=== PATIENT | male | born 1985 | race Caucasian/White ===

== ENCOUNTER 2020-09-09 15:13 | Emergency (ER) | payer MEDICARE, MEDICAID ==
[~2020-09-09] VITALS: Ht 162 cm; Wt 85.0 kg
[2020-09-09 15:18] VITALS: BP 159/86
--- NOTE | 2020-09-09 15:20 | ED Upper Extremity ---
General Chief Complaint: Upper Extremity Stated Complaint: RIGHT MIDDLE FINGER INJ History of Present Illness Date Seen by Provider: Sep 09, 2020 Time Seen by Provider: 15:20 Initial Comments 35-year-old male presents with injury to the distal aspect of his right middle finger. Patient reports he injured it 3 days ago and has some swelling at the tip of the finger. He states that he is not having any pain. He has full range of motion. Presents because of the swelling is got little bit of black finge rnail at the base of the fingernail. Patient presents because he just wants it looked at. Allergies and Home Medications Patient Home Medication List Home Medication List Reviewed: Yes Review of Systems Constitutional: no symptoms reported EENTM: no symptoms reported Respiratory: no symptoms reported Cardiovascular: no symptoms reported Gastrointestinal: no symptoms reported Genitourinary: no symptoms reported Musculoskeletal: see HPI Skin: see HPI Psychiatric/Neurological: No Symptoms Reported Physical Exam Vital Signs Vital Signs - First Documented 09/09/20 15:18 Temp 37.3 Pulse 110 Resp 16 B/P (MAP) 159/86 (110) Pulse Ox 99 O2 Delivery Room Air Capillary Refill : Height, Weight, BMI Height: '" Weight: lbs. oz. kg; BMI Method: General Appearance: no apparent distress Neck: full range of motion Cardiovascular: normal peripheral pulses, regular rate, rhythm Respiratory: chest non-tender, lungs clear Shoulder: normal inspection Elbow/Forearm: normal inspection Wrist: Yes normal inspection Hand: normal ROM, Right, swelling (Just below aspect right middle finger) Neurologic/Psychiatric: alert, normal mood/affect, oriented x 3 Progress/Results/Core Measures Results/Orders Vital Signs/I&O 09/09/20 15:18 Temp 37.3 Pulse 110 Resp 16 B/P (MAP) 159/86 (110) Pulse Ox 99 O2 Delivery Room Air Progress Progress Note : Progress Note Patient with contusion of the distal phalanx of the right middle finger with small hematoma on proximal aspect of the nail. Patient was offered x-ray and declined. Discussed with patient supportive care. Patient stable and discharged Departure Impression Primary Impression: Contusion of right middle finger with damage to nail Qualified Codes: S60.131A - Contusion of right middle finger with damage to nail, initial encounter Disposition: 01 HOME, SELF-CARE Condition: Stable Departure-Patient Inst. Referrals: SELF,ARLIN HANNAH (PCP/Family) Primary Care Physician Patient Instructions: Bruising Under the Nail, Common Finger Injuries (DC), Taking Care of Bruises Add. Discharge Instructions: Tylenol or ibuprofen as needed for pain, ice to affected area 2-3 times daily Follow-up with your primary care provider as needed All discharge instructions reviewed with patient and/or family. Voiced understanding. HENRI ANDERSON DO Sep 09, 2020 15:20
== END 2020-09-09 15:57 | disposition home or self-care (01) ==
LOC: ER FS 15:17
DX: S60.131A Contusion of right middle finger with damage to nail, initial encounter (principal); X58.XXXA Exposure to other specified factors, initial encounter
CPT/HCPCS: 99282

== ENCOUNTER 2020-09-27 16:37 | Emergency (ER) | payer MEDICARE, MEDICAID ==
[~2020-09-27] VITALS: Ht 162 cm; Wt 82.0 kg
[2020-09-27 16:40] VITALS: BP 152/83
[2020-09-27] MEDS ORDERED: TERB15CR6 (16:49)
--- NOTE | 2020-09-27 16:56 | ED Integumentary General ---
General Chief Complaint: Allergic Reaction Stated Complaint: RASH ON ARMS AND LEGS Nursing Triage Note: ARRIVED VIA AMB TO ROOM 03 WITH COMLPLAINTS OF A RASH ON BILAT ARMS AND BACK OF LEGS X1 WEEK. ALSO COMPLAINS OF A RASH ON HIS PRIVATE AREA. STATES HE HAS SEEN A DR FOR THIS RASH AND WAS PUT ON A OTC MED BUT IT IS NOT BETTER. History of Present Illness Date Seen by Provider: Sep 27, 2020 Time Seen by Provider: 16:52 Initial Comments 35-year-old male presents with, bilateral macular papular diffuse rash on his bilateral arms and legs has been there for about a week. Patient reports is itchy, patient straight wkoa-knw-pvbspbt cream that Recommended and has not worked. Patient significant other states she had a similar rash and was put on steroids and away in 3 days. Patient also has rash consistent with tinea crura has been using texn-ubl-afaseur medication for about a week with minimal improvement. No other complaints Allergies and Home Medications Home Medications Prednisone 20 Mg Tab, 20 MG PO DAILY Prescribed by: HENRI ANDERSON on 09/27/20 1701 Patient Home Medication List Home Medication List Reviewed: Yes Review of Systems Review of Systems Constitutional: see HPI EENTM: no symptoms reported Respiratory: no symptoms reported Cardiovascular: no symptoms reported Gastrointestinal: no symptoms reported Genitourinary: no symptoms reported Musculoskeletal: no symptoms reported Skin: see HPI Past Rpwecqe-Vcsmau-Okkqcg Hx Patient Social History Smoking Status: Never a Smoker Substance use?: No Alcohol Use?: No Physical Exam Vital Signs Vital Signs - First Documented 09/27/20 16:40 Temp 37.0 Pulse 92 Resp 16 B/P (MAP) 152/83 (106) Pulse Ox 98 O2 Delivery Room Air Capillary Refill : Less Than 3 Seconds General Appearance: WD/WN, no apparent distress Skin: rash Skin Problem Location: generalized Skin Problem Character: other (Tinia rash in groin, sporadic macular papular rash arms/legs ) Progress/Results/Core Measures Results/Orders Vital Signs/I&O 09/27/20 16:40 Temp 37.0 Pulse 92 Resp 16 B/P (MAP) 152/83 (106) Pulse Ox 98 O2 Delivery Room Air Blood Pressure Mean: 106 Departure Impression Primary Impression: Tinea cruris Additional Impression: Contact dermatitis Qualified Codes: L25.9 - Unspecified contact dermatitis, unspecified cause Disposition: 01 HOME, SELF-CARE Condition: Stable Departure-Patient Inst. Referrals: ARLIN MEDINA MD (PCP/Family) Primary Care Physician Patient Instructions: Jock Itch (DC), Skin Rash ED, Ringworm, Athlete's Foot, and Jock Itch, Contact Dermatitis (DC) Add. Discharge Instructions: Kbgw-hrp-wtmtzle ringworm/jock itch medication, I would recommend trying a powder form Follow-up with your primary care provider if symptoms not improving in 1 week All discharge instructions reviewed with patient and/or family. Voiced underst anding. Scripts Prednisone (Prednisone) 20 Mg Tab 20 MG PO DAILY, #4 TAB 0 Refills Prov: HENRI ANDERSON DO 09/27/20 HENRI ANDERSON DO Sep 27, 2020 16:56
[2020-09-27] MEDS ORDERED: PRD20T PO (17:01)
== END 2020-09-27 17:05 | disposition home or self-care (01) ==
LOC: EDUNIT# 16:37 → ER FS 16:39
DX: B35.6 Tinea cruris (principal); L25.9 Unspecified contact dermatitis, unspecified cause
CPT/HCPCS: 99282

== ENCOUNTER 2020-11-30 14:36 | Emergency (ER) | payer MEDICARE, MEDICAID ==
[~2020-11-30] VITALS: Ht 162 cm; Wt 83.9 kg
[~2020-11-30 14:36] MED LIST: PRD20T PO; TERB15CR6
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
[2020-11-30 15:45] VITALS: BP 141/91
== END 2020-11-30 15:45 | disposition home or self-care (01) ==
LOC: EDUNIT# 14:36 → ER FS 14:40
DX: S20.211A Contusion of right front wall of thorax, initial encounter (principal); Y04.8XXA Assault by other bodily force, initial encounter

== ENCOUNTER 2021-10-29 23:25 | Emergency (ER) | payer MEDICARE, MEDICAID ==
[~2021-10-29] VITALS: Ht 157.4 cm; Wt 70.3 kg
[2021-10-30] MEDS ORDERED: oxyCODONE/APAP 5/325MG (PERCOCET 5) TABLET PO ONE
[2021-10-30] MEDS ORDERED: PROCHLORPERAZINE 10 MG TAB (COMPAZINE) PO ONE
[2021-10-30] MEDS ORDERED: PROC-1 PO (00:06)
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
[2021-10-30 00:23] VITALS: BP 146/84
== END 2021-10-30 00:23 | disposition home or self-care (01) ==
LOC: EDUNIT# 23:25 → ER FS 23:29
DX: G43.909 Migraine, unspecified, not intractable, without status migrainosus (principal); Z28.310 Unvaccinated for COVID-19
CPT/HCPCS: 99283

== ENCOUNTER 2022-06-24 15:23 | Inpatient (IN) | payer OTHER, MEDICAID ==
[2022-06-24] VITALS (9 sets, daily range): BP systolic 92–148; BP diastolic 55–71
[~2022-06-24] VITALS: Ht 162.6 cm; Wt 75.1 kg
[~2022-06-24 15:23] MED LIST changes: +PROC-1 PO
[2022-06-24] MEDS ORDERED: NS IV 1000 ML 1,000 ML IV STA ×2 (15:32→16:53)
[2022-06-24] MEDS ORDERED: ACETAMINOPHEN 500 MG TAB (TYLENOL) PO STA (15:32)
--- NOTE | 2022-06-24 15:42 | ED Fever ---
History of Present Illness General Stated Complaint: FAST HEART RATE Source: patient, EMS, old records (notes from [facility] urgent care from Sangeeta Rice APRN) History of Present Illness Date Seen by Provider: June 24, 2022 Time Seen by Provider: 15:23 Initial Comments 37-year-old male presenting from [facility] walk-in clinic. He reports having a fever that started today. He also has had a mild dry cough. 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 He states that he is taking 2 weeks off from chemotherapy and then they were going to reassess things. He had been going to [place] for oncology care and chemotherapy. He has a port in his right chest. He denies having pain or burning with urination, diarrhea, abdominal pain, chest pain, nausea, vomiting, throat pain, runny nose. He has not taken anything for his fever. Timing/Duration: just prior to arrival Fever Quality: greater than 102 F (103.9 on arrival to ED) Fever Therapy WORKDAY FINANCIALS CONSULTANT: none Associated Symptoms: No abdominal pain, No chest pain, No confusion; cough; No diaphoresis, No headache, No muscle aches, No nausea/vomiting, No shortness of breath, No sore throat, No stiff neck, No syncope, No weakness Allergies and Home Medications Allergies Coded Allergies: No Known Drug Allergies (Unverified , 10/29/21) Patient Home Medication List Home Medication List Reviewed: Yes Prednisone (Prednisone) 20 Mg Tab, 20 MG PO DAILY Prescribed by: HENRI ANDERSON on 09/27/20 1701 Prochlorperazine Maleate (Compazine) 10 Mg Tablet, 10 MG PO Q8H Prescribed by: SULAIMAN GOVEA on 10/30/21 0006 Terbinafine HCl (Terbinafine) 15 Gm Cream..g., (Reported) Entered as Reported by: MARY CHAN on 09/27/20 1649 Review of Systems Review of Systems Constitutional: chills, fever EENTM: No nose congestion, No throat pain Respiratory: see HPI Cardiovascular: No chest pain; palpitations Gastrointestinal: No abdominal pain, No nausea, No vomiting Genitourinary: No dysuria Musculoskeletal: no symptoms reported Skin: no symptoms reported Psychiatric/Neurological: Anxiety Hematologic/Lymphatic: Other (Chemotherapy 06/15/2022 in [place] through his port) Past Sopdimu-Pcpbcd-Qzvqqv Hx Immunizations Up To Date First/Initial COVID19 Vaccinat: denies Past Medical History Surgery/Hospitalization HX: Metastatic Testicular cancer, Colon Cancer, Right Orchiectomy 03/2022, Portacath placement May 2022 Surgeries: Yes Physical Exam Vital Signs - First Documented 06/24/22 15:30 Temp 39.9 Pulse 136 Resp 19 B/P (MAP) 148/69 (95) Pulse Ox 98 O2 Delivery Room Air Capillary Refill : Height: '" Weight: lbs. oz. kg; 28.00 BMI Method: General Appearance: no apparent distress HEENT: PERRL/EOMI, pharynx normal Respiratory: chest non-tender, lungs clear, normal breath sounds, no respiratory distress, no accessory muscle use Cardiovascular: normal peripheral pulses, tachycardia Gastrointestinal: normal bowel sounds, non tender, soft, no pulsatile mass Extremities: normal range of motion, non-tender, normal capillary refill Neurologic/Psychiatric: alert, oriented x 3 Skin: normal color, warm/dry Focused Exam Lactate Level 06/24/22 15:35: Lactic Acid Level 2.04*H Lactic Acid Level Laboratory Tests Test 06/24/22 15:35 Lactic Acid Level 2.04 MMOL/L (0.50-2.00) *H Progress/Results/Core Measures Suspected Sepsis SIRS Temperature: Pulse: Respiratory Rate: Laboratory Tests 06/24/22 15:35: White Blood Count 1.4*L Blood Pressure / Mean: 06/24/22 15:35: Lactic Acid Level 2.04*H Laboratory Tests 06/24/22 15:35: Creatinine 0.87, Platelet Count 193, Total Bilirubin 0.4 Results/Orders Lab Results Laboratory Tests Test 06/24/22 15:35 06/24/22 16:40 Range/Units White Blood Count 1.4 *L 4.3-11.0 10^3/uL Red Blood Count 3.13 L 4.30-5.52 10^6/uL Hemoglobin 8.6 L 13.3-17.7 g/dL Hematocrit 26 L 40-54 % Mean Corpuscular Volume 83 80-99 fL Mean Corpuscular Hemoglobin 28 25-34 pg Mean Corpuscular Hemoglobin Concent 33 32-36 g/dL Red Cell Distribution Width 13.3 10.0-14.5 % Platelet Count 193 130-400 10^3/uL Mean Platelet Volume 9.1 9.0-12.2 fL Immature Granulocyte % (Auto) 0 % Neutrophils (%) (Auto) 19 L 42-75 % Lymphocytes (%) (Auto) 46 H 12-44 % Monocytes (%) (Auto) 35 H 0-12 % Eosinophils (%) (Auto) 0 0-10 % Basophils (%) (Auto) 1 0-10 % Neutrophils # (Auto) 0.3 L 1.8-7.8 10^3/uL Lymphocytes # (Auto) 0.7 L 1.0-4.0 10^3/uL Monocytes # (Auto) 0.5 0.0-1.0 10^3/uL Eosinophils # (Auto) 0.0 0.0-0.3 10^3/uL Basophils # (Auto) 0.0 0.0-0.1 10^3/uL Immature Granulocyte # (Auto) 0.0 0.0-0.1 10^3/uL Neutrophils % (Manual) 14 % Lymphocytes % (Manual) 34 % Monocytes % (Manual) 28 % Eosinophils % (Manual) 1 % Band Neutrophils 7 % Atypical Lymphocytes 16 % Platelet Estimate NORMAL Hypochromasia 1+ Microcytosis 2+ Macrocytosis 1+ Sodium Level 129 L 135-145 MMOL/L Potassium Level 4.2 3.6-5.0 MMOL/L Chloride Level 97 L 98-107 MMOL/L Carbon Dioxide Level 22 21-32 MMOL/L Anion Gap 10 5-14 MMOL/L Blood Urea Nitrogen 12 7-18 MG/DL Creatinine 0.87 0.60-1.30 MG/DL Estimat Glomerular Filtration Rate 115 BUN/Creatinine Ratio 14 Glucose Level 120 H 70-105 MG/DL Lactic Acid Level 2.04 *H 0.50-2.00 MMOL/L Calcium Level 8.7 8.5-10.1 MG/DL Corrected Calcium 9.2 8.5-10.1 MG/DL Total Bilirubin 0.4 0.1-1.0 MG/DL Aspartate Amino Transf (AST/SGOT) 10 5-34 U/L Alanine Aminotransferase (ALT/SGPT) 11 0-55 U/L Alkaline Phosphatase 81 40-136 U/L C-Reactive Protein 5.20 H <0.50 MG/DL Total Protein 6.4 6.4-8.2 GM/DL Albumin 3.4 3.2-4.5 GM/DL Influenza Type A (RT-PCR) Not Detected Not Detecte Influenza Type B (RT-PCR) Not Detected Not Detecte SARS-CoV-2 RNA (RT-PCR) Not Detected Not Detecte Urine Color DARK YELLOW Urine Clarity CLEAR Urine pH 8.0 5-9 Urine Specific Delta 1.020 1.016-1.022 Urine Protein NEGATIVE NEGATIVE Urine Glucose (UA) NEGATIVE NEGATIVE Urine Ketones NEGATIVE NEGATIVE Urine Nitrite NEGATIVE NEGATIVE Urine Bilirubin NEGATIVE NEGATIVE Urine Urobilinogen 0.2 < = 1.0 MG/DL Urine Leukocyte Esterase NEGATIVE NEGATIVE Urine RBC (Auto) NEGATIVE NEGATIVE Urine RBC NONE /HPF Urine WBC 0-2 /HPF Urine Squamous Epithelial Cells NONE /HPF Urine Crystals NONE /LPF Urine Bacteria NEGATIVE /HPF Urine Casts NONE /LPF Urine Mucus SMALL H /LPF Urine Culture Indicated NO My Orders Orders - LORETA KAUR MD Cbc With Automated Diff (06/24/22 15:32) Comprehensive Metabolic Panel (06/24/22 15:32) Blood Culture (06/24/22 15:32) Ua Culture If Indicated (06/24/22 15:32) Chest 1 View Ap/Pa Only (06/24/22 15:32) Ed Iv/Invasive Line Start (06/24/22 15:32) Crp Fs (06/24/22 15:32) Lactic Acid Analyzer (06/24/22 15:32) Covid 19 Inhouse Test (06/24/22 15:32) Influenza A And B By Pcr (06/24/22 15:32) Isolation Central Supply Req (06/24/22 15:32) Implanted Port: Access (06/24/22 15:32) Ns Iv 1000 Ml (Sodium Chloride 0.9%) (06/24/22 15:32) Acetaminophen Tablet (Tylenol Tablet) (06/24/22 15:32) Manual Differential (06/24/22 15:35) Cefepime Injection (Maxipime Injection) (06/24/22 16:53) Vancomycin Injection (Vancomycin Injecti (06/24/22 16:53) Ns Iv 1000 Ml (Sodium Chloride 0.9%) (06/24/22 16:53) Ed Admission (Communication) (06/24/22 16:54) Vital Signs/I&O 06/24/22 06/24/22 15:30 18:23 Temp 39.9 Pulse 136 89 Resp 19 16 B/P (MAP) 148/69 (95) 123/78 Pulse Ox 98 100 O2 Delivery Room Air Room Air Capillary Refill : Progress Note #1: Progress Note Potential diagnosis of sepsis, COVID, influenza, pneumonia, urinary tract infection, pyelonephritis, bronchitis. Access is implanted port and send labs for complete blood count, comprehensive metabolic profile, blood cultures, lactic acid, CRP, urinalysis, COVID swab, influenza swab. Placed on cardiac leather repairer to watch his heart rate and rhythm. My initial interpretation of his leather repairer shows tachycardia with a heart rate of 130. Obtain electrocardiogram for further evaluation of his heart rate and rhythm. Single view chest x-ray to evaluate for possible pathology in his chest and lungs to contribute to his fever and cough. Administer normal saline 1 L IV fluid bolus for hydration, acetaminophen 1 g p.o. for his fever. From review of his external prescription history he had Levofloxacin 500 mg po q day x 7days prescribed by Sai Viveros today. Progress Note #2: Time: 15:52 Progress Note On my personal interpretation and review of his electrocardiogram he does not have any acute ST elevation. Limited personal interpretation and review of his 1 view chest x-ray did not appreciate any acute infiltrate or effusion. Port on the right side of his chest appears to be in good position. Progress Note #3: Time: 16:36 Progress Note Labs came back showing he was neutropenic with WBC count of 1.4 with 19% neutrophils on automated differential. He was also anemic with hemoglobin of 8.6. His lactic Acid level was high indicating abnormally low tissue oxygenation. Was at upper limits of normal at 2.04. His electrolytes showed a sodium of 129 with potassium of 4.2, BUN 12, creatinine 0.87. His CRP was elevated to 5.2. I did call and discussed with Dr. Viveros his oncologist through [facility] [place]. He recommended that the patient being neutropenic and febrile that he would need cefepime and since he has borderline hypotension he would also need vancomycin. IV antibiotics and fluids should be continued at least until he has 48-hour blood cultures coming back either negative or showing direction for care. [address] Cochran, the on-call hospitalist for [facility]. Reviewed patient's presentation and his medical history of testicular cancer metastasized to the colon. He is undergoing chemotherapy with his last treatment on June 15. Currently has neutropenic fever with a white count of 1.4 and temperature of 103.9 on arrival to the ED. He does not have a specific source of infection at this point. His chest x-ray looked clear. His blood pressure has been soft with a systolic pressure between 99-1 tens systolic. His heart rate which started at 130 has improved to 1 15-1 20 with hydration and treating his fever. We will continue with IV fluids and I did speak with Dr. Viveros who recommended admission for neutropenic fever and getting him on cefepime and vancomycin. Waiting for blood cultures to be negative or show something specific to direct care at 48 hours before switching to oral medications. She accepted him for admission to a cardiac stepdown bed with his tachycardia and febrile neutropenia. She will place queued orders and continue to follow the patient. He is showing improvement with his temperature coming down with treatment and heart rate improving with treatment. He was anxious and upset about having to be admitted but understood it was necessary to treat him. ECG Initial ECG Impression Date: June 24, 2022 Initial ECG Impression Time: 15:46 Initial ECG Rate: 127 Initial ECG Rhythm: S.Tach Initial ECG Comparisson: No Previous ECG Available Comment On my personal interpretation and review of his electrocardiogram that shows sinus tachycardia with a heart rate of 127 bpm. WA interval 119 ms. Incomplete right bundle branch block. No acute ST elevation. QT interval 265 ms with a QTc interval 340 ms. There is no prior tracing available for comparison. Diagnostic Imaging Diagonstic Imaging: Xray Plain Films/CT/US/NM/MRI: chest Comments NAME: CAMILLA ANGUIANO [facility] REC#: [id number] PT STATUS: REG ER : 1985 PHYSICIAN: LORETA KAUR MD ADMIT DATE: 06/24/22/ER FS Draft Date of Exam:06/24/22 CHEST 1 VIEW AP/PA ONLY INDICATION: Shortness of breath with chest rash, history of testicular and colon cancer, undergoing chemotherapy. COMPARISON: I have no priors. FINDINGS: There is an indwelling right IJ port catheter with the tip secured to the cavoatrial junction in good alignment. The lungs are clear, and there is no failure pattern. No effusion or pneumothorax. The hilar and mediastinal contours are normal. No visible lung mass. No suspect bony pathology. IMPRESSION: Negative. Dictated on workstation # [id number] Dict: 06/24/22 1553 Trans: 06/24/22 1559 [id number] Interpreted by: VANESSA COUCH Electronically signed by: Reviewed: Reviewed by Me (I reviewed radiologist report at 1612) Critical Care Note Critical Care Total Time (minutes) 45 minutes Progress I spent at least 45 minutes of critical care time with the patient. Time excludes separately billable procedures. Time spent obtaining history from patient, medical records from [facility], electronic medical record, ordering test and reviewing results, ordering interventions and reviewing response, discussion with consultants, discussion with patient and family, documentation in the lalita t. Patient was at risk of sepsis and cardiovascular compromise and collapse due to his neutropenic fever and increased risk of infection. Departure Communication (Admissions) Time/Spoke to Admitting Phy: 16:[address] Cochran, the on-call hospitalist for [facility]. Reviewed patient's presentation and his medical history of testicular cancer metastasized to the colon. He is undergoing chemotherapy with his last treatment on June 15. Currently has neutropenic fever with a white count of 1.4 and temperature of 103.9 on arrival to the ED. He does not have a specific source of infection at this point. His chest x-ray looked clear. His blood pressure has been soft with a systolic pressure between 99-1 tens systolic. His heart rate which started at 130 has improved to 1 15-1 20 with hydration and treating his fever. We will continue with IV fluids and I did speak with Dr. Viveros who recommended admission for neutropenic fever and getting him on cefepime and vancomycin. Waiting for blood cultures to be negative or show something specific to direct care at 48 hours before switching to oral medications. They accepted him for admission to a cardiac stepdown bed with his tachycardia and febrile neutropenia. She will place queued orders and continue to follow the patient. Time/Spoke to Consulting Phy: 16:36 d/w Dr. Sai Viveros Impression Primary Impression: Neutropenic fever Additional Impressions: Fever and chills Cough Qualified Codes: R05.1 - Acute cough Tachycardia Disposition: 30 STILL A PATIENT Condition: Critical Admissions Decision to Admit Reason: Admit from ER (General) Decision to Admit/Date: June 24, 2022 Time/Decision to Admit Time: 16:43 Departure-Patient Inst. Referrals: ARLIN MEDINA MD (PCP/Family) Primary Care Physician LORETA KAUR MD June 24, 2022 15:42
[2022-06-24 15:56] LABS: BASOPHILS % (AUTO) 1 % (0-10); EOSINOPHILS % (AUTO) 0 % (0-10); HEMATOCRIT 26 % (40-54); HEMOGLOBIN 8.6 g/dL (13.3-17.7); LYMPHOCYTES # (AUTO) 0.7 10^3/uL (1.0-4.0); LYMPHOCYTES % (AUTO) 46 % (12-44); MEAN CORPUSCULAR HEMOGLOBIN 28 pg (25-34); MEAN CORPUSCULAR HGB CONC 33 g/dL (32-36); MEAN CORPUSCULAR VOLUME 83 fL (80-99); MEAN PLATELET VOLUME 9.1 fL (9.0-12.2); MONOCYTES # (AUTO) 0.5 10^3/uL (0.0-1.0); MONOCYTES % (AUTO) 35 % (0-12); NEUTROPHILS # (AUTO) 0.3 10^3/uL (1.8-7.8); NEUTROPHILS % (AUTO) 19 % (42-75); PLATELET COUNT 193 10^3/uL (130-400)
--- NOTE | 2022-06-24 15:59 | Diagnostic Imaging Report ---
INDICATION: Shortness of breath with chest rash, history of testicular and colon cancer, undergoing chemotherapy. COMPARISON: I have no priors. FINDINGS: There is an indwelling right IJ port catheter with the tip secured to the cavoatrial junction in good alignment. The lungs are clear, and there is no failure pattern. No effusion or pneumothorax. The hilar and mediastinal contours are normal. No visible lung mass. No suspect bony pathology. IMPRESSION: Negative. Dictated by: Dictated on workstation # [id number]
[2022-06-24 16:22] LABS: CREATININE SERUM 0.87 MG/DL (0.60-1.30); POTASSIUM 4.2 MMOL/L (3.6-5.0)
[2022-06-24 16:23] LABS: ALBUMIN 3.4 GM/DL (3.2-4.5); BILIRUBIN,TOTAL 0.4 MG/DL (0.1-1.0); CALCIUM 8.7 MG/DL (8.5-10.1); TOTAL PROTEIN 6.4 GM/DL (6.4-8.2)
[2022-06-24 16:28] LABS: WHITE BLOOD COUNT 1.4 10^3/uL (4.3-11.0)
[2022-06-24 16:40] LABS: ATYPICAL LYMPHOCYTES 16 %; BAND NEUTROPHILS 7 %; EOSINOPHILS % (MANUAL) 1 %; LYMPHOCYTES % (MANUAL) 34 %; MONOCYTES % (MANUAL) 28 %; NEUTROPHILS % (MANUAL) 14 %
[2022-06-24 16:41] LABS: HYPOCHROMASIA 1+; MICROCYTOSIS 2+; PLATELET ESTIMATE NORMAL
[2022-06-24 16:45] LABS: BILIRUBIN,URINE NEGATIVE (NEGATIVE); CLARITY,URINE CLEAR; GLUCOSE, URINE (UA) NEGATIVE (NEGATIVE); KETONES,URINE NEGATIVE (NEGATIVE); LEUKOCYTE ESTERASE ,URINE NEGATIVE (NEGATIVE); NITRITE,URINE NEGATIVE (NEGATIVE); PROTEIN,URINE NEGATIVE (NEGATIVE)
[2022-06-24 16:49] LABS: BACTERIA,URINE NEGATIVE /HPF; COLOR,URINE DARK YELLOW; WBC,URINE 0-2 /HPF
[2022-06-24] MEDS ORDERED: VANCOMYCIN INJECTION 1,000 MG in NS (IVPB) 250 ML IV STA (16:53)
[2022-06-24] MEDS ORDERED: CEFEPIME INJECTION 1,000 MG in NS (IVPB) 50 ML IV STA (16:53)
[2022-06-24] MEDS ORDERED: BISACODYL 10 MG SUPP (DULCOLAX) PR PRN ×2 (19:30)
[2022-06-24] MEDS ORDERED: polyethylene glycoL POWDER 17 GM (MIRALAX) PACK PO PRN ×2 (19:30)
[2022-06-24] MEDS ORDERED: diphenhydrAMINE 50 MG/ML INJ (BENADRYL) IVP PRN ×2 (19:30)
[2022-06-24] MEDS ORDERED: diphenhydrAMINE 25 MG TAB (BENADRYL) PO PRN ×2 (19:30)
[2022-06-24] MEDS ORDERED: ONDANSETRON 4 MG/2 ML (SDV) Z0FRAN IV PRN ×2 (19:30)
[2022-06-24] MEDS ORDERED: ACETAMINOPHEN 325 MG TABLET PO PRN (19:30)
[2022-06-24] MEDS ORDERED: ANTACID SUSP 30 ML UDC (MYLANTA) PO PRN ×2 (19:30)
[2022-06-24] MEDS ORDERED: VANCOMYCIN INJECTION 0.1 MG in NS (IVPB) 250 ML IV SCH (19:30)
[2022-06-24] MEDS ORDERED: HYDROmorphone 2 MG/ML VIAL (DILAUDID) IV PRN (19:30)
[2022-06-24] MEDS ORDERED: MELATONIN 3 MG TABLET PO PRN ×2 (19:30)
[2022-06-24] MEDS ORDERED: ONDANSETRON 4 MG (ZOFRAN) ORAL DISSOLVE TAB PO PRN ×2 (19:30)
[2022-06-24] MEDS: ENOXAPARIN 40 MG/0.4 ML (LOVENOX) SYR SC SCH (20:22)
[2022-06-24] MEDS: NS IV 1000 ML 1,000 ML IV SCH (20:22)
[2022-06-24] MEDS: ACETAMINOPHEN 325 MG TABLET PO PRN (20:23)
[2022-06-24] MEDS: DOCUSATE SODIUM 100 MG (COLACE) CAP PO SCH (20:23)
[2022-06-24] MEDS ORDERED: DOCUSATE SODIUM 100 MG (COLACE) CAP PO SCH (21:00)
[2022-06-25] VITALS (14 sets, daily range): BP systolic 90–111; BP diastolic 45–77
[2022-06-25] MEDS: CEFEPIME INJECTION 1,000 MG in NS (IVPB) 50 ML IV SCH ×5 (00:07→23:42)
[2022-06-25] MEDS: ACETAMINOPHEN 325 MG TABLET PO PRN (00:10)
[2022-06-25] MEDS: NS IV 1000 ML 1,000 ML IV SCH ×3 (03:42→23:42)
[2022-06-25 03:57] LABS: BASOPHILS % (AUTO) 1 % (0-10); EOSINOPHILS % (AUTO) 0 % (0-10); HEMATOCRIT 22 % (40-54); HEMOGLOBIN 7.1 g/dL (13.3-17.7); LYMPHOCYTES # (AUTO) 0.8 10^3/uL (1.0-4.0); LYMPHOCYTES % (AUTO) 57 % (12-44); MEAN CORPUSCULAR HEMOGLOBIN 27 pg (25-34); MEAN CORPUSCULAR HGB CONC 32 g/dL (32-36); MEAN CORPUSCULAR VOLUME 84 fL (80-99); MEAN PLATELET VOLUME 9.2 fL (9.0-12.2); MONOCYTES # (AUTO) 0.3 10^3/uL (0.0-1.0); MONOCYTES % (AUTO) 23 % (0-12); NEUTROPHILS # (AUTO) 0.3 10^3/uL (1.8-7.8); NEUTROPHILS % (AUTO) 20 % (42-75); PLATELET COUNT 164 10^3/uL (130-400); WHITE BLOOD COUNT 1.5 10^3/uL (4.3-11.0)
[2022-06-25 04:05] LABS: ALBUMIN 2.8 GM/DL (3.2-4.5); POTASSIUM 4.1 MMOL/L (3.6-5.0)
[2022-06-25 04:06] LABS: CALCIUM 7.9 MG/DL (8.5-10.1)
[2022-06-25 04:07] LABS: TOTAL PROTEIN 5.2 GM/DL (6.4-8.2)
[2022-06-25 04:09] LABS: BILIRUBIN,TOTAL 0.7 MG/DL (0.1-1.0)
[2022-06-25 04:11] LABS: CREATININE SERUM 0.74 MG/DL (0.60-1.30)
[2022-06-25] MEDS: VANCOMYCIN 1 GM/NS 250 ML IVPB IV SCH ×4 (05:10→18:44)
[2022-06-25] MEDS: DOCUSATE SODIUM 100 MG (COLACE) CAP PO SCH ×2 (09:09→20:30)
[2022-06-25] MEDS ORDERED: NS IV 500 ML 500 ML IV SCH (10:45)
--- NOTE | 2022-06-25 12:05 | Tele-ICU Progress Note ---
Progress Note Video assessment done , Hemodynamically stable Available charting reviewed, discussed with RN NO TELE-ICU CONSULT REQUESTED PATIENT IS STEP-DOWN STATUS ( not ICU ) BUT WILL BE AVAILABLE IF ANY QUESTIONS , LONG PATIENT IS PHYSICALLY IN ICU BED Discussed with RN. Hospital course: (06/24) 37yr M admitted for Neutropenic Fever, Tachycardia. Patient has a history of Metastatic Testicular Cancer last Chemo was on 06/15. A/P Fever - 103 on presentation - neutropenic fever - cefepime +vancomycin started 06/24 metastatic testicular cancer on June 15 - s/p chemo 06/15 Leukopenia -neutropenia -19% neutrophils on automated differential - post chemo Anemia - Hypononatremia - mild , resoved Lines : R IJ port ( for chemo , TEXTILE MACHINERY SALES REPRESENTATIVE present , (Central Line Necessity Reviewed) Focused Exam Lactate Level 06/24/22 15:35: Lactic Acid Level 2.04*H Height, Weight, BMI Height: '" Weight: lbs. oz. kg; 28.29 BMI Method: YELITZA YUAN MD June 25, 2022 12:05
--- NOTE | 2022-06-25 14:08 | Progress Note - Hospitalist ---
Focused Exam Lactate Level 06/24/22 15:35: Lactic Acid Level 2.04*H Objective Exam Vital Signs Vital Signs Date Time Temp Pulse Resp B/P (MAP) Pulse Ox O2 Delivery O2 Flow Rate FiO2 06/25/22 13:10 37.2 106 10 103/67 (79) Room Air 06/25/22 12:53 97 0.00 06/24/22 19:47 21 Capillary Refill : Less Than 3 Seconds Results/Procedures Lab Laboratory Tests 06/24/22 15:35 06/25/22 03:40 Patient resulted labs reviewed. LIZY ORTIZ June 25, 2022 14:08
--- NOTE | 2022-06-25 14:17 | History & Physical-Hospitalist ---
LIZY ORTIZ 06/25/22 1417: History of Present Illness HPI/Chief Complaint CC: neutropenic fever HPI: Rio Retana is a 37 yo M who presented to ED from [facility] walk-in clinic. He reports having a fever that started yesterday. He also has had a mild dry cough. 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 He states that he is taking 2 weeks off from chemotherapy and then they were going to reassess things. He had been going to [place] for oncology care and chemotherapy. He has a port in his right chest. In ED he denied having pain or burning with urination, diarrhea, abdominal pain, chest pain, nausea, vomiting, throat pain, runny nose. On exam today, his fever has subsided and he is breathing comfortably on RA. He denies n/v/f/c denies any pain, is able to ambulate without limits, has been urinating and moving bowels without issue or changes. Has been eating and drinking well. Pt is slightly anemic at 7.1. With exception of this, cancer, and neutropenia, pt is otherwise stable and can be moved to floor today after transfusion (1U PRBC's). Date Seen 06/25/22 Time Seen by a Provider: 10:30 Attending Physician Antonio Schulz MD PCP Admitting Physician: Wilma Koo DO Attending Physician: Wilma Koo DO Referring Physician Date of Admission June 24, 2022 at 19:00 Home Medications & Allergies Home Medications Reviewed patient Home Medication Reconciliation performed by pharmacy medication reconciliations certified ophthalmic medical technician and/or nursing. Patients Allergies have been reviewed. Allergies Allergies Coded Allergies No Known Drug Allergies (Unverified10/29/21) Past Asgvino-Jgspvd-Bzdgub Hx Patient Social History Tobacco Use?: No Smoking Status: Never a Smoker Smokeless Tobacco Frequency: Never a User Use of E-Cig and/or Vaping dev: No Substance use?: No Alcohol Use?: No Pt feels they are or have been: No Immunizations Up To Date First/Initial COVID19 Vaccinat: denies Second COVID19 Vaccination Dave: denies Tetanus Booster (TDap): Unknown Current Status Advance Directives: No Advance Directive Location: Home Communicates: Verbally Primary Language: Honduran Preferred Spoken Language: Honduran Is interpretation needed?: No Sensory deficits: Vision impairment Implanted or Applied Medical D: Port-a-cath Past Medical History Surgeries: Testicular (R orchiectomy 03/2022) Colon (Testicular mets in colon), Testicular Review of Systems Constitutional: no symptoms reported (today, chills and fever on admission) EENTM: no symptoms reported Respiratory: cough (mild dry cough); No dyspnea on exertion, No hemoptysis, No orthopnea, No short of breath Cardiovascular: no symptoms reported Gastrointestinal: no symptoms reported Genitourinary: no symptoms reported Musculoskeletal: no symptoms reported Skin: no symptoms reported Physical Exam Physical Exam Vital Signs Vital Signs - First Documented 06/24/22 06/24/22 06/25/22 15:30 19:47 12:53 Temp 39.9 Pulse 136 Resp 19 B/P (MAP) 148/69 (95) Pulse Ox 98 O2 Delivery Room Air O2 Flow Rate 0.00 FiO2 21 Capillary Refill : Less Than 3 Seconds Height, Weight, BMI Height: '" Weight: lbs. oz. kg; 28.29 BMI Method: General Appearance: No Apparent Distress HEENT: PERRL/EOMI, Normal ENT Inspection, Pharynx Normal, Moist Mucous Membranes Neck: Full Range of Motion, Normal Inspection, Non Tender Respiratory: Chest Non Tender, Lungs Clear, Normal Breath Sounds, No Accessory Muscle Use, No Respiratory Distress Cardiovascular: Regular Rate, Rhythm, No Edema, No Gallop, No JVD, No Murmur, Normal Peripheral Pulses Gastrointestinal: Normal Bowel Sounds, No Organomegaly, No Pulsatile Mass, Non Tender, Soft Extremity: Normal Capillary Refill, Normal Inspection, Normal Range of Motion, Non Tender, No Calf Tenderness, No Pedal Edema Neurologic/Psychiatric: Alert, Oriented x3, No Motor/Sensory Deficits, Normal Mood/Affect Skin: Normal Color, Warm/Dry Results Results/Procedures Labs Laboratory Tests 06/24/22 15:35 06/25/22 03:40 Patient resulted labs reviewed. Assessment/Plan Admission Diagnosis Neutropenic fever Assessment and Plan Neutropenic fever (s/p chemo) - fever subsided - cx's pending - vanc and cefepime - IVF - Per Dr. Viveros ( oncologist) will need to cont abx until 48hr blood cxs come back negative or otherwise direct care) Anemia - Hb 7.1 - will transfuse 1U PRBC's and reevaluate - ctm closely Testicular cancer with colon mets - s/p chemo 06/15 WILMA KOO DO 06/26/22 0527: Past Unienfb-Pcwhqv-Wwkhcz Hx Patient Social History Marrital Status: Smoking Status: Former Smoker Assessment/Plan Admission Diagnosis Admission Status: Inpatient Order (span 2 midnights) Reason for Inpatient Admission: neutropenic fever Supervisory-Addendum Brief Verification & Attestation Participated in pt care: history, MDM, physical Personally performed: exam, history, MDM, supervision of care Care discussed with: Medical Student Procedures: n/a Results interpretation: Verified all documentation Verification and Attestation of Medical Student E/M Service A medical student performed and documented this service in my presence. I reviewed and verified all information documented by the medical student and made modifications to such information, when appropriate. I personally performed the physical exam and medical decision making. Wilma Koo, June 26, 2022,05:26 LIZY ORTIZ June 25, 2022 14:17 WILMA KOO DO June 26, 2022 05:27
[2022-06-25] MEDS ORDERED: [UNRECOGNIZED DRUG - CODE] IV (14:28)
[2022-06-25] MEDS ORDERED: CISP50VI IV (14:28)
[2022-06-25] MEDS ORDERED: ONDA-106 PO (14:28)
[2022-06-25] MEDS ORDERED: [UNRECOGNIZED DRUG - CODE] PO (14:30)
--- NOTE | 2022-06-25 15:06 | Physical Therapy Evaluation ---
PT Evaluation-General Medical Diagnosis Admission Date June 24, 2022 at 19:00 Medical Diagnosis: Cough/fever/chills Onset Date: June 24, 2022 Therapy Diagnosis Therapy Diagnosis: Gait deficit, strength deficit Precautions Precautions/Isolations: Protective Isolation, Fall Prevention, Standard Precautions Weight Bear Status Right Lower Extremity: Right Full Weight Bearing Left Lower Extremity: Left Full Weight Bearing Referral Physician: Dr. Cochran Reason for Referral: Evaluation/Treatment Medical History Reviewed History: Yes Social History Home: Multilevel Current Living Status: Spouse Entry Into Home: Level Entry PT Steps Inside Home: 15 Prior Prior Level of Function SCALE: Activities may be completed with or without assistive devices. 1-Ftlevxfuvi-laeqamv completes the activity by him/herself with no assistance from a helper. 5-Set-up or Clean-up Assistance-helper sets up or cleans up; patient completes activity. Beulah assists only prior to or following the activity. 4-Supervision or Touching Assistance-helper provides verbal cues and/or touching/steadying and/or contact guard assistance as patient completes activity. Assistance may be provided throughout the activity or intermittently. 3-Partial/Moderate Assistance-helper does LESS THAN HALF the effort. Beulah lifts, holds or supports trunk or limbs, but provides less than half the effort. 2-Substantial/Maximal Assistance-helper does MORE THAN HALF the effort. Beulah lifts or holds trunk or limbs and provides more than half the effort. 4-Xxwntdbki-fclbtf does ALL the effort. Patient does none of the effort to complete the activity. Or, the assistance of 2 or more helpers is required for the patient to complete the activity. If activity was not attempted, code reason: 7-Patient Refused. 9-Not Applicable-not attempted and the patient did not perform the activity before the current illness, exacerbation or injury. 10-Not Attempted due to Environmental Limitations-(lack of equipment, weather restraints, etc.). 88-Not Attempted due to Medical Conditions or Safety Concerns. Bed Mobility: 6 Transfers (B,C,W/C): 6 Gait: 6 Stairs: 6 Indoor Mobility (Ambulation): Independent Stairs: Independent Prior Devices Use: None PT Evaluation-Current Subjective Patient lying supine in bed upon PT arrival, agreeable to treatment. Rates pain at 0/10 currently. Objective Patient Orientation: Person, Place, Time, Situation Attachments: IV ROM/Strength ROM Lower Extremities WFLs BLEs all planes Strength Lower Extremities 4/5 BLEs all planes Sensory Vision: Functional Hearing: Hearing Aid/Aides Sensation Right Lower Extremit: Intact Sensation Left Lower Extremity: Intact Transfers Roll Left to Right (QC): 4 Sit to Lying (QC): 4 Lying to Sitting/Side of Bed(Q: 4 Sit to Stand (QC): 4 Chair/Lsc-tz-Tvimz Xfer(QC): 4 Gait Does the Patient Walk?: Yes Mode of Locomotion: Walk Anticipated Mode of Locomotion: Walk Walk 10 feet (QC): 4 Walk 50 ft with 2 Turns(QC): 4 Walk 150 ft (QC): 4 Distance: 200 feet Gait Assistive Device: None Balance Sitting Static: Normal Sitting Dynamic: Normal Standing Static: Good Standing Dynamic: Good Assessment/Needs Patient tolerated treatment well. Patient is on reverse Isolation. Patient performs all bed mobility and transfers with SBA. Patient ambulates 200 feet with no AD, with SBA and verbal cues for safety, conservation of energy. Patient in bed post treatment with all needs met, nursing notified, call light in reach, family in the room. Rehab Potential: Good PT Dye Tub Operator Goals Dye Tub Operator Goals PT Dye Tub Operator Goals Time Frame: July 22, 2022 Roll Left & Right (QC): 6 Sit to Lying (QC): 6 Lying-Sitting on Side/Bed(QC): 6 Sit to Stand (QC): 6 Chair/Yzs-fs-Iubfd Xfer(QC): 6 Toilet Transfer (QC): 6 Does the Patient Walk: Yes Walk 10 feet (QC): 6 Walk 50ft with 2 Turns (QC): 6 Walk 150 ft (QC): 6 1 Step (curb) (QC): 4 4 Steps (QC): 4 PT Plan Problem List Problem List: Activity Tolerance, Functional Strength, Safety, Balance, Gait, Transfer, Bed Mobility, ROM Treatment/Plan Treatment Plan: Continue Plan of Care Treatment Plan: Bed Mobility, Education, Functional Activity Renny, Functional Strength, Group Therapy, Gait, Safety, Therapeutic Exercise, Transfers Treatment Duration: July 22, 2022 Frequency: 6 times per week Estimated Hrs Per Day: .25 hour per day Patient and/or Family Agrees t: Yes Safety Risks/Education Patient Education: Gait Training, Transfer Techniques Teaching Recipient: Patient, Family Teaching Methods: Demonstration, Discussion Response to Teaching: Verbalize Understanding, Return Demonstration Time Time In: 1415 Time Out: 1435 DATE: June 25, 2022 Total Billed Treatment Time: 20 Total Billed Treatment Visit, KANCHAN ROSS PT June 25, 2022 15:06
[2022-06-25] MEDS: ENOXAPARIN 40 MG/0.4 ML (LOVENOX) SYR SC SCH (19:56)
[2022-06-26] VITALS: BP 102/69
[2022-06-26 04:00] VITALS: BP 104/69
[2022-06-26 04:56] LABS: BASOPHILS % (AUTO) 0 % (0-10); EOSINOPHILS % (AUTO) 0 % (0-10); HEMATOCRIT 25 % (40-54); HEMOGLOBIN 8.3 g/dL (13.3-17.7); LYMPHOCYTES # (AUTO) 1.1 10^3/uL (1.0-4.0); LYMPHOCYTES % (AUTO) 41 % (12-44); MEAN CORPUSCULAR HEMOGLOBIN 28 pg (25-34); MEAN CORPUSCULAR HGB CONC 33 g/dL (32-36); MEAN CORPUSCULAR VOLUME 84 fL (80-99); MEAN PLATELET VOLUME 9.4 fL (9.0-12.2); MONOCYTES # (AUTO) 0.7 10^3/uL (0.0-1.0); MONOCYTES % (AUTO) 27 % (0-12); NEUTROPHILS # (AUTO) 0.8 10^3/uL (1.8-7.8); NEUTROPHILS % (AUTO) 30 % (42-75); PLATELET COUNT 203 10^3/uL (130-400); WHITE BLOOD COUNT 2.8 10^3/uL (4.3-11.0)
[2022-06-26 05:22] LABS: ALBUMIN 2.8 GM/DL (3.2-4.5); POTASSIUM 3.8 MMOL/L (3.6-5.0)
[2022-06-26 05:23] LABS: CALCIUM 8.2 MG/DL (8.5-10.1)
[2022-06-26 05:25] LABS: TOTAL PROTEIN 5.3 GM/DL (6.4-8.2)
[2022-06-26] MEDS: CEFEPIME INJECTION 1,000 MG in NS (IVPB) 50 ML IV SCH (05:25)
[2022-06-26 05:26] LABS: BILIRUBIN,TOTAL 0.4 MG/DL (0.1-1.0)
[2022-06-26] MEDS: VANCOMYCIN 1 GM/NS 250 ML IVPB IV SCH ×2 (05:26)
[2022-06-26 05:28] LABS: CREATININE SERUM 0.74 MG/DL (0.60-1.30)
[2022-06-26 08:00] VITALS: BP 112/70
[2022-06-26 09:15] VITALS: BP 112/70
[2022-06-26] MEDS: NS IV 1000 ML 1,000 ML IV SCH (09:57)
[2022-06-26] MEDS: DOCUSATE SODIUM 100 MG (COLACE) CAP PO SCH (09:58)
[2022-06-26] MEDS ORDERED: LEVO750T PO (11:06)
--- NOTE | 2022-06-26 11:06 | Discharge Summary ---
Discharge Summary Hospital Course Was the Problem List Reviewed?: Yes Problems/Dx: (1) Neutropenic fever (2) Fever and chills Status: Acute (3) Tachycardia Status: Acute (4) Cough Status: Acute Qualifiers: Qualified Codes: R05.1 - Acute cough Hospital Course Date of Admission: June 24, 2022 at 19:00 Admission Diagnosis : Family Physician/Provider: Antonio Schulz MD Date of Discharge: 06/26/22 Discharge Diagnosis: [ ] Hospital Course: Hospital Course: Rio Retana is a 37 yo M who presented to ED on 06/24 from [facility] walk-in clinic. He reported having a fever that started 06/23. He also had a mild dry cough. 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 He was taking 2 weeks off from chemotherapy before reassessment. He had been going to [place] for oncology care and chemotherapy. In ED he denied having pain or burning with urination, diarrhea, abdominal pain, chest pain, nausea, vomiting, throat pain, runny nose. His oncologist (Dr. Felice ALAS) recommended treatment with cefepime and Vancomycin until 48hr bcx's demonstrated no growth and he was admitted to ICU. We were unable to identify any plausible source or signs of infection though he was given 1U PRBC's on 06/25 for Hb of 7.1, Hb after transfusion (on 06/26) was 8.3. He was otherwise stable and moved to floor on 06/25. Today pt continued to be well with only issue being a mild dry cough. His bcx's came back negative and he is ready to be discharged with a course of levoquin. LIZY ORTIZ Labs and Pending Lab Test: Laboratory Tests 06/26/22 04:50: White Blood Count 2.8L, Red Blood Count 2.99L, Hemoglobin 8.3L, Hematocrit 25L, Mean Corpuscular Volume 84, Mean Corpuscular Hemoglobin 28, Mean Corpuscular Hemoglobin Concent 33, Red Cell Distribution Width 13.7, Platelet Count 203, Mean Platelet Volume 9.4, Immature Granulocyte % (Auto) 1, Neutrophils (%) (Auto) 30L, Lymphocytes (%) (Auto) 41, Monocytes (%) (Auto) 27H, Eosinophils (%) (Auto) 0, Basophils (%) (Auto) 0, Neutrophils # (Auto) 0.8L, Lymphocytes # (Auto) 1.1, Monocytes # (Auto) 0.7, Eosinophils # (Auto) 0.0, Basophils # (Auto) 0.0, Immature Granulocyte # (Auto) 0.0, Sodium Level 137, Potassium Level 3.8, Chloride Level 108H, Carbon Dioxide Level 22, Anion Gap 7, Blood Urea Nitrogen 9, Creatinine 0.74, Estimat Glomerular Filtration Rate 120, BUN/Creatinine Ratio 12, Glucose Level 108H, Calcium Level 8.2L, Corrected Calcium 9.2, Total Bilirubin 0.4, Aspartate Amino Transf (AST/SGOT) 19, Alanine Aminotransferase (ALT/SGPT) 28, Alkaline Phosphatase 79, Total Protein 5.3L, Albumin 2.8L Microbiology 06/24/22 Blood Culture - Preliminary, Resulted No growth Home Meds Active Reported Magnesium Gluconate 27.5 Mg Magnesium (500 Mg) Tablet 500 Mg PO HS Ondansetron HCl 8 Mg Tablet 8 Mg PO Q8H PRN CISplatin (Cisplatin) 50 Mg Vial 37 Mg IV UD TOOK INFUSIONS ONCE DAILY X 5 DAYS Etopophos (Etoposide Phosphate) 100 Mg Vial 185 Mg IV UD TOOK INFUSIONS ONCE DAILY X 5 DAYS Assessment/Pt Instructions pcp 1 week Discharge Planning: <30 minutes discharge planning Discharge Instructions Discharge Diet: No Restrictions Activity as Tolerated: Yes Discharge Physical Examination Vital Signs Vital Signs Date Time Temp Pulse Resp B/P (MAP) Pulse Ox O2 Delivery O2 Flow Rate FiO2 06/26/22 09:15 37.0 105 18 112/70 (84) 98 Room Air 06/25/22 12:53 0.00 06/24/22 19:47 21 General Appearance: No Apparent Distress, WD/WN Respiratory: Lungs Clear, Normal Breath Sounds Cardiovascular: Regular Rate, Rhythm Allergies: Coded Allergies: No Known Drug Allergies (Unverified , 10/29/21) Discharge Summary Date of Admission June 24, 2022 at 19:00 Date of Discharge Discharge Date: June 26, 2022 Admission Diagnosis LU KOO DO June 26, 2022 11:06
--- NOTE | 2022-06-26 11:25 | Physical Therapy Progress Note ---
Therapy Progress Note Patient is up independently in room and declined continued need for PT. PT to dismiss patient from services at this time. Physician notified. JACINTO SOUSA PT June 26, 2022 11:25
--- NOTE | 2022-06-26 11:58 | Progress Note ---
LIZY ORTIZ 06/26/22 1158: Progress Note Hospital Course: Rio Retana is a 37 yo M who presented to ED on 06/24 from [facility] walk-in clinic. He reported having a fever that started 06/23. He also had a mild dry cough. 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 He was taking 2 weeks off from chemotherapy before reassessment. He had been going to [place] for oncology care and chemotherapy. In ED he denied having pain or burning with urination, diarrhea, abdominal pain, chest pain, nausea, vomiting, throat pain, runny nose. His oncologist (Dr. Felice ALAS) recommended treatment with cefepime and Vancomycin until 48hr bcx's demonstrated no growth and he was admitted to ICU. We were unable to identify any plausible source or signs of infection though he was given 1U PRBC's on 06/25 for Hb of 7.1, Hb after transfusion (on 06/26) was 8.3. He was otherwise stable and moved to floor on 06/25. Today pt continued to be well with only issue being a mild dry cough. His bcx's came back negative and he is ready to be discharged with a course of levoquin. WILMA KOO DO 06/26/222121: Supervisory-Addendum Brief Verification & Attestation Participated in pt care: history, MDM, physical Personally performed: exam, history, MDM, supervision of care Care discussed with: Medical Student Procedures: n/a Results interpretation: Verified all documentation Verification and Attestation of Medical Student E/M Service A medical student performed and documented this service in my presence. I reviewed and verified all information documented by the medical student and made modifications to such information, when appropriate. I personally performed the physical exam and medical decision making. Wilma Koo June 26, 2022,21:22 LIZY ORTIZ June 26, 2022 11:58 WILMA KOO DO June 26, 2022 21:22
[2022-06-26 12:00] VITALS: BP 106/69
== END 2022-06-26 13:53 | disposition home or self-care (01) | DRG 809 ==
LOC: EDUNIT# 15:23 → ER FS 15:24 → ICU 19:00 → 4TH 06-25 16:00
PROVIDERS: ADMIT Internal Medicine; ATTEND Internal Medicine
DX: D70.9 Neutropenia, unspecified (principal); C78.5 Secondary malignant neoplasm of large intestine and rectum; E87.1 Hypo-osmolality and hyponatremia; R50.81 Fever presenting with conditions classified elsewhere; R05.1 Acute cough; R00.0 Tachycardia, unspecified; Z28.310 Unvaccinated for COVID-19; Z85.47 Personal history of malignant neoplasm of testis; Z20.822 Contact with and (suspected) exposure to COVID-19; D64.9 Anemia, unspecified; Z92.21 Personal history of antineoplastic chemotherapy; Z87.891 Personal history of nicotine dependence; Z90.79 Acquired absence of other genital organ(s)
CPT/HCPCS: 36415; 71045; 80053; 81000; 83605; 85007; 85025; 85027; 86141; 86850; 86900; 86901; 86920; 87040; 87636; 93005

== ENCOUNTER 2022-07-19 17:08 | Emergency (ER) | payer OTHER, MEDICAID ==
[~2022-07-19] VITALS: Ht 162.5 cm; Wt 73.2 kg
[~2022-07-19 17:08] MED LIST changes: +CISP50VI IV; +LEVO750T PO; +ONDA-106 PO; +[UNRECOGNIZED DRUG - CODE] IV; +[UNRECOGNIZED DRUG - CODE] PO
[2022-07-19] MEDS ORDERED: ACETAMINOPHEN 500 MG TAB (TYLENOL) PO ONE (17:30)
--- NOTE | 2022-07-19 17:34 | ED General ---
General Chief Complaint: Cough/Cold/Flu Symptoms Stated Complaint: COUGH; FEVER Nursing Triage Note: Patient presents to the ED with c/o fever, cough, and fatigue. Currently receiving chemotherapy for metastatic testicular cancer. Reports last chemo cycle was 07/13/22 - 07/17/22. Source of Information: Patient, Family () Exam Limitations: No Limitations History of Present Illness Date Seen by Provider: July 19, 2022 Time Seen by Provider: 17:25 Initial Comments 37-year-old male presents to the emergency department today for fever. He has a history of testicular cancer that was treated surgically on April 09. More recently they had a CT scan of his abdomen that showed concerning lymph nodes. He is now on chemotherapy with his last treatment Wednesday through Wednesday of last week. He has had decreased p.o. intake since that time and started to have fevers this morning. Temperature to 100.3 when taken orally at home. His is concerned because he ended up in the ICU after his last bowel chemotherapy with a significant infection and high fevers. He has had a cough for last couple of days. No other symptoms. All other systems reviewed and negative except documented per HPI. Voice recognition software was used to help create this chart Allergies and Home Medications Allergies Coded Allergies: No Known Drug Allergies (Unverified , 10/29/21) Patient Home Medication List Home Medication List Reviewed: Yes Cisplatin (CISplatin) 50 Mg Vial, 37 MG IV UD, (Reported) Entered as Reported by: ALBERT GOLDSTEIN on 06/25/22 142 Etoposide Phosphate (Etopophos) 100 Mg Vial, 185 MG IV UD, (Reported) Entered as Reported by: ALBERT GOLDSTEIN on 06/25/22 1428 Levofloxacin (Levofloxacin) 750 Mg Tablet, 750 MG PO DAILY Prescribed by: LU KOO on 06/26/22 1106 Magnesium Gluconate (Magnesium Gluconate) 27.5 Mg Magnesium (500 Mg) Tablet, 500 MG PO HS, (Reported) Entered as Reported by: ALBERT GOLDSTEIN on 06/25/22 1430 Ondansetron HCl (Ondansetron HCl) 8 Mg Tablet, 8 MG PO Q8H PRN for NAUSEA/VOMITING-1ST LINE, (Reported) Entered as Reported by: ALBERT GOLDSTEIN on 06/25/22 1428 Review of Systems Review of Systems Constitutional: see HPI Past Faxgpmf-Ojrfyh-Kcdatn Hx Patient Social History Tobacco Use?: No Use of E-Cig and/or Vaping dev: No Substance use?: No Alcohol Use?: No Pt feels they are or have been: No Immunizations Up To Date First/Initial COVID19 Vaccinat: denies Second COVID19 Vaccination Dave: denies Third COVID19 Vaccination Date: denies Past Medical History Surgery/Hospitalization HX: Metastatic Testicular cancer, Colon Cancer, Right Orchiectomy 03/2022,Portacath placement May 2022 Surgeries: Yes Testicular Colon, Testicular Physical Exam Vital Signs Vital Signs - First Documented 07/19/22 17:13 Temp 38.0 Pulse 100 Resp 16 B/P (MAP) 119/63 (81) Pulse Ox 100 O2 Delivery Room Air Capillary Refill : Less Than 3 Seconds Height, Weight, BMI Height: '" Weight: lbs. oz. kg; 27.00 BMI Method: General Appearance: No Apparent Distress, WD/WN HEENT: Normal ENT Inspection, Pharynx Normal Neck: Full Range of Motion, Normal Inspection, Non Tender, Supple Respiratory: Chest Non Tender, Lungs Clear, Normal Breath Sounds, No Accessory Muscle Use, No Respiratory Distress Cardiovascular: Regular Rate, Rhythm, No Murmur, Normal Peripheral Pulses Gastrointestinal: Normal Bowel Sounds, No Organomegaly, No Pulsatile Mass, Non Tender, Soft Extremity: Normal Capillary Refill, Normal Inspection, Normal Range of Motion, Non Tender, No Calf Tenderness Neurologic/Psychiatric: Alert, Oriented x3, No Motor/Sensory Deficits Skin: Normal Color, Warm/Dry Progress/Results/Core Measures Suspected Sepsis SIRS Temperature: Pulse: 100 Respiratory Rate: 16 Laboratory Tests 07/19/22 17:40: White Blood Count 10.0 Blood Pressure 119 /63 Mean: 81 Laboratory Tests 07/19/22 17:40: Platelet Count 131 Results/Orders Lab Results Laboratory Tests Test 07/19/22 17:40 Range/Units White Blood Count 10.0 4.3-11.0 10^3/uL Red Blood Count 3.59 L 4.30-5.52 10^6/uL Hemoglobin 10.2 L 13.3-17.7 g/dL Hematocrit 31 L 40-54 % Mean Corpuscular Volume 85 80-99 fL Mean Corpuscular Hemoglobin 28 25-34 pg Mean Corpuscular Hemoglobin Concent 33 32-36 g/dL Red Cell Distribution Width 15.8 H 10.0-14.5 % Platelet Count 131 130-400 10^3/uL Mean Platelet Volume 8.4 L 9.0-12.2 fL Immature Granulocyte % (Auto) 1 % Neutrophils (%) (Auto) 91 H 42-75 % Lymphocytes (%) (Auto) 5 L 12-44 % Monocytes (%) (Auto) 0 0-12 % Eosinophils (%) (Auto) 3 0-10 % Basophils (%) (Auto) 0 0-10 % Neutrophils # (Auto) 9.1 H 1.8-7.8 10^3/uL Lymphocytes # (Auto) 0.5 L 1.0-4.0 10^3/uL Monocytes # (Auto) 0.0 0.0-1.0 10^3/uL Eosinophils # (Auto) 0.3 0.0-0.3 10^3/uL Basophils # (Auto) 0.0 0.0-0.1 10^3/uL Immature Granulocyte # (Auto) 0.1 0.0-0.1 10^3/uL Neutrophils % (Manual) 95 % Lymphocytes % (Manual) 4 % Eosinophils % (Manual) 1 % My Orders Orders - AZAR KING DO Cbc And Manual Diff (07/19/22 17:29) Acetaminophen Tablet (Tylenol Tablet) (07/19/22 17:30) Covid 19 Inhouse Test (07/19/22 17:30) Blood Culture (07/19/22 17:31) Chest Pa/Lat (2 View) (07/19/22 17:34) Medications Given in ED Current Medications Medications Dose Ordered Sig/Elizabeth Route Start Time Stop Time Status Last Admin Dose Admin Acetaminophen 1,000 mg ONCE ONCE PO 07/19/22 17:30 07/19/22 17:31 DC 07/19/22 17:50 1,000 MG Vital Signs/I&O 07/19/22 07/19/22 17:13 17:50 Temp 38.0 38.0 Pulse 100 Resp 16 B/P (MAP) 119/63 (81) Pulse Ox 100 O2 Delivery Room Air Capillary Refill : Less Than 3 Seconds Blood Pressure Mean: 81 Departure Communication (Admissions) Patient is hemodynamically stable. He is not neutropenic at this time. There is no evidence for focal bacterial infection. We did draw blood cultures and will notify of results become positive. He declines COVID testing. I spoke with him at length stating that he would be a candidate for Paxlovid should his COVID test be positive. He again declined stating he does not want that thing of his nose. Conservative management for now with Tylenol and ibuprofen and close oncology follow-up. Impression Primary Impression: Fever Qualified Codes: R50.9 - Fever, unspecified Disposition: HOME, SELF-CARE Condition: Stable Departure-Patient Inst. Referrals: ARLIN MEDINA MD (PCP) Primary Care Physician Patient Instructions: Fever of Unknown Origin Add. Discharge Instructions: Alternate ibuprofen and Tylenol as needed for fevers. You need to increase your fluids at home. There is no evidence that you need antibiotics at this time however if you continue to have fevers more than the next 24 to 48 hours you should follow-up with your oncologist by calling their office. Return to the emergency department immediately for inability tolerate fluids or food or if your symptoms change in any way concerning to you. You have declined a COVID test. Again I do recommend that you have this time as you be a candidate for treatment of COVID with oral medications should it be positive. If you change your mind please return to the emergency department or go to your primary doctor. All discharge instructions reviewed with patient and/or family. Voiced und erstanding. AZAR KING DO July 19, 2022 17:34
[2022-07-19 17:44] LABS: BASOPHILS % (AUTO) 0 % (0-10); EOSINOPHILS # (AUTO) 0.3 10^3/uL (0.0-0.3); EOSINOPHILS % (AUTO) 3 % (0-10); HEMATOCRIT 31 % (40-54); HEMOGLOBIN 10.2 g/dL (13.3-17.7); LYMPHOCYTES # (AUTO) 0.5 10^3/uL (1.0-4.0); LYMPHOCYTES % (AUTO) 5 % (12-44); MEAN CORPUSCULAR HEMOGLOBIN 28 pg (25-34); MEAN CORPUSCULAR HGB CONC 33 g/dL (32-36); MEAN CORPUSCULAR VOLUME 85 fL (80-99); MEAN PLATELET VOLUME 8.4 fL (9.0-12.2); MONOCYTES % (AUTO) 0 % (0-12); NEUTROPHILS # (AUTO) 9.1 10^3/uL (1.8-7.8); NEUTROPHILS % (AUTO) 91 % (42-75); PLATELET COUNT 131 10^3/uL (130-400)
[2022-07-19 17:55] LABS: EOSINOPHILS % (MANUAL) 1 %; LYMPHOCYTES % (MANUAL) 4 %; NEUTROPHILS % (MANUAL) 95 %
--- NOTE | 2022-07-19 18:01 | Diagnostic Imaging Report ---
INDICATION: Fever, cough and fatigue. EXAMINATION: PA and lateral views of the chest were obtained with comparison made to study of 06/24/2022. FINDINGS: Heart size and pulmonary vascularity are within normal limits, and the lungs are clear, bilaterally. Right anterior chest wall port remains in stable position with catheter tip projecting over the lower superior vena cava. IMPRESSION: Unremarkable chest. Dictated by: Dictated on workstation # [id number]
[2022-07-19 18:38] VITALS: BP 125/55
== END 2022-07-19 18:38 | disposition home or self-care (01) ==
LOC: EDUNIT# 17:08 → ER FS 17:10
DX: R50.9 Fever, unspecified (principal); C62.90 Malignant neoplasm of unspecified testis, unspecified whether descended or undescended; C78.5 Secondary malignant neoplasm of large intestine and rectum; Z90.79 Acquired absence of other genital organ(s); Z28.310 Unvaccinated for COVID-19
CPT/HCPCS: 36415; 71046; 85007; 85027; 87040

== ENCOUNTER 2022-07-21 10:51 | Outpatient (RCR) | payer OTHER, MEDICAID ==
[2022-07-13 09:30] VITALS: BP 117/78
[2022-07-13 10:17] LABS: BASOPHILS # (AUTO) 0.1 10^3/uL (0.0-0.1); BASOPHILS % (AUTO) 1 % (0-10); EOSINOPHILS # (AUTO) 0.1 10^3/uL (0.0-0.3); EOSINOPHILS % (AUTO) 1 % (0-10); HEMATOCRIT 31 % (40-54); HEMOGLOBIN 10.2 g/dL (13.3-17.7); LYMPHOCYTES # (AUTO) 1.6 10^3/uL (1.0-4.0); LYMPHOCYTES % (AUTO) 18 % (12-44); MEAN CORPUSCULAR HEMOGLOBIN 28 pg (25-34); MEAN CORPUSCULAR HGB CONC 33 g/dL (32-36); MEAN CORPUSCULAR VOLUME 85 fL (80-99); MEAN PLATELET VOLUME 9.2 fL (9.0-12.2); MONOCYTES # (AUTO) 0.9 10^3/uL (0.0-1.0); MONOCYTES % (AUTO) 10 % (0-12); NEUTROPHILS # (AUTO) 6.1 10^3/uL (1.8-7.8); NEUTROPHILS % (AUTO) 70 % (42-75); PLATELET COUNT 225 10^3/uL (130-400); WHITE BLOOD COUNT 8.7 10^3/uL (4.3-11.0)
[2022-07-13 10:35] LABS: ALBUMIN 3.6 GM/DL (3.2-4.5); BILIRUBIN,TOTAL 0.3 MG/DL (0.1-1.0); CALCIUM 8.9 MG/DL (8.5-10.1); CREATININE SERUM 0.81 MG/DL (0.60-1.30); TOTAL PROTEIN 6.5 GM/DL (6.4-8.2)
[2022-07-13] MEDS: FOSAPREPITANT (CANCER CENTER) 150 MG in NS (IVPB) CANCER CENTER ONLY 150 ML IV SCH (10:54)
[2022-07-13] MEDS: NS IV 1000 ML (CANCER CTR) IV SCH (10:54)
[2022-07-13] MEDS: PALONOSETRON HCL 0.25 MG, dexAMETHasone INJECTION 20 MG in NS (IVPB) 50 ML IV SCH (10:55)
[2022-07-13] MEDS: CISPLATIN IV SCH (11:29)
[2022-07-13] MEDS: MANNITOL IV SCH (11:29)
[2022-07-13] MEDS: [UNRECOGNIZED DRUG - OTHER] IV SCH (11:29)
[2022-07-13] MEDS: MAGNESIUM SULFATE IV SCH (11:29)
[2022-07-13] MEDS: NORMAL SALINE IV SCH (12:16)
[2022-07-13] MEDS: ETOPOSIDE IV SCH (12:16)
[2022-07-14 10:55] VITALS: BP 111/74
[2022-07-14] MEDS: NS IV 1000 ML (CANCER CTR) IV SCH (11:16)
[2022-07-14] MEDS: dexAMETHasone INJECTION 20 MG in NS (IVPB) 50 ML IV SCH (11:16)
[2022-07-14] MEDS: MANNITOL IV SCH (11:32)
[2022-07-14] MEDS: CISPLATIN IV SCH (11:32)
[2022-07-14] MEDS: MAGNESIUM SULFATE IV SCH (11:32)
[2022-07-14] MEDS: [UNRECOGNIZED DRUG - OTHER] IV SCH (11:32)
[2022-07-14] MEDS: NORMAL SALINE IV SCH (12:48)
[2022-07-14] MEDS: ETOPOSIDE IV SCH (12:48)
[2022-07-14] MEDS: HEParin (CENTRAL IV FLUSH) 500 UNIT/5 ML SYR IV PRN (13:50)
[2022-07-15 11:27] VITALS: BP 114/74
[2022-07-15] MEDS: NS IV 1000 ML (CANCER CTR) IV SCH (11:31)
[2022-07-15] MEDS: PALONOSETRON HCL 0.25 MG, dexAMETHasone INJECTION 20 MG in NS (IVPB) 50 ML IV SCH (11:32)
[2022-07-15] MEDS: CISPLATIN IV SCH (11:59)
[2022-07-15] MEDS: [UNRECOGNIZED DRUG - OTHER] IV SCH (11:59)
[2022-07-15] MEDS: MANNITOL IV SCH (11:59)
[2022-07-15] MEDS: MAGNESIUM SULFATE IV SCH (11:59)
[2022-07-15] MEDS: NORMAL SALINE IV SCH (12:03)
[2022-07-15] MEDS: ETOPOSIDE IV SCH (12:03)
[2022-07-16] MEDS: NS IV 1000 ML (CANCER CTR) IV SCH (10:57)
[2022-07-16] MEDS: dexAMETHasone INJECTION 20 MG in NS (IVPB) 50 ML IV SCH (10:57)
[2022-07-16 11:00] VITALS: BP 110/67
[2022-07-16] MEDS: CISPLATIN IV SCH (11:14)
[2022-07-16] MEDS: [UNRECOGNIZED DRUG - OTHER] IV SCH (11:14)
[2022-07-16] MEDS: MAGNESIUM SULFATE IV SCH (11:14)
[2022-07-16] MEDS: MANNITOL IV SCH (11:14)
[2022-07-16] MEDS: NORMAL SALINE IV SCH (12:19)
[2022-07-16] MEDS: ETOPOSIDE IV SCH (12:19)
[2022-07-17] MEDS: FOSAPREPITANT (CANCER CENTER) 150 MG in NS (IVPB) CANCER CENTER ONLY 150 ML IV SCH (10:59)
[2022-07-17] MEDS: PALONOSETRON HCL 0.25 MG, dexAMETHasone INJECTION 20 MG in NS (IVPB) 50 ML IV SCH (10:59)
[2022-07-17] MEDS: HEParin (CENTRAL IV FLUSH) 500 UNIT/5 ML SYR IV PRN (10:59)
[2022-07-17] MEDS: ETOPOSIDE IV SCH (11:00)
[2022-07-17] MEDS: MAGNESIUM SULFATE IV SCH (11:00)
[2022-07-17] MEDS: NORMAL SALINE IV SCH (11:00)
[2022-07-17] MEDS: MANNITOL IV SCH (11:00)
[2022-07-17] MEDS: NS IV 1000 ML (CANCER CTR) IV SCH (11:00)
[2022-07-17] MEDS: CISPLATIN IV SCH (11:00)
[2022-07-17] MEDS: [UNRECOGNIZED DRUG - OTHER] IV SCH (11:00)
[2022-07-17 11:01] VITALS: BP 117/77
[~2022-07-21] VITALS: Ht 162.5 cm; Wt 74.1 kg
[~2022-07-21 10:51] MED LIST changes: +ALTEPLASE 2 MG (CATHFLO) IV ONE; +PEGFILGRASTIM-BMEZ 6 MG/0.6 ML (ZIEXTENZO) SQ SCH
== END 2022-07-22 | disposition home or self-care (01) ==
LOC: ONC 10:51
PROVIDERS: ATTEND Internal Medicine Hematology & Oncology
DX: Z51.11 Encounter for antineoplastic chemotherapy (principal); Z45.2 Encounter for adjustment and management of vascular access device; C62.90 Malignant neoplasm of unspecified testis, unspecified whether descended or undescended
CPT/HCPCS: 36591; 36593; 80053; 85025; 96360; 96361; 96367; 96372; 96375; 96413; 96417; 96523

== ENCOUNTER 2022-08-07 13:52 | Emergency (ER) | payer OTHER, MEDICAID ==
[~2022-08-07] VITALS: Ht 162.5 cm; Wt 74.8 kg
[~2022-08-07 13:52] MED LIST changes: -ALTEPLASE 2 MG (CATHFLO) IV ONE; -PEGFILGRASTIM-BMEZ 6 MG/0.6 ML (ZIEXTENZO) SQ SCH
[2022-08-07 13:55] VITALS: BP 102/61
[2022-08-07] MEDS ORDERED: NS IV 1000 ML 1,000 ML IV STA (14:02)
[2022-08-07] MEDS ORDERED: ONDANSETRON 4 MG/2 ML (SDV) Z0FRAN IVP STA (14:02)
[2022-08-07 14:10] LABS: BASOPHILS % (AUTO) 0 % (0-10); EOSINOPHILS % (AUTO) 0 % (0-10); HEMATOCRIT 29 % (40-54); HEMOGLOBIN 9.6 g/dL (13.3-17.7); LYMPHOCYTES # (AUTO) 1.7 10^3/uL (1.0-4.0); LYMPHOCYTES % (AUTO) 16 % (12-44); MEAN CORPUSCULAR HEMOGLOBIN 28 pg (25-34); MEAN CORPUSCULAR HGB CONC 33 g/dL (32-36); MEAN CORPUSCULAR VOLUME 86 fL (80-99); MEAN PLATELET VOLUME 8.5 fL (9.0-12.2); MONOCYTES # (AUTO) 0.2 10^3/uL (0.0-1.0); MONOCYTES % (AUTO) 2 % (0-12); NEUTROPHILS # (AUTO) 8.2 10^3/uL (1.8-7.8); NEUTROPHILS % (AUTO) 80 % (42-75); PLATELET COUNT 388 10^3/uL (130-400); WHITE BLOOD COUNT 10.2 10^3/uL (4.3-11.0)
--- NOTE | 2022-08-07 14:10 | ED GI ---
General Chief Complaint: Abdominal/GI Problems Stated Complaint: VOMITING Source of Information: Patient, Spouse History of Present Illness Date Seen by Provider: Aug 07, 2022 Time Seen by Provider: 13:56 Initial Comments 37-year-old male presenting with complaints of nausea, vomiting, diarrhea since this morning. He does have a history of testicular cancer and had surgery March 2022 for that and is currently undergoing chemotherapy. He was due to go to chemotherapy today but did not make it because he was not feeling good and canceled his ride. He states he has had 2 episodes of vomiting and one episode of diarrhea today. He had tried taking Zofran pill at home but it had not helped with his nausea. He does not have the dissolving Zofran he has the actual pill form. He denies having any fever or chills. He denies any abdominal pain, pain with urination, black or tarry stools, blood in his urine, stool, vomit. Timing/Duration: 4-6 Hours Severity/Quality: Mild Modifying Factors: Worsens With Eating, Worsens With Movement Associated Symptoms: No Back Pain, No Chest Pain, No Diaphoresis, No Fever/Chills; Fatigue; No Headache, No Heartburn; Nausea/Vomiting; No Rash, No Shortness of Air, No Swelling/Mass in Abdomen, No Syncope; Weakness Allergies and Home Medications Allergies Coded Allergies: No Known Drug Allergies (Unverified , 10/29/21) Patient Home Medication List Home Medication List Reviewed: Yes Cisplatin (CISplatin) 50 Mg Vial, 37 MG IV UD, (Reported) Entered as Reported by: ALBERT GOLDSTEIN on 06/25/22 1428 Etoposide Phosphate (Etopophos) 100 Mg Vial, 185 MG IV UD, (Reported) Entered as Reported by: ALBERT GOLDSTEIN on 06/25/22 1428 Levofloxacin (Levofloxacin) 750 Mg Tablet, 750 MG PO DAILY Prescribed by: LU KOO on 06/26/22 1106 Magnesium Gluconate (Magnesium Gluconate) 27.5 Mg Magnesium (500 Mg) Tablet, 500 MG PO HS, (Reported) Entered as Reported by: ALBERT GOLDSTEIN on 06/25/22 1430 Ondansetron (Ondansetron Odt) 8 Mg Tab.rapdis, 8 MG SL Q8H PRN for NAUSEA/VOMITING Prescribed by: LORETA KAUR on 08/07/22 1412 Ondansetron HCl (Ondansetron HCl) 8 Mg Tablet, 8 MG PO Q8H PRN for NAUSEA/VOMITING-1ST LINE, (Reported) Entered as Reported by: ALBERT GOLDSTEIN on 06/25/22 1428 Review of Systems Review of Systems Constitutional: No chills; fever EENTM: No Symptoms Reported Respiratory: No Symptoms Reported Cardiovascular: No Symptoms Reported Gastrointestinal: See HPI Genitourinary: See HPI Musculoskeletal: no symptoms reported Skin: no symptoms reported Psychiatric/Neurological: Anxiety Past Hgtklem-Uepgjt-Nsusap Hx Patient Social History Tobacco Use?: No Use of E-Cig and/or Vaping dev: No Substance use?: No Immunizations Up To Date First/Initial COVID19 Vaccinat: denies Second COVID19 Vaccination Dave: denies Third COVID19 Vaccination Date: denies Past Medical History Surgery/Hospitalization HX: Metastatic Testicular cancer, Colon Cancer, Right Orchiectomy 03/2022,Portacath placement May 2022 Surgeries: Yes Testicular Colon, Testicular Physical Exam Vital Signs Vital Signs - First Documented 08/07/22 13:55 Temp 36.3 Pulse 89 Resp 16 B/P (MAP) 102/61 (75) Pulse Ox 97 O2 Delivery Room Air Capillary Refill : Height/Weight/BMI Height: '" Weight: lbs. oz. kg; 28.67 BMI Method: General Appearance: no apparent distress, other (Anxious) HEENT: PERRL/EOMI, pharynx normal Neck: non-tender, full range of motion, supple, normal inspection Respiratory: chest non-tender, lungs clear, normal breath sounds, no respiratory distress, no accessory muscle use Cardiovascular: normal peripheral pulses, regular rate, rhythm Gastrointestinal: normal bowel sounds, non tender, soft, no pulsatile mass Extremities: normal range of motion, non-tender, normal capillary refill Neurologic/Psychiatric: alert, oriented x 3 Skin: normal color, warm/dry Progress/Results/Core Measures Results/Orders Lab Results Laboratory Tests Test 08/07/22 14:03 Range/Units White Blood Count 10.2 4.3-11.0 10^3/uL Red Blood Count 3.39 L 4.30-5.52 10^6/uL Hemoglobin 9.6 L 13.3-17.7 g/dL Hematocrit 29 L 40-54 % Mean Corpuscular Volume 86 80-99 fL Mean Corpuscular Hemoglobin 28 25-34 pg Mean Corpuscular Hemoglobin Concent 33 32-36 g/dL Red Cell Distribution Width 17.0 H 10.0-14.5 % Platelet Count 388 130-400 10^3/uL Mean Platelet Volume 8.5 L 9.0-12.2 fL Immature Granulocyte % (Auto) 1 % Neutrophils (%) (Auto) 80 H 42-75 % Lymphocytes (%) (Auto) 16 12-44 % Monocytes (%) (Auto) 2 0-12 % Eosinophils (%) (Auto) 0 0-10 % Basophils (%) (Auto) 0 0-10 % Neutrophils # (Auto) 8.2 H 1.8-7.8 10^3/uL Lymphocytes # (Auto) 1.7 1.0-4.0 10^3/uL Monocytes # (Auto) 0.2 0.0-1.0 10^3/uL Eosinophils # (Auto) 0.0 0.0-0.3 10^3/uL Basophils # (Auto) 0.0 0.0-0.1 10^3/uL Immature Granulocyte # (Auto) 0.1 0.0-0.1 10^3/uL Sodium Level 141 135-145 MMOL/L Potassium Level 3.9 3.6-5.0 MMOL/L Chloride Level 103 98-107 MMOL/L Carbon Dioxide Level 26 21-32 MMOL/L Anion Gap 12 5-14 MMOL/L Blood Urea Nitrogen 18 7-18 MG/DL Creatinine 0.93 0.60-1.30 MG/DL Estimat Glomerular Filtration Rate 109 BUN/Creatinine Ratio 19 Glucose Level 118 H 70-105 MG/DL Calcium Level 8.7 8.5-10.1 MG/DL Corrected Calcium 9.0 8.5-10.1 MG/DL Total Bilirubin 0.2 0.1-1.0 MG/DL Aspartate Amino Transf (AST/SGOT) 13 5-34 U/L Alanine Aminotransferase (ALT/SGPT) 22 0-55 U/L Alkaline Phosphatase 87 40-136 U/L Total Protein 5.8 L 6.4-8.2 GM/DL Albumin 3.6 3.2-4.5 GM/DL Lipase 19 8-78 U/L LORETA Benjamin MD Comprehensive Metabolic Panel (08/07/22 14:02) Lipase (08/07/22 14:02) Ed Iv/Invasive Line Start (08/07/22 14:02) Cbc With Automated Diff (08/07/22 14:02) Ondansetron Injection (Zofran Injectio (08/07/22 14:02) Ns Iv 1000 Ml (Sodium Chloride 0.9%) (08/07/22 14:02) Vital Signs/I&O 08/07/22 13:55 Temp 36.3 Pulse 89 Resp 16 B/P (MAP) 102/61 (75) Pulse Ox 97 O2 Delivery Room Air Progress Progress Note #1: Progress Note Potential diagnosis of nausea and vomiting due to chemotherapy, gastroenteritis, gastritis, food poisoning, medication reaction. Obtain peripheral IV access and check basic lab work. He had blood work done on the that showed mild elevation of his white blood cell count and his comprehensive metabolic profile had not shown any acute electrolyte ab normalities. He states that he threw up when they walked into urgent care to be seen this afternoon. They decided to come to the emergency department to be evaluated for his nausea, vomiting, diarrhea. Will administer 1 L normal saline IV fluid for hydration, Zofran 4 mg IV for nausea and vomiting. Obtain complete blood count, comprehensive metabolic profile, lipase and urinalysis to look for acute lab abnormality that might be contributing to his symptoms. Progress Note #2: Progress Note Complete blood count did not show any acute change from his baseline. His white blood cell count was 10.2 and his hemoglobin was stable at 9.6. His comprehensive metabolic profile did not show any acute electrolyte abnormalities were renal or hepatic failure. Patient had urinated on arrival to the ED before obtaining a specimen. He states he was feeling better after getting the fluids and medicine here in the ED. He has had no vomiting here. We will discharge with dissolving Zofran tablets and recommendations for clear liquid diet for 24 hours and then advance to bland and regular food as tolerated. Check back with the clinic for continued concerns. Departure Impression Primary Impression: Nausea vomiting and diarrhea Additional Impressions: Chemotherapy induced nausea and vomiting Chemotherapy induced diarrhea Disposition: 01 HOME, SELF-CARE Condition: Improved Departure-Patient Inst. Decision time for Depature: 14:58 Referrals: SELF,ARLIN HANNAH (PCP/Family) Primary Care Physician Patient Instructions: Nausea and Vomiting, Adult ED, Diarrhea, Adult ED Add. Discharge Instructions: Try to keep sipping on fluids and electrolyte drinks to stay hydrated. Try taking the dissolving ondansetron or Zofran tablets to see if that helps more with your nausea and vomiting then the pills that you have to swallow. Check back with your regular provider as well as oncologist for continued concerns. All discharge instructions reviewed with patient and/or family. Voiced understanding. Scripts Ondansetron (Ondansetron Odt) 8 Mg Tab.rapdis 8 MG SL Q8H PRN for NAUSEA/VOMITING for 5 Days, #15 TAB 0 Refills Prov: LORETA KAUR MD 08/07/22 LORETA KAUR MD Aug 07, 2022 14:10
[2022-08-07] MEDS ORDERED: ONDA8TAB13 SL (14:12)
[2022-08-07 14:27] LABS: ALBUMIN 3.6 GM/DL (3.2-4.5); BILIRUBIN,TOTAL 0.2 MG/DL (0.1-1.0); CALCIUM 8.7 MG/DL (8.5-10.1); CREATININE SERUM 0.93 MG/DL (0.60-1.30); POTASSIUM 3.9 MMOL/L (3.6-5.0); TOTAL PROTEIN 5.8 GM/DL (6.4-8.2)
== END 2022-08-07 14:58 | disposition home or self-care (01) ==
LOC: EDUNIT# 13:52 → ER FS 13:53
DX: K52.1 Toxic gastroenteritis and colitis (principal); T45.1X5A Adverse effect of antineoplastic and immunosuppressive drugs, initial encounter; R11.2 Nausea with vomiting, unspecified; C62.90 Malignant neoplasm of unspecified testis, unspecified whether descended or undescended; Z28.310 Unvaccinated for COVID-19; Z98.890 Other specified postprocedural states
CPT/HCPCS: 36415; 80053; 83690; 85025

== ENCOUNTER 2022-08-10 20:55 | Emergency (ER) | payer OTHER, MEDICAID ==
[~2022-08-10] VITALS: Ht 162.5 cm; Wt 74.6 kg
[~2022-08-10 20:55] MED LIST changes: +ONDA8TAB13 SL
[2022-08-10 20:57] VITALS: BP 121/75
--- NOTE | 2022-08-10 21:10 | ED General ---
General Chief Complaint: General Problems/Pain Stated Complaint: RED SPOTS ON BACK OF HEAD Nursing Triage Note: Patients states that the patient had chemotherapy today. Patient come home and took a nap. When the patient woke up to go use the restroom, the noticed 6 red spots on his head. The red spots dissolved by the time they came to the ER. Patient has no current complaint. Source of Information: Patient, Family (1) Exam Limitations: No Limitations History of Present Illness Date Seen by Provider: Aug 10, 2022 Time Seen by Provider: 20:58 Initial Comments 37-year-old male patient with history of testicular cancer on current chemotherapy brought in by his because of red spots on his occipital scalp that resolved at arrival to ER. Patient stated that he had chemotherapy today and took a nap on the couch and then woke up to go to the bathroom she saw 6 red spot on the back of his head. Patient denied any injury or complaining of any pain on the affected area. The red area disappeared at arrival to ER. Patient denies fever and chills and headache and nausea and vomiting. Patient denies history of the same problem. Patient is very anxious and stated she called her mom and his mom and both of them recommended to come to ER because it could be result of cancer or chemotherapy. Allergies and Home Medications Allergies Coded Allergies: No Known Drug Allergies (Unverified , 10/29/21) Patient Home Medication List Home Medication List Reviewed: Yes Cisplatin (CISplatin) 50 Mg Vial, 37 MG IV UD, (Reported) Entered as Reported by: ALBERT GOLDSTEIN on 06/25/22 1428 Etoposide Phosphate (Etopophos) 100 Mg Vial, 185 MG IV UD, (Reported) Entered as Reported by: ALBERT GOLDSTEIN on 06/25/22 1428 Levofloxacin (Levofloxacin) 750 Mg Tablet, 750 MG PO DAILY Prescribed by: LU KOO on 06/26/22 1106 Magnesium Gluconate (Magnesium Gluconate) 27.5 Mg Magnesium (500 Mg) Tablet, 500 MG PO HS, (Reported) Entered as Reported by: ALBERT GOLDSTEIN on 06/25/22 1430 Ondansetron (Ondansetron Odt) 8 Mg Tab.rapdis, 8 MG SL Q8H PRN for NAUSEA/VOMITING Prescribed by: LORETA KAUR on 08/07/22 1412 Ondansetron HCl (Ondansetron HCl) 8 Mg Tablet, 8 MG PO Q8H PRN for NAUSEA/VOMITING-1ST LINE, (Reported) Entered as Reported by: ALBERT GOLDSTEIN on 06/25/22 1428 Review of Systems Review of Systems Constitutional: see HPI EENTM: see HPI Respiratory: see HPI Cardiovascular: see HPI Gastrointestinal: see HPI Genitourinary: see HPI Musculoskeletal: see HPI Skin: see HPI Psychiatric/Neurological: See HPI Hematologic/Lymphatic: See HPI Immunological/Allergic: see HPI All Other Systems Reviewed Negative Unless Noted: Yes Past Juothqm-Vcgzki-Yoxcxu Hx Patient Social History Tobacco Use?: No Substance use?: No Alcohol Use?: No Pt feels they are or have been: No Immunizations Up To Date First/Initial COVID19 Vaccinat: denies Second COVID19 Vaccination Dave: denies Third COVID19 Vaccination Date: denies Past Medical History Surgery/Hospitalization HX: Metastatic Testicular cancer, Colon Cancer, Right Orchiectomy 03/2022,Portacath placement May 2022 Surgeries: Yes Testicular Colon, Testicular Physical Exam Vital Signs Vital Signs - First Documented 08/10/22 20:57 Temp 37.0 Pulse 94 Resp 18 B/P (MAP) 121/75 (90) Pulse Ox 100 O2 Delivery Room Air Capillary Refill : Less Than 3 Seconds Height, Weight, BMI Height: '" Weight: lbs. oz. kg; 28.00 BMI Method: General Appearance: No Apparent Distress Eyes: Bilateral Eye Normal Inspection, Bilateral Eye PERRL, Bilateral Eye EOMI HEENT: PERRL/EOMI, Other (Generalized alopecia, no sign of injury or erythema to his scalp) Neck: Full Range of Motion Respiratory: Chest Non Tender, Lungs Clear, Normal Breath Sounds Cardiovascular: Regular Rate, Rhythm, No Edema Neurologic/Psychiatric: Alert, No Motor/Sensory Deficits Progress/Results/Core Measures Suspected Sepsis SIRS Temperature: Pulse: 94 Respiratory Rate: 18 Blood Pressure 121 /75 Mean: 90 Results/Orders Vital Signs/I&O 08/10/22 20:57 Temp 37.0 Pulse 94 Resp 18 B/P (MAP) 121/75 (90) Pulse Ox 100 O2 Delivery Room Air Capillary Refill : Less Than 3 Seconds Blood Pressure Mean: 90 Progress Note : Progress Note Patient with history of testicular cancer on chemotherapy brought in by his because of several red spots on his occipital scalp after taking nap on the couch. Patient did not have any abnormality on his scalp at arrival to ER. Most likely that erythematous area was the pressure effect of some hard stuff on the couch and he was lay on them and resolve after removing the pressure. Patient advised to follow-up with his oncologist as needed and she states she is going to call his oncologist tomorrow to find what was the reason of this problem. Departure Impression Primary Impression: Feared condition not demonstrated Additional Impression: Anxiety about health Disposition: 01 HOME, SELF-CARE Condition: Stable Departure-Patient Inst. Decision time for Depature: 21:09 Referrals: SELFARLIN MD (PCP/Family) Primary Care Physician Patient Instructions: Anxiety, Adult ED Add. Discharge Instructions: Follow-up with your oncologist as needed Return to ER as needed All discharge instructions reviewed with patient and/or family. Voiced understanding. PRESTON AMAYA MD Aug 10, 2022 21:10
== END 2022-08-10 21:12 | disposition home or self-care (01) ==
LOC: EDUNIT# 20:55 → ER FS 20:57
DX: Z71.1 Person with feared health complaint in whom no diagnosis is made (principal); F06.4 Anxiety disorder due to known physiological condition; C62.90 Malignant neoplasm of unspecified testis, unspecified whether descended or undescended; C78.5 Secondary malignant neoplasm of large intestine and rectum; Z28.310 Unvaccinated for COVID-19
CPT/HCPCS: 99281

== ENCOUNTER 2022-08-18 11:24 | Outpatient (RCR) | payer MEDICARE, MEDICAID ==
[2022-08-03 11:38] LABS: BASOPHILS # (AUTO) 0.1 10^3/uL (0.0-0.1); BASOPHILS % (AUTO) 0 % (0-10); EOSINOPHILS % (AUTO) 0 % (0-10); HEMATOCRIT 30 % (40-54); HEMOGLOBIN 9.7 g/dL (13.3-17.7); LYMPHOCYTES # (AUTO) 1.7 10^3/uL (1.0-4.0); LYMPHOCYTES % (AUTO) 12 % (12-44); MEAN CORPUSCULAR HEMOGLOBIN 29 pg (25-34); MEAN CORPUSCULAR HGB CONC 33 g/dL (32-36); MEAN CORPUSCULAR VOLUME 88 fL (80-99); MEAN PLATELET VOLUME 8.7 fL (9.0-12.2); MONOCYTES # (AUTO) 1.2 10^3/uL (0.0-1.0); MONOCYTES % (AUTO) 8 % (0-12); NEUTROPHILS % (AUTO) 74 % (42-75); PLATELET COUNT 304 10^3/uL (130-400); WHITE BLOOD COUNT 14.9 10^3/uL (4.3-11.0)
[2022-08-03 11:59] LABS: ALBUMIN 3.6 GM/DL (3.2-4.5); BILIRUBIN,TOTAL 0.2 MG/DL (0.1-1.0); CALCIUM 8.9 MG/DL (8.5-10.1); CREATININE SERUM 0.83 MG/DL (0.60-1.30); MAGNESIUM 2.1 MG/DL (1.6-2.4); POTASSIUM 3.8 MMOL/L (3.6-5.0); TOTAL PROTEIN 6.1 GM/DL (6.4-8.2)
[2022-08-03] MEDS: NS IV 1000 ML (CANCER CTR) IV SCH (12:11)
[2022-08-03] MEDS: FOSAPREPITANT (CANCER CENTER) 150 MG in NS (IVPB) CANCER CENTER ONLY 150 ML IV SCH (12:12)
[2022-08-03] MEDS: PALONOSETRON HCL 0.25 MG, dexAMETHasone INJECTION 20 MG in NS (IVPB) 50 ML IV SCH (12:30)
[2022-08-03] MEDS: CISPLATIN IV SCH (12:42)
[2022-08-03] MEDS: [UNRECOGNIZED DRUG - OTHER] IV SCH (12:42)
[2022-08-03] MEDS: MANNITOL IV SCH (12:42)
[2022-08-03] MEDS: MAGNESIUM SULFATE IV SCH (12:42)
[2022-08-03] MEDS: NORMAL SALINE IV SCH (13:45)
[2022-08-03] MEDS: ETOPOSIDE IV SCH (13:45)
[2022-08-04 11:15] VITALS: BP 109/66
[2022-08-04] MEDS: dexAMETHasone INJECTION 20 MG in NS (IVPB) 50 ML IV SCH (11:26)
[2022-08-04] MEDS: NS IV 1000 ML (CANCER CTR) IV SCH (11:26)
[2022-08-04] MEDS: MAGNESIUM SULFATE IV SCH (11:37)
[2022-08-04] MEDS: CISPLATIN IV SCH (11:37)
[2022-08-04] MEDS: [UNRECOGNIZED DRUG - OTHER] IV SCH (11:37)
[2022-08-04] MEDS: MANNITOL IV SCH (11:37)
[2022-08-04] MEDS: NORMAL SALINE IV SCH (12:41)
[2022-08-04] MEDS: ETOPOSIDE IV SCH (12:41)
[2022-08-05] MEDS: NS IV 1000 ML (CANCER CTR) IV SCH (10:51)
[2022-08-05] MEDS: PALONOSETRON HCL 0.25 MG, dexAMETHasone INJECTION 20 MG in NS (IVPB) 50 ML IV SCH (10:51)
[2022-08-05 10:55] VITALS: BP 107/65
[2022-08-05] MEDS: CISPLATIN IV SCH (11:08)
[2022-08-05] MEDS: [UNRECOGNIZED DRUG - OTHER] IV SCH (11:08)
[2022-08-05] MEDS: MAGNESIUM SULFATE IV SCH (11:08)
[2022-08-05] MEDS: MANNITOL IV SCH (11:08)
[2022-08-05] MEDS: NORMAL SALINE IV SCH (12:12)
[2022-08-05] MEDS: ETOPOSIDE IV SCH (12:12)
[2022-08-06 10:50] VITALS: BP 113/91
[2022-08-06] MEDS: NS IV 1000 ML (CANCER CTR) IV SCH (10:53)
[2022-08-06] MEDS: dexAMETHasone INJECTION 20 MG in NS (IVPB) 50 ML IV SCH (10:53)
[2022-08-06] MEDS: MANNITOL IV SCH (11:12)
[2022-08-06] MEDS: CISPLATIN IV SCH (11:12)
[2022-08-06] MEDS: [UNRECOGNIZED DRUG - OTHER] IV SCH (11:12)
[2022-08-06] MEDS: MAGNESIUM SULFATE IV SCH (11:12)
[2022-08-06] MEDS: ETOPOSIDE IV SCH (12:09)
[2022-08-06] MEDS: NORMAL SALINE IV SCH (12:09)
[2022-08-10 11:42] LABS: BASOPHILS % (AUTO) 0 % (0-10); EOSINOPHILS % (AUTO) 0 % (0-10); HEMATOCRIT 28 % (40-54); HEMOGLOBIN 9.6 g/dL (13.3-17.7); LYMPHOCYTES # (AUTO) 1.1 10^3/uL (1.0-4.0); LYMPHOCYTES % (AUTO) 14 % (12-44); MEAN CORPUSCULAR HEMOGLOBIN 29 pg (25-34); MEAN CORPUSCULAR HGB CONC 34 g/dL (32-36); MEAN CORPUSCULAR VOLUME 84 fL (80-99); MEAN PLATELET VOLUME 8.8 fL (9.0-12.2); MONOCYTES # (AUTO) 0.1 10^3/uL (0.0-1.0); MONOCYTES % (AUTO) 1 % (0-12); NEUTROPHILS # (AUTO) 6.8 10^3/uL (1.8-7.8); NEUTROPHILS % (AUTO) 83 % (42-75); PLATELET COUNT 219 10^3/uL (130-400); WHITE BLOOD COUNT 8.2 10^3/uL (4.3-11.0)
[2022-08-10 11:52] VITALS: BP 103/64
[2022-08-10 11:54] LABS: ALBUMIN 3.9 GM/DL (3.2-4.5); POTASSIUM 4.6 MMOL/L (3.6-5.0)
[2022-08-10 11:55] LABS: CALCIUM 8.9 MG/DL (8.5-10.1)
[2022-08-10 11:56] LABS: TOTAL PROTEIN 6.3 GM/DL (6.4-8.2)
[2022-08-10 11:58] LABS: BILIRUBIN,TOTAL 0.5 MG/DL (0.1-1.0)
[2022-08-10 12:00] LABS: CREATININE SERUM 0.76 MG/DL (0.60-1.30)
[2022-08-10] MEDS: NS IV 1000 ML (CANCER CTR) IV SCH (12:21)
[2022-08-10] MEDS: FOSAPREPITANT (CANCER CENTER) 150 MG in NS (IVPB) CANCER CENTER ONLY 150 ML IV SCH (12:22)
[2022-08-10] MEDS: PALONOSETRON HCL 0.25 MG, dexAMETHasone INJECTION 20 MG in NS (IVPB) 50 ML IV SCH (12:22)
[2022-08-10] MEDS: MAGNESIUM SULFATE IV SCH (12:49)
[2022-08-10] MEDS: [UNRECOGNIZED DRUG - OTHER] IV SCH (12:49)
[2022-08-10] MEDS: CISPLATIN IV SCH (12:49)
[2022-08-10] MEDS: MANNITOL IV SCH (12:49)
[2022-08-10] MEDS: ETOPOSIDE IV SCH (14:09)
[2022-08-10] MEDS: NORMAL SALINE IV SCH (14:09)
[~2022-08-18] VITALS: Ht 162.6 cm; Wt 74.3 kg
[~2022-08-18 11:24] MED LIST changes: +ALTEPLASE 2 MG (CATHFLO) IV ONE; +HEParin (CENTRAL IV FLUSH) 500 UNIT/5 ML SYR IV PRN; +PEGFILGRASTIM-BMEZ 6 MG/0.6 ML (ZIEXTENZO) SQ SCH
[2022-08-18 11:40] LABS: BASOPHILS # (AUTO) 0.1 10^3/uL (0.0-0.1); BASOPHILS % (AUTO) 0 % (0-10); EOSINOPHILS % (AUTO) 0 % (0-10); HEMATOCRIT 30 % (40-54); LYMPHOCYTES # (AUTO) 2.2 10^3/uL (1.0-4.0); LYMPHOCYTES % (AUTO) 9 % (12-44); MEAN CORPUSCULAR HEMOGLOBIN 29 pg (25-34); MEAN CORPUSCULAR HGB CONC 30 g/dL (32-36); MEAN CORPUSCULAR VOLUME 95 fL (80-99); MEAN PLATELET VOLUME 9.8 fL (9.0-12.2); MONOCYTES # (AUTO) 2.8 10^3/uL (0.0-1.0); MONOCYTES % (AUTO) 12 % (0-12); NEUTROPHILS # (AUTO) 14.1 10^3/uL (1.8-7.8); NEUTROPHILS % (AUTO) 60 % (42-75); PLATELET COUNT 165 10^3/uL (130-400); WHITE BLOOD COUNT 23.5 10^3/uL (4.3-11.0)
[2022-08-18 11:59] LABS: ALBUMIN 3.7 GM/DL (3.2-4.5); BILIRUBIN,TOTAL 0.2 MG/DL (0.1-1.0); CALCIUM 9.2 MG/DL (8.5-10.1); CREATININE SERUM 0.9 MG/DL (0.60-1.30); POTASSIUM 4.1 MMOL/L (3.6-5.0); TOTAL PROTEIN 6.1 GM/DL (6.4-8.2)
[2022-08-19] MEDS ORDERED: [UNRECOGNIZED DRUG - OTHER] IV SCH (13:30)
[2022-08-19] MEDS ORDERED: ETOPOSIDE IV SCH (13:30)
[2022-08-19] MEDS ORDERED: MAGNESIUM SULFATE IV SCH (13:30)
[2022-08-19] MEDS ORDERED: NORMAL SALINE IV SCH (13:30)
[2022-08-19] MEDS ORDERED: MANNITOL IV SCH (13:30)
[2022-08-19] MEDS ORDERED: CISPLATIN IV SCH (13:30)
== END 2022-08-21 | disposition home or self-care (01) ==
LOC: ONC 11:24
PROVIDERS: ATTEND Internal Medicine Hematology & Oncology
DX: Z51.11 Encounter for antineoplastic chemotherapy (principal); Z45.2 Encounter for adjustment and management of vascular access device; C62.90 Malignant neoplasm of unspecified testis, unspecified whether descended or undescended
CPT/HCPCS: 36591; 36593; 80053; 82105; 83615; 83735; 84702; 85025; 96360; 96361; 96367; 96372; 96375; 96413; 96417; 96523

== ENCOUNTER 2022-09-08 20:57 | Emergency (ER) | payer MEDICARE, MEDICAID ==
[~2022-09-08 20:57] MED LIST changes: -ALTEPLASE 2 MG (CATHFLO) IV ONE; -HEParin (CENTRAL IV FLUSH) 500 UNIT/5 ML SYR IV PRN; -PEGFILGRASTIM-BMEZ 6 MG/0.6 ML (ZIEXTENZO) SQ SCH
--- NOTE | 2022-09-08 21:10 | ED GI ---
General Chief Complaint: Abdominal/GI Problems Stated Complaint: N/V/D Source of Information: Patient, Family () Exam Limitations: No Limitations History of Present Illness Date Seen by Provider: Sep 08, 2022 Time Seen by Provider: 20:57 Initial Comments 37-year-old male presents to the emergency department today for nausea vomiting and diarrhea. Symptoms have been present for about the past 5 days. Is getting chemotherapy for testicular cancer with last chemotherapy treatment being 08/28. He does frequently have nausea and vomiting after chemo. He was using dissolving Zofran without much relief. No fevers or chills. No chest pain. No abdominal pain just diffuse cramping. All other systems reviewed and negative except documented per HPI. Voice recognition software was used to help create this chart Allergies and Home Medications Allergies Coded Allergies: No Known Drug Allergies (Unverified , 10/29/21) Patient Home Medication List Home Medication List Reviewed: Yes Cisplatin (CISplatin) 50 Mg Vial, 37 MG IV UD, (Reported) Entered as Reported by: ALBERT GOLDSTEIN on 06/25/22 1428 Etoposide Phosphate (Etopophos) 100 Mg Vial, 185 MG IV UD, (Reported) Entered as Reported by: ALBERT GOLDSTEIN on 06/25/22 1428 Levofloxacin (Levofloxacin) 750 Mg Tablet, 750 MG PO DAILY Prescribed by: LU KOO on 06/26/22 1106 Magnesium Gluconate (Magnesium Gluconate) 27.5 Mg Magnesium (500 Mg) Tablet, 500 MG PO HS, (Reported) Entered as Reported by: ALBERT GOLDSTEIN on 06/25/22 1430 Ondansetron (Ondansetron Odt) 8 Mg Tab.rapdis, 8 MG SL Q8H PRN for NAUSEA/VOMITING Prescribed by: LORETA KAUR on 08/07/22 1412 Ondansetron HCl (Ondansetron HCl) 8 Mg Tablet, 8 MG PO Q8H PRN for NAUSEA/VOMITING-1ST LINE, (Reported) Entered as Reported by: ALBERT GOLDSTEIN on 06/25/22 1428 Review of Systems Review of Systems Constitutional: see HPI Past Nrqmnuw-Vxcxpo-Qbdncv Hx Patient Social History Tobacco Use?: No Use of E-Cig and/or Vaping dev: No Substance use?: No Alcohol Use?: No Pt feels they are or have been: No Immunizations Up To Date First/Initial COVID19 Vaccinat: denies Second COVID19 Vaccination Dave: denies Third COVID19 Vaccination Date: denies Past Medical History Surgery/Hospitalization HX: Metastatic Testicular cancer, Colon Cancer, Right Orchiectomy 03/2022,Portacath placement May 2022 Surgeries: Yes Testicular Colon, Testicular Physical Exam Vital Signs Vital Signs - First Documented 09/08/22 21:01 Pulse 110 Resp 16 B/P (MAP) 144/79 (100) Pulse Ox 99 O2 Delivery Room Air Capillary Refill : Height/Weight/BMI Height: '" Weight: lbs. oz. kg; 63.46 BMI Method: General Appearance: WD/WN, no apparent distress HEENT: normal ENT inspection, pharynx normal, other (Moist mucous membranes) Neck: non-tender, supple Respiratory: chest non-tender, lungs clear, normal breath sounds, no respiratory distress, no accessory muscle use Cardiovascular: regular rate, rhythm, no murmur Gastrointestinal: non tender, soft, no organomegaly, other (Hyperactive bowel sounds) Extremities: non-tender, normal inspection Neurologic/Psychiatric: alert, normal mood/affect, oriented x 3 Skin: normal color, warm/dry Progress/Results/Core Measures Results/Orders My Orders Orders - AZAR KING DO Promethazine Injection (Phenergan Injec (09/08/22 21:15) Medications Given in ED Current Medications Medications Dose Ordered Sig/Elizabeth Route Start Time Stop Time Status Last Admin Dose Admin Promethazine HCl 25 mg ONCE ONCE IM 09/08/22 21:15 09/08/22 21:16 DC 09/08/22 21:11 25 MG Vital Signs/I&O 09/08/22 21:01 Pulse 110 Resp 16 B/P (MAP) 144/79 (100) Pulse Ox 99 O2 Delivery Room Air Departure Communication (Admissions) Patient is hemodynamically stable, nontoxic. He has normal vital signs. This is likely nausea and vomiting associated with chemotherapy. I gave him some IM Phenergan which helped with his symptoms. He is drink a whole glass of water here and had no vomiting after about 30 to 45 minutes. We discharged home with p.o. and rectal Phenergan prescriptions. He will continue his Zofran at home as well. Impression Primary Impression: Nausea and vomiting Qualified Codes: R11.2 - Nausea with vomiting, unspecified Disposition: HOME, SELF-CARE Condition: Stable Departure-Patient Inst. Referrals: SELF,ARLIN HANNAH (PCP/Family) Primary Care Physician Patient Instructions: Nausea and vomiting with cancer treatment Add. Discharge Instructions: Continue to use the Zofran as needed by dissolving it under your tongue. If this does not work for your nausea use the promethazine tablet. If you are unable to keep this down I have provided you with rectal suppositories which you may use. Increase your fluids at home but taking small sips of fluids throughout the day every 15 to 20 minutes. Do not drink large volumes of fluid at this time as this is likely to increase your nausea and vomiting. Follow-up with your primary doctor and cancer doctors for further evaluation. Return to the emergency department for any severe concerns. All discharge instructions reviewed with patient and/or family. Voiced francisco javier monreal. Scripts Promethazine HCl (Promethazine Suppository) 25 Mg Supp.rect 25 MG RC TID for Nausea for 10 Days, #30 SUPP.RECT Prov: AZAR KING DO 09/08/22 Promethazine HCl (Promethazine Tablet) 25 Mg Tablet 25 MG PO Q6H PRN for NAUSEA/VOMITING for 10 Days, #40 TAB Prov: AZAR KING DO 09/08/22 AZAR KING DO Sep 08, 2022 21:10
[2022-09-08] MEDS ORDERED: PROMETHAZINE INJ 25 MG/ML (PHENERGAN) AMP IM ONE (21:15)
[2022-09-08] MEDS ORDERED: PROM25TA14 PO (21:34)
[2022-09-08] MEDS ORDERED: PROM25SU44 RC (21:34)
[2022-09-08 21:37] VITALS: BP 144/79
[2022-09-08] MEDS ORDERED: RX-PHENERGAN 25 MG SUPP PPK#3 PR ONE (21:45)
== END 2022-09-08 21:38 | disposition home or self-care (01) ==
LOC: EDUNIT# 20:57 → ER FS 20:59
DX: R11.2 Nausea with vomiting, unspecified (principal); C62.90 Malignant neoplasm of unspecified testis, unspecified whether descended or undescended; Z28.310 Unvaccinated for COVID-19
CPT/HCPCS: 99284

== ENCOUNTER → 2022-09-09 | Outpatient (CLI) | payer MEDICARE, MEDICAID ==
[~2022-09-09] MED LIST changes: +HOLD METFORMIN - RECEIVED CONTRAST 20 ML VIAL IV SCH; +IOHEXOL 350 MG/ML 100 ML (OMNIPAQUE 350) VIAL IV ONE; +NS 100 ML (IVPB) BAG IV ONE; +PROM25SU44 RC; +PROM25TA14 PO
--- NOTE | 2022-09-09 13:19 | Diagnostic Imaging Report ---
PROCEDURE: CT chest, abdomen, and pelvis with contrast. TECHNIQUE: Multiple contiguous axial images were obtained through the chest, abdomen, and pelvis after the administration of intravenous contrast. Auto Exposure Controls were utilized during the CT exam to meet ALARA standards for radiation dose reduction. 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 No prior studies are available for comparison. CT CHEST: A right chest wall port has the tip entering the right atrium. No axillary lymphadenopathy is detected. No mediastinal and hilar lymphadenopathy is identified. No pericardial or pleural fluid is detected. Parenchymal evaluation does show some minimal patchy airspace infiltrate in the lingula. No discrete mass is identified. There is a 3 mm micronodule nodule in the left lower lobe. There does appear to be some fluid throughout the esophagus, perhaps owing to reflux. CT abdomen and pelvis: There liver and gallbladder are unremarkable. There is no biliary ductal dilatation. Pancreas and spleen are unremarkable. No adrenal mass is detected. Kidneys are unremarkable. There is a large mixed solid and cystic mass in the central abdomen commencing just posterior to the pancreatic body and medial to the pancreatic head and uncinate within the central retroperitoneum. This measures approximately 12.3 cm cephalocaudal by 8.7 cm AP by 13.5 cm transverse. This abuts the anterior surface of the abdominal aorta as well as anterior portion of the IVC. There are some smaller nodes in the left para-aortic location. Aorta is nonaneurysmal. No iliac or inguinal lymphadenopathy is detected. Bowel loops are normal caliber. There is no ascites. Bladder and prostate are unremarkable. IMPRESSION: 1. Large, mixed solid cystic mass in the central retroperitoneum, suggestive of metastatic disease. 2. No thoracic lymphadenopathy is identified. There is some minimal patchy infiltrate in the lingula and pulmonary micronodule in the left lower lobe. Continued follow-up would be recommended. Dictated by: Dictated on workstation # [id number]
== END ==
LOC: RAD 11:52
PROVIDERS: ATTEND Internal Medicine Hematology & Oncology
DX: C62.90 Malignant neoplasm of unspecified testis, unspecified whether descended or undescended (principal); K68.9 Other disorders of retroperitoneum; R91.1 Solitary pulmonary nodule
CPT/HCPCS: 36591; 71260; 74177

== ENCOUNTER 2022-09-10 07:37 | Outpatient (RCR) | payer MEDICARE, MEDICAID ==
[2022-08-24 11:47] LABS: BASOPHILS # (AUTO) 0.1 10^3/uL (0.0-0.1); BASOPHILS % (AUTO) 0 % (0-10); EOSINOPHILS # (AUTO) 0.1 10^3/uL (0.0-0.3); EOSINOPHILS % (AUTO) 1 % (0-10); HEMATOCRIT 31 % (40-54); HEMOGLOBIN 9.7 g/dL (13.3-17.7); LYMPHOCYTES # (AUTO) 1.5 10^3/uL (1.0-4.0); LYMPHOCYTES % (AUTO) 8 % (12-44); MEAN CORPUSCULAR HEMOGLOBIN 29 pg (25-34); MEAN CORPUSCULAR HGB CONC 31 g/dL (32-36); MEAN CORPUSCULAR VOLUME 92 fL (80-99); MEAN PLATELET VOLUME 8.8 fL (9.0-12.2); MONOCYTES # (AUTO) 1.2 10^3/uL (0.0-1.0); MONOCYTES % (AUTO) 6 % (0-12); NEUTROPHILS # (AUTO) 15.4 10^3/uL (1.8-7.8); NEUTROPHILS % (AUTO) 82 % (42-75); PLATELET COUNT 390 10^3/uL (130-400); WHITE BLOOD COUNT 18.8 10^3/uL (4.3-11.0)
[2022-08-24 12:06] LABS: ALBUMIN 3.8 GM/DL (3.2-4.5); BILIRUBIN,TOTAL 0.2 MG/DL (0.1-1.0); CALCIUM 9.1 MG/DL (8.5-10.1); CREATININE SERUM 0.94 MG/DL (0.60-1.30); POTASSIUM 3.9 MMOL/L (3.6-5.0); TOTAL PROTEIN 6.5 GM/DL (6.4-8.2)
[2022-08-24 12:20] VITALS: BP 118/78
[2022-08-24] MEDS: NS IV 1000 ML (CANCER CTR) IV SCH (12:28)
[2022-08-24] MEDS: FOSAPREPITANT (CANCER CENTER) 150 MG in NS (IVPB) CANCER CENTER ONLY 150 ML IV SCH (12:29)
[2022-08-24] MEDS: DEXAMETHASONE IV SCH (12:49)
[2022-08-24] MEDS: PALONOSETRON HCL IV SCH (12:49)
[2022-08-24] MEDS: NS IV SCH (12:49)
[2022-08-24] MEDS: MAGNESIUM SULFATE IV SCH (13:05)
[2022-08-24] MEDS: MANNITOL IV SCH (13:05)
[2022-08-24] MEDS: [UNRECOGNIZED DRUG - OTHER] IV SCH (13:05)
[2022-08-24] MEDS: CISPLATIN IV SCH (13:05)
[2022-08-24] MEDS: ETOPOSIDE IV SCH (14:02)
[2022-08-24] MEDS: NORMAL SALINE IV SCH (14:02)
[2022-08-26] MEDS: NS IV 1000 ML (CANCER CTR) IV SCH (11:58)
[2022-08-26] MEDS: PALONOSETRON HCL IV SCH (11:58)
[2022-08-26] MEDS: DEXAMETHASONE IV SCH (11:58)
[2022-08-26] MEDS: NS IV SCH (11:58)
[2022-08-26 12:00] VITALS: BP 118/75
[2022-08-26] MEDS: CISPLATIN IV SCH (12:12)
[2022-08-26] MEDS: [UNRECOGNIZED DRUG - OTHER] IV SCH (12:12)
[2022-08-26] MEDS: MAGNESIUM SULFATE IV SCH (12:12)
[2022-08-26] MEDS: MANNITOL IV SCH (12:12)
[2022-08-26] MEDS: ETOPOSIDE IV SCH (13:16)
[2022-08-26] MEDS: NORMAL SALINE IV SCH (13:16)
[2022-08-27 11:05] VITALS: BP 117/76
[2022-08-27] MEDS: NS IV 1000 ML (CANCER CTR) IV SCH (11:24)
[2022-08-27] MEDS: MAGNESIUM SULFATE IV SCH (11:37)
[2022-08-27] MEDS: [UNRECOGNIZED DRUG - OTHER] IV SCH (11:37)
[2022-08-27] MEDS: CISPLATIN IV SCH (11:37)
[2022-08-27] MEDS: MANNITOL IV SCH (11:37)
[2022-08-27] MEDS: NORMAL SALINE IV SCH (12:35)
[2022-08-27] MEDS: ETOPOSIDE IV SCH (12:35)
[2022-08-28] MEDS: FOSAPREPITANT (CANCER CENTER) 150 MG in NS (IVPB) CANCER CENTER ONLY 150 ML IV SCH (10:58)
[2022-08-28] MEDS: NS IV 1000 ML (CANCER CTR) IV SCH (10:58)
[2022-08-28] MEDS: DEXAMETHASONE IV SCH (11:02)
[2022-08-28] MEDS: NS IV SCH (11:02)
[2022-08-28] MEDS: PALONOSETRON HCL IV SCH (11:02)
[2022-08-28 11:03] VITALS: BP 117/69
[2022-08-28] MEDS: MAGNESIUM SULFATE IV SCH (11:33)
[2022-08-28] MEDS: CISPLATIN IV SCH (11:33)
[2022-08-28] MEDS: MANNITOL IV SCH (11:33)
[2022-08-28] MEDS: [UNRECOGNIZED DRUG - OTHER] IV SCH (11:33)
[2022-08-28] MEDS: NORMAL SALINE IV SCH (12:42)
[2022-08-28] MEDS: ETOPOSIDE IV SCH (12:42)
[2022-09-01 11:18] LABS: BASOPHILS # (AUTO) 0.2 10^3/uL (0.0-0.1); BASOPHILS % (AUTO) 0 % (0-10); EOSINOPHILS % (AUTO) 0 % (0-10); HEMATOCRIT 25 % (40-54); HEMOGLOBIN 8.1 g/dL (13.3-17.7); LYMPHOCYTES # (AUTO) 0.9 10^3/uL (1.0-4.0); LYMPHOCYTES % (AUTO) 2 % (12-44); MEAN CORPUSCULAR HEMOGLOBIN 30 pg (25-34); MEAN CORPUSCULAR HGB CONC 32 g/dL (32-36); MEAN CORPUSCULAR VOLUME 91 fL (80-99); MEAN PLATELET VOLUME 8.7 fL (9.0-12.2); MONOCYTES # (AUTO) 0.2 10^3/uL (0.0-1.0); MONOCYTES % (AUTO) 0 % (0-12); NEUTROPHILS # (AUTO) 40.3 10^3/uL (1.8-7.8); NEUTROPHILS % (AUTO) 87 % (42-75); PLATELET COUNT 184 10^3/uL (130-400)
[2022-09-01 11:22] LABS: WHITE BLOOD COUNT 46.4 10^3/uL (4.3-11.0)
[2022-09-01 11:34] LABS: ALANINE AMINOTRANSFERASE 14 U/L (0-55); ALBUMIN 3.5 GM/DL (3.2-4.5); ALKALINE PHOSPHATASE 69 U/L (40-136); BILIRUBIN,TOTAL 0.4 MG/DL (0.1-1.0); BUN/CREATININE RATIO 17; CALCIUM 8.7 MG/DL (8.5-10.1); CARBON DIOXIDE 26 MMOL/L (21-32); CHLORIDE 99 MMOL/L (98-107); CREATININE SERUM 0.77 MG/DL (0.60-1.30); GFR ESTIMATED 119; GLUCOSE 111 MG/DL (70-105); POTASSIUM 4.1 MMOL/L (3.6-5.0); SODIUM 132 MMOL/L (135-145); TOTAL PROTEIN 5.6 GM/DL (6.4-8.2)
[2022-09-09 12:52] LABS: EOSINOPHILS % (AUTO) 1 % (0-10); LYMPHOCYTES # (AUTO) 0.8 10^3/uL (1.0-4.0)
[2022-09-09 12:54] LABS: BASOPHILS % (AUTO) 0 % (0-10); HEMATOCRIT 22 % (40-54); LYMPHOCYTES % (AUTO) 17 % (12-44); MEAN CORPUSCULAR HEMOGLOBIN 28 pg (25-34); MEAN CORPUSCULAR HGB CONC 32 g/dL (32-36); MEAN CORPUSCULAR VOLUME 88 fL (80-99); MEAN PLATELET VOLUME 10.4 fL (9.0-12.2); MONOCYTES # (AUTO) 0.6 10^3/uL (0.0-1.0); MONOCYTES % (AUTO) 13 % (0-12); NEUTROPHILS # (AUTO) 3.2 10^3/uL (1.8-7.8); NEUTROPHILS % (AUTO) 66 % (42-75); PLATELET COUNT 128 10^3/uL (130-400); WHITE BLOOD COUNT 4.9 10^3/uL (4.3-11.0)
[2022-09-09 12:56] LABS: HEMOGLOBIN 6.8 g/dL (13.3-17.7)
[2022-09-09 13:12] LABS: ALBUMIN 3.1 GM/DL (3.2-4.5); BILIRUBIN,TOTAL 0.4 MG/DL (0.1-1.0); CALCIUM 8.4 MG/DL (8.5-10.1); CREATININE SERUM 0.85 MG/DL (0.60-1.30); POTASSIUM 3.1 MMOL/L (3.6-5.0); TOTAL PROTEIN 5.5 GM/DL (6.4-8.2)
[~2022-09-10] VITALS: Ht 162.6 cm; Wt 167.8 kg
[~2022-09-10 07:37] MED LIST changes: +HEParin (CENTRAL IV FLUSH) 500 UNIT/5 ML SYR IV PRN; -HOLD METFORMIN - RECEIVED CONTRAST 20 ML VIAL IV SCH; -IOHEXOL 350 MG/ML 100 ML (OMNIPAQUE 350) VIAL IV ONE; -NS 100 ML (IVPB) BAG IV ONE; +PEGFILGRASTIM JMDB 6 MG/0.6 ML SQ SCH; +PEGFILGRASTIM-BMEZ 6 MG/0.6 ML (ZIEXTENZO) SQ SCH; +dexAMETHasone INJECTION 20 MG in NS (IVPB) 50 ML 50 ML IV SCH
[2022-09-10 11:11] VITALS: BP 109/65
[2022-09-10 11:26] VITALS: BP 109/63
[2022-09-10 13:15] VITALS: BP 113/73
[2022-09-10] MEDS ORDERED: NS IV 500 ML 500 ML IV ONE (13:36)
[2022-09-11] MEDS ORDERED: CIPR500T5 PO (19:30)
[2022-09-14] MEDS ORDERED: PROM25TA14 PO (11:18)
[2022-09-16] MEDS ORDERED: POTA-169 PO (11:37)
== END 2022-09-21 | disposition home or self-care (01) ==
LOC: ONC 07:37
PROVIDERS: ATTEND Internal Medicine Hematology & Oncology
DX: Z51.11 Encounter for antineoplastic chemotherapy (principal); Z45.2 Encounter for adjustment and management of vascular access device; C62.90 Malignant neoplasm of unspecified testis, unspecified whether descended or undescended
CPT/HCPCS: 36415; 36430; 36591; 80053; 82105; 83615; 84702; 85025; 86850; 86900; 86901; 86920; 96360; 96361; 96367; 96372; 96375; 96413; 96417

== ENCOUNTER 2022-09-13 16:26 | Inpatient (IN) | payer MEDICARE, MEDICAID ==
[~2022-09-13] VITALS: Ht 162.5 cm; Wt 71.3 kg
[~2022-09-13 16:26] MED LIST changes: +CIPR500T5 PO; -HEParin (CENTRAL IV FLUSH) 500 UNIT/5 ML SYR IV PRN; -PEGFILGRASTIM JMDB 6 MG/0.6 ML SQ SCH; -PEGFILGRASTIM-BMEZ 6 MG/0.6 ML (ZIEXTENZO) SQ SCH; -dexAMETHasone INJECTION 20 MG in NS (IVPB) 50 ML 50 ML IV SCH
[2022-09-13] MEDS ORDERED: METOCLOPRAMIDE INJ 10 MG/2 ML (REGLAN) IVP STA (16:37)
[2022-09-13] MEDS ORDERED: PANTOPRAZOLE 40 MG (PROTONIX) VIAL IV STA (16:37)
[2022-09-13] MEDS ORDERED: NS IV 1000 ML 1,000 ML IV STA (16:37)
[2022-09-13 16:47] LABS: BASOPHILS % (AUTO) 0 % (0-10); EOSINOPHILS # (AUTO) 0.1 10^3/uL (0.0-0.3); EOSINOPHILS % (AUTO) 0 % (0-10); HEMATOCRIT 27 % (40-54); HEMOGLOBIN 8.6 g/dL (13.3-17.7); LYMPHOCYTES # (AUTO) 2.3 10^3/uL (1.0-4.0); LYMPHOCYTES % (AUTO) 10 % (12-44); MEAN CORPUSCULAR HEMOGLOBIN 28 pg (25-34); MEAN CORPUSCULAR HGB CONC 32 g/dL (32-36); MEAN CORPUSCULAR VOLUME 88 fL (80-99); MEAN PLATELET VOLUME 9.7 fL (9.0-12.2); MONOCYTES # (AUTO) 2.3 10^3/uL (0.0-1.0); MONOCYTES % (AUTO) 10 % (0-12); NEUTROPHILS # (AUTO) 14.3 10^3/uL (1.8-7.8); NEUTROPHILS % (AUTO) 65 % (42-75); PLATELET COUNT 431 10^3/uL (130-400); WHITE BLOOD COUNT 22.1 10^3/uL (4.3-11.0)
--- NOTE | 2022-09-13 16:50 | ED GI ---
General Chief Complaint: Abdominal/GI Problems Stated Complaint: N/V/D Source of Information: Patient History of Present Illness Date Seen by Provider: Sep 13, 2022 Time Seen by Provider: 16:27 Initial Comments 37-year-old male presents to the emergency department by EMS from home. He was seen on Wednesday, September 11 for the same complaints. He continues to have vomiting and diarrhea despite having Zofran and Imodium. He denies having any blood in his diarrhea. He had some bacteria in his urine and concern for possible UTI so he was started on Cipro on Wednesday. He has been having diarrhea and vomiting since a day or 2 after his last chemotherapy treatment on August 28. He denies any abdominal pain. He has no burning or pain with urination. He reports having some lightheaded sensation and dizziness worse with changing positions. He had shown improvement while in the ED on Wednesday he was given fluids and had tolerated oral intake here in the ED without vomiting. He did not have any suleman rrhea while here on Wednesday to do any testing on so we will try to obtain that today. He states that he was unable to keep down water, Powerade, soup or anything at home. Timing/Duration: Getting Worse (over the last 2 weeks) Modifying Factors: Worsens With Eating Associated Symptoms: No Back Pain, No Chest Pain, No Diaphoresis, No Fever/Chills; Fatigue; No Headache, No Heartburn; Nausea/Vomiting; No Rash, No Shortness of Air, No Swelling/Mass in Abdomen, No Syncope; Weakness Allergies and Home Medications Allergies Coded Allergies: No Known Drug Allergies (Unverified , 10/29/21) Patient Home Medication List Home Medication List Reviewed: Yes Ciprofloxacin HCl (Ciprofloxacin HCl) 500 Mg Tablet, 500 MG PO BID Prescribed by: LORETA KAUR on 09/11/221929 Cisplatin (CISplatin) 50 Mg Vial, 37 MG IV UD, (Reported) Entered as Reported by: ALBERT GOLDSTEIN on 06/25/22 1428 Etoposide Phosphate (Etopophos) 100 Mg Vial, 185 MG IV UD, (Reported) Entered as Reported by: ALBERT GOLDSTEIN on 06/25/22 1428 Levofloxacin (Levofloxacin) 750 Mg Tablet, 750 MG PO DAILY Prescribed by: LU KOO on 06/26/22 1106 Magnesium Gluconate (Magnesium Gluconate) 27.5 Mg Magnesium (500 Mg) Tablet, 500 MG PO HS, (Reported) Entered as Reported by: ALBERT GOLDSTEIN on 06/25/22 1430 Ondansetron (Ondansetron Odt) 8 Mg Tab.rapdis, 8 MG SL Q8H PRN for NAUSEA/VOMITING Prescribed by: LORETA KAUR on 08/07/22 1412 Ondansetron HCl (Ondansetron HCl) 8 Mg Tablet, 8 MG PO Q8H PRN for NAUSEA/VOMITING-1ST LINE, (Reported) Entered as Reported by: ALBERT GOLDSTEIN on 06/25/22 1428 Promethazine HCl (Promethazine Tablet) 25 Mg Tablet, 25 MG PO Q6H PRN for NAUSEA/VOMITING Prescribed by: AZAR KING MD on 09/08/222133 Promethazine HCl (Promethazine Suppository) 25 Mg Supp.rect, 25 MG RC TID Prescribed by: AZAR KING MD on 09/08/222133 Review of Systems Review of Systems Constitutional: No chills; dizziness; No fever; malaise, weakness EENTM: No Symptoms Reported Respiratory: No Symptoms Reported Cardiovascular: No Symptoms Reported Gastrointestinal: See HPI Genitourinary: Denies Burning, Denies Hematuria, Denies Pain Musculoskeletal: no symptoms reported Skin: no symptoms reported Psychiatric/Neurological: No Symptoms Reported Past Ipidjxe-Ebhhyf-Iyvels Hx Patient Social History Tobacco Use?: No Use of E-Cig and/or Vaping dev: No Pt feels they are or have been: No Immunizations Up To Date First/Initial COVID19 Vaccinat: denies Second COVID19 Vaccination Dave: denies Third COVID19 Vaccination Date: denies Past Medical History Surgery/Hospitalization HX: Metastatic Testicular cancer, Colon Cancer, Right Orchiectomy 03/2022,Portacath placement May 2022 Surgeries: Yes Testicular Colon, Testicular Physical Exam Vital Signs Vital Signs - First Documented 09/13/22 16:30 Temp 36.4 Pulse 103 Resp 16 B/P (MAP) 126/78 (94) Pulse Ox 99 O2 Delivery Room Air Capillary Refill : Height/Weight/BMI Height: '" Weight: lbs. oz. kg; 63.46 BMI Method: General Appearance: no apparent distress, other (chronically ill appearing) HEENT: PERRL/EOMI; No pharynx normal (slightly dry mucous membranes) Respiratory: chest non-tender, lungs clear, normal breath sounds, no respiratory distress, no accessory muscle use Cardiovascular: normal peripheral pulses, regular rate, rhythm Gastrointestinal: non tender, soft, no pulsatile mass, abnormal bowel sounds (hyperactive); No distended, No guarding, No rebound, No tenderness Rectal: deferred Extremities: normal range of motion, non-tender, normal capillary refill Neurologic/Psychiatric: alert, oriented x 3 Skin: warm/dry, pallor Focused Exam Lactate Level 09/13/22 16:45: Lactic Acid Level 0.97 Lactic Acid Level Laboratory Tests Test 09/13/22 16:45 Lactic Acid Level 0.97 MMOL/L (0.50-2.00) Progress/Results/Core Measures Results/Orders Lab Results Laboratory Tests Test 09/13/22 16:35 09/13/22 16:45 Range/Units White Blood Count 22.1 H 4.3-11.0 10^3/uL Red Blood Count 3.04 L 4.30-5.52 10^6/uL Hemoglobin 8.6 L 13.3-17.7 g/dL Hematocrit 27 L 40-54 % Mean Corpuscular Volume 88 80-99 fL Mean Corpuscular Hemoglobin 28 25-34 pg Mean Corpuscular Hemoglobin Concent 32 32-36 g/dL Red Cell Distribution Width 18.3 H 10.0-14.5 % Platelet Count 431 H 130-400 10^3/uL Mean Platelet Volume 9.7 9.0-12.2 fL Immature Granulocyte % (Auto) 14 % Neutrophils (%) (Auto) 65 42-75 % Lymphocytes (%) (Auto) 10 L 12-44 % Monocytes (%) (Auto) 10 0-12 % Eosinophils (%) (Auto) 0 0-10 % Basophils (%) (Auto) 0 0-10 % Neutrophils # (Auto) 14.3 H 1.8-7.8 10^3/uL Lymphocytes # (Auto) 2.3 1.0-4.0 10^3/uL Monocytes # (Auto) 2.3 H 0.0-1.0 10^3/uL Eosinophils # (Auto) 0.1 0.0-0.3 10^3/uL Basophils # (Auto) 0.0 0.0-0.1 10^3/uL Immature Granulocyte # (Auto) 3.2 H 0.0-0.1 10^3/uL Sodium Level 132 L 135-145 MMOL/L Potassium Level 3.4 L 3.6-5.0 MMOL/L Chloride Level 87 L 98-107 MMOL/L Carbon Dioxide Level 33 H 21-32 MMOL/L Anion Gap 12 5-14 MMOL/L Blood Urea Nitrogen 14 7-18 MG/DL Creatinine 1.07 0.60-1.30 MG/DL Estimat Glomerular Filtration Rate 92 BUN/Creatinine Ratio 13 Glucose Level 104 70-105 MG/DL Calcium Level 8.8 8.5-10.1 MG/DL Corrected Calcium 9.4 8.5-10.1 MG/DL Total Bilirubin 0.3 0.1-1.0 MG/DL Aspartate Amino Transf (AST/SGOT) 32 5-34 U/L Alanine Aminotransferase (ALT/SGPT) 10 0-55 U/L Alkaline Phosphatase 122 40-136 U/L Total Protein 6.2 L 6.4-8.2 GM/DL Albumin 3.2 3.2-4.5 GM/DL Lipase 14 8-78 U/L Lactic Acid Level 0.97 0.50-2.00 MMOL/L My Orders Orders - LORETA KAUR MD Comprehensive Metabolic Panel (09/13/22 16:37) Lipase (09/13/22 16:37) Ua Culture If Indicated (09/13/22 16:37) Ed Iv/Invasive Line Start (09/13/22 16:37) Cbc With Automated Diff (09/13/22 16:37) Stool Culture (09/13/22 16:37) Fecal Wbc (09/13/22 16:37) C Difficile Ag + Toxin A/B. (09/13/22 16:37) Ns Iv 1000 Ml (Sodium Chloride 0.9%) (09/13/22 16:37) Pantoprazole Injection (Protonix Injecti (09/13/22 16:37) Metoclopramide Injection (Reglan Injecti (09/13/22 16:37) Blood Culture (09/13/22 16:42) Lactic Acid Analyzer (09/13/22 16:42) Ed Admission (Communication) (09/13/22 17:23) Vital Signs/I&O 09/13/22 16:30 Temp 36.4 Pulse 103 Resp 16 B/P (MAP) 126/78 (94) Pulse Ox 99 O2 Delivery Room Air Admisison Planning May Need Admission (Planning): 16:30 Progress Progress Note #1: Progress Note Potential diagnosis of Salmonella, Shigella, C. difficile, sepsis, gastroenteritis, chemotherapy side effect, electrolyte imbalance. Peripheral IV established by EMS prior to arrival. Normal saline IV fluids infusing on arrival. Patient did receive 4 mg of Zofran by the paramedics. He reports that was helping some but he still felt a little nauseated. Will try dose of Reglan 10 mg IV to see if it does better for his nausea and vomiting. Send labs for complete blood count, comprehensive metabolic profile, lipase, blood cultures, lactic acid, urinalysis, stool studies. On review of his electronic medical record he just had a CTA of his abdomen and pelvis done on September 09 that had shown a large retroperitoneal mass that appeared to be metastatic in nature from his testicular cancer. From discussion with the patient and his he is to follow-up next week with the cancer center about the CT scan and discuss further treatment options. As this is his second ED visit for the diarrhea and vomiting as well as it has been going on for 2 weeks he may be a candidate for admission for IV fluids and longer treatment than what can be done in the emergency department. Progress Note #2: Time: 17:20 Progress Note Labs show his white blood cell count has increased from 17,000-22,100 however he still has a normal differential with 65% neutrophils 10% lymphocytes. His hemoglobin has dropped slightly down to 8.6 but is still higher than the 6.8 when he was transfused on . His platelets are slightly elevated at 431. His lactic acid was not showing signs of sepsis with 0.97 level. His comprehensive metabolic panel showed sodium slightly low at 132, potassium 3.4, CO2 of 33 with a chloride of 87. His creatinine was 1.07 which was slightly improved from Wednesday. His lipase was negative at 14. He did not have any bacteria growth on his urine culture from Wednesday. Discussed with Dr. Koo, the on-call hospitalist for [facility]. Reviewed with her the patient's presentation and that this was a second ED visit for the same complaints. He has had over 2 weeks of diarrhea and his white blood cell count has been climbing. He does have testicular cancer with a large retroperitoneal mass. CT scan from Wednesday the had not shown any colitis or inflammation of the colon to indicate a reason for his continued diarrhea and vomiting. His labs were showing some decrease in his potassium to 3.4 and his CO2 was elevated to 33. His creatinine was a little better today at 1.07. On Wednesday it was up to 1.24. He is still not keeping anything down at home and having multiple episodes of diarrhea throughout the day. He has already had 2 episodes of diarrhea here in the emergency department since arrival. She was agreeable to an observation admission for IV fluids and hydration as well as seeking the results of his stool studies. He had been taking Cipro the last 2 days for possible UTI however his urine culture today was showing no growth. Dr. Koo will place queued orders on the patient. Departure Communication (Admissions) Time/Spoke to Admitting Phy: 17:[address] Koo, the on-call hospitalist for [facility]. Reviewed with her the patient's presentation and that this was a second ED visit for the same complaints. He has had over 2 weeks of diarrhea and his white blood cell count has been climbing. He does have testicular cancer with a large retroperitoneal mass. CT scan from Wednesday the had not shown any colitis or inflammation of the colon to indicate a reason for his continued diarrhea and vomiting. His labs were showing some decrease in his potassium to 3.4 and his CO2 was elevated to 33. His creatinine was a little better today at 1.07. On Wednesday it was up to 1.24. He is still not keeping anything down at home and having multiple episodes of diarrhea throughout the day. He has already had 2 episodes of diarrhea here in the emergency department since arrival. She was agreeable to an observation admission for IV fluids and hydration as well as seeking the results of his stool studies. He had been taking Cipro the last 2 days for possible UTI however his urine culture today was showing no growth. Dr. Koo will place queued orders on the patient. 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 Referrals: ARLIN MEDINA MD (PCP/Family) Primary Care Physician LORETA KAUR MD Sep 13, 2022 16:50
[2022-09-13 17:08] LABS: ALBUMIN 3.2 GM/DL (3.2-4.5); BILIRUBIN,TOTAL 0.3 MG/DL (0.1-1.0); CALCIUM 8.8 MG/DL (8.5-10.1); CREATININE SERUM 1.07 MG/DL (0.60-1.30); POTASSIUM 3.4 MMOL/L (3.6-5.0); TOTAL PROTEIN 6.2 GM/DL (6.4-8.2)
[2022-09-13 18:58] VITALS: BP 126/78
[2022-09-13] MEDS ORDERED: METOCLOPRAMIDE INJ 10 MG/2 ML (REGLAN) IVP PRN (19:00)
[2022-09-13] MEDS ORDERED: LACTULOSE SYRUP 10GM/15ML (ENULOSE) 30ML UDC PO PRN (19:00)
[2022-09-13] MEDS ORDERED: ONDANSETRON 4 MG (ZOFRAN) ORAL DISSOLVE TAB PO PRN (19:00)
[2022-09-13] MEDS ORDERED: diphenhydrAMINE 25 MG TAB (BENADRYL) PO PRN (19:00)
[2022-09-13] MEDS ORDERED: MELATONIN 3 MG TABLET PO PRN (19:00)
[2022-09-13] MEDS ORDERED: diphenhydrAMINE 50 MG/ML INJ (BENADRYL) IVP PRN (19:00)
[2022-09-13] MEDS ORDERED: HYDROmorphone 2 MG/ML VIAL (DILAUDID) IV PRN (19:00)
[2022-09-13] MEDS ORDERED: BISACODYL 10 MG SUPPOSITORY PR PRN (19:00)
[2022-09-13] MEDS ORDERED: ONDANSETRON 4 MG/2 ML (SDV) Z0FRAN IV PRN (19:00)
[2022-09-13] MEDS ORDERED: polyethylene glycoL POWDER 17 GM (MIRALAX) PACK PO PRN (19:00)
[2022-09-13] MEDS ORDERED: ANTACID SUSP 30 ML UDC (MYLANTA) PO PRN (19:00)
[2022-09-13] MEDS ORDERED: ACETAMINOPHEN 325 MG TABLET PO PRN (19:00)
[2022-09-13] MEDS ORDERED: LORazepam INJ 2 MG/ML (ATIVAN) VIAL IVP PRN (19:00)
[2022-09-13 19:20] VITALS: BP 121/70
[2022-09-13] MEDS: DOCUSATE SODIUM 100 MG (COLACE) CAP PO SCH (21:01)
[2022-09-13] MEDS: ENOXAPARIN 40 MG/0.4 ML (LOVENOX) SYR SC SCH ×2 (21:29→21:44)
[2022-09-13] MEDS: NS IV 1000 ML 1,000 ML IV SCH (21:29)
[2022-09-13] MEDS ORDERED: SCOPOLAMINE 1.5 MG (TRANSDERM-SCOP) PATCH TD ONE (21:30)
[2022-09-13] MEDS: PROMETHAZINE INJ 25 MG/ML (PHENERGAN) AMP IM PRN (22:01)
[2022-09-13 23:11] VITALS: BP 116/63
[2022-09-14 04:18] VITALS: BP 113/61
[2022-09-14 05:08] LABS: BASOPHILS # (AUTO) 0.1 10^3/uL (0.0-0.1); BASOPHILS % (AUTO) 0 % (0-10); EOSINOPHILS # (AUTO) 0.2 10^3/uL (0.0-0.3); EOSINOPHILS % (AUTO) 1 % (0-10); HEMATOCRIT 23 % (40-54); HEMOGLOBIN 7.3 g/dL (13.3-17.7); LYMPHOCYTES # (AUTO) 2.3 10^3/uL (1.0-4.0); LYMPHOCYTES % (AUTO) 9 % (12-44); MEAN CORPUSCULAR HEMOGLOBIN 28 pg (25-34); MEAN CORPUSCULAR HGB CONC 32 g/dL (32-36); MEAN CORPUSCULAR VOLUME 89 fL (80-99); MEAN PLATELET VOLUME 8.8 fL (9.0-12.2); MONOCYTES # (AUTO) 2.7 10^3/uL (0.0-1.0); MONOCYTES % (AUTO) 10 % (0-12); NEUTROPHILS # (AUTO) 17.4 10^3/uL (1.8-7.8); NEUTROPHILS % (AUTO) 66 % (42-75); PLATELET COUNT 409 10^3/uL (130-400); WHITE BLOOD COUNT 26.4 10^3/uL (4.3-11.0)
[2022-09-14] MEDS: NS IV 1000 ML 1,000 ML IV SCH ×3 (05:08→19:50)
[2022-09-14 05:40] LABS: ALBUMIN 2.5 GM/DL (3.2-4.5); BILIRUBIN,TOTAL 0.2 MG/DL (0.1-1.0); CALCIUM 7.7 MG/DL (8.5-10.1); CREATININE SERUM 1.11 MG/DL (0.60-1.30); POTASSIUM 2.7 MMOL/L (3.6-5.0); TOTAL PROTEIN 4.8 GM/DL (6.4-8.2)
[2022-09-14] MEDS ORDERED: MAGNESIUM 1 GM/100 ML IVPB 100 ML IV ONE (06:15)
[2022-09-14] MEDS: POTASSIUM CL 10MEQ/50ML IVPB 50 ML IV SCH ×6 (06:25→11:45)
[2022-09-14 07:36] VITALS: BP 109/68
[2022-09-14] MEDS: DOCUSATE SODIUM 100 MG (COLACE) CAP PO SCH ×2 (08:39→19:50)
[2022-09-14] MEDS ORDERED: PROM25TA14 PO (11:18)
[2022-09-14 11:26] VITALS: BP 128/77
--- NOTE | 2022-09-14 12:00 | History & Physical-Hospitalist ---
KWAME CLAROS 09/14/22 1200: History of Present Illness HPI/Chief Complaint Rio Retana is a 37yoM with past medical history of testicular cancer s/p orchiectomy and underwent cisplatin/etoposide regiment finished August 28 2022. He presented to the ED on 09/13 with intractable N/V/D. He has 2 other recent ER visits over the last 2 weeks for similar complaints. He was given antiemetics and started on IV fluids. He was found to be anemic with leukocytosis. He was also hyponatremic and hypokalemic. A urine cx was completed from the past ED visit last wednesday which showed no growth. He had taken cipro prior to this ED admission for suspected UTI. 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 He also received 1 unit of LRRBCs last week for a Hgb of less than 7 with appropriate response. Stool cultures, c diff toxin, and blood cultures were completed. He was admitted for further managment of his N/V and electrolyte abnormalities. On exam today he is feeling much better. He denies any further N/V. Last BM was liquid but much smaller in volume than prior to ED visit. Denies any blood in his emesis or stool. He denies any abdominal pain, fever, chills. Has gotten sick between his chemo doses before but not as bad as these last 2 weeks. He was able to tolerate a light breakfast of oatmeal this morning and has been able to keep fluids down. Drinking ensure shake during my interview. He also denies any chest pain or shortness of breath. Source: patient Exam Limitations: no limitations Date Seen 09/14/22 Time Seen by a Provider: 10:15 Attending Physician Antonio Scuhlz MD PCP Admitting Physician: Wilma Koo DO Attending Physician: Wilma Koo DO Referring Physician Date of Admission Sep 14, 2022 at 10:54 Home Medications & Allergies Home Medications Reviewed patient Home Medication Reconciliation performed by pharmacy medication reconciliations hydraulic technician and/or nursing. Patients Allergies have been reviewed. Allergies Allergies Coded Allergies No Known Drug Allergies (Unverified10/29/21) Past Gkomviz-Vbkxfa-Pbyhtq Hx Patient Social History Marrital Status: Tobacco Use?: No Smoking Status: Never a Smoker Smokeless Tobacco Frequency: Never a User Use of E-Cig and/or Vaping dev: No Substance use?: No Alcohol Use?: No Pt feels they are or have been: No Immunizations Up To Date First/Initial COVID19 Vaccinat: denies Second COVID19 Vaccination Dave: denies Tetanus Booster (TDap): Unknown Hepatitis A: No Hepatitis B: No Current Status Advance Directives: No Communicates: Verbally Primary Language: [place] Preferred Spoken Language: [place] Is interpretation needed?: No Implanted or Applied Medical D: Port-a-cath Past Medical History Surgeries: Testicular (orchiectomy) Testicular Family Medical History No Pertinent Family Hx Review of Systems Constitutional: No chills, No diaphoresis, No fever EENTM: No hearing loss, No vision loss Respiratory: No cough, No short of breath, No wheezing Cardiovascular: No chest pain, No palpitations Gastrointestinal: No abdominal pain; diarrhea; No nausea, No vomiting Genitourinary: No dysuria, No hematuria Skin: No change in color Psychiatric/Neurological: Denies Headache, Denies Pre-Existing Deficit Physical Exam Physical Exam Vital Signs Vital Signs - First Documented 09/13/22 09/13/22 16:30 18:58 Temp 36.4 Pulse 103 Resp 16 B/P (MAP) 126/78 (94) Pulse Ox 99 O2 Delivery Room Air FiO2 21 Capillary Refill : Less Than 3 Seconds Height, Weight, BMI Height: '" Weight: lbs. oz. kg; 27.00 BMI Method: General Appearance: No Apparent Distress, WD/WN HEENT: PERRL/EOMI, Moist Mucous Membranes Neck: Supple; No JVD Respiratory: Lungs Clear, Normal Breath Sounds, No Accessory Muscle Use, No Respiratory Distress Cardiovascular: Regular Rate, Rhythm, Normal Peripheral Pulses Gastrointestinal: Non Tender, Soft; No Distended Rectal: Deferred Extremity: No Calf Tenderness, No Pedal Edema Neurologic/Psychiatric: Alert, Oriented x3, Normal Mood/Affect Skin: Normal Color, Warm/Dry Results Results/Procedures Labs Laboratory Tests 09/13/22 16:35 09/14/22 05:00 Patient resulted labs reviewed. Imaging: Reviewed Imaging Films, Reviewed Imaging Report Assessment/Plan Admission Diagnosis Nausea/Vomiting Hypokalemia Hyponatremia Dehydration Admission Status: Inpatient Order (span 2 midnights) Reason for Inpatient Admission: N/V Hypokalemia Hyponatremia Dehydration Assessment and Plan Intractable N/V/D Reglan given in ED Promethazine and zofran prn Scopalamine patch symptoms improved likely related to damage to bowel epithelium caused by chemotherapy Regular diet as tolerated Stool cx negative, infectious etiology of diarrhea unlikely C diff toxins negative blood culture pending Continue normal saline 1 L at 125mls/hr q8hr Hypokalemia 2.7 this morning, receiving 60meq IV today Monitor CMP daily Encourage PO intake Hyponatremia 133 today up from 132 on admission continue IV fluids as above Anemia Hgb 7.3 MCV normal at 89 Likely represents chronic disease and effect of chemotherapy transfuse if less than 7 Monitor CBC daily Leukocytosis WBC count of 26 today up from 22 in ED Continue to monitor CBC daily no signs of systemic infection Hx of testicular cancer Sees Dr Barillas, appointment upcoming Sep 23 Completed current chemo regimen on August 28 Diet- regular as tolerated DVT ppx- lovenox 40mg sq daily Code status- FULL WILMA KOO DO 09/14/220: Assessment/Plan Admission Diagnosis Admission Status: Inpatient Order (span 2 midnights) Reason for Inpatient Admission: refractory N/V Supervisory-Addendum Brief Verification & Attestation Participated in pt care: history, MDM, physical Personally performed: exam, history, MDM, supervision of care Care discussed with: Medical Student Procedures: n/a Results interpretation: Verified all documentation Verification and Attestation of Medical Student E/M Service A medical student performed and documented this service in my presence. I reviewed and verified all information documented by the medical student and made modifications to such information, when appropriate. I personally performed the physical exam and medical decision making. Wilma Koo Sep 14, 2022,21:29 KWAME CLAROS Sep 14, 2022 12:00 WILMA KOO DO Sep 14, 2022 21:30
--- NOTE | 2022-09-14 15:50 | Physical Therapy Evaluation ---
PT Evaluation-General Medical Diagnosis Admission Date Sep 14, 2022 at 10:54 Medical Diagnosis: N/V/D Onset Date: Sep 14, 2022 Therapy Diagnosis Therapy Diagnosis: Gait deficit, strength deficit Precautions Precautions/Isolations: Chemo Precautions Weight Bear Status Right Lower Extremity: Right Full Weight Bearing Left Lower Extremity: Left Full Weight Bearing Referral Physician: Dr. Cochran Reason for Referral: Evaluation/Treatment Medical History Reviewed History: Yes Social History Home: [facility] Current Living Status: Children Entry Into Home: Stairs With Railing PT Steps Into Home: 4 PT Steps Inside Home: 6 Prior Prior Level of Function SCALE: Activities may be completed with or without assistive devices. 9-Zovqmjarqi-deuvmfn completes the activity by him/herself with no assistance from a helper. 5-Set-up or Clean-up Assistance-helper sets up or cleans up; patient completes activity. [place] assists only prior to or following the activity. 4-Supervision or Touching Assistance-helper provides verbal cues and/or touching/steadying and/or contact guard assistance as patient completes activity. Assistance may be provided throughout the activity or intermittently. 3-Partial/Moderate Assistance-helper does LESS THAN HALF the effort. [place] lifts, holds or supports trunk or limbs, but provides less than half the effort. 2-Substantial/Maximal Assistance-helper does MORE THAN HALF the effort. [place] lifts or holds trunk or limbs and provides more than half the effort. 1-Iiyfzhsiw-rrknol does ALL the effort. Patient does none of the effort to complete the activity. Or, the assistance of 2 or more helpers is required for the patient to complete the activity. If activity was not attempted, code reason: 7-Patient Refused. 9-Not Applicable-not attempted and the patient did not perform the activity before the current illness, exacerbation or injury. 10-Not Attempted due to Environmental Limitations-(lack of equipment, weather restraints, etc.). 88-Not Attempted due to Medical Conditions or Safety Concerns. Bed Mobility: 6 Transfers (B,C,W/C): 6 Gait: 6 Stairs: 6 Indoor Mobility (Ambulation): Independent Stairs: Independent Prior Devices Use: None PT Evaluation-Current Subjective Patient lying supine in bed upon PT arrival, agreeable to treatment. Objective Patient Orientation: Person, Place, Time, Situation Attachments: IV ROM/Strength ROM Lower Extremities WFLs BLEs all planes Strength Lower Extremities 4/5 BLEs all planes Sensory Vision: Functional Hearing: Functional Sensation Right Lower Extremit: Intact Sensation Left Lower Extremity: Intact Transfers Roll Left to Right (QC): 4 Sit to Lying (QC): 4 Lying to Sitting/Side of Bed(Q: 4 Sit to Stand (QC): 4 Chair/Jhr-ws-Tmqrk Xfer(QC): 4 Gait Does the Patient Walk?: Yes Mode of Locomotion: Walk Anticipated Mode of Locomotion: Walk Walk 10 feet (QC): 4 Walk 50 ft with 2 Turns(QC): 4 Walk 150 ft (QC): 4 Distance: 250' Gait Assistive Device: FWW Balance Sitting Static: Good Sitting Dynamic: Good Standing Static: Fair Standing Dynamic: Fair Assessment/Needs Patient tolerated treatment well. He performs all observed bed mobility and transfers with SBA/CGA. Patient ambulates 250 feet with FWW, with SBA and verbal cues for safety, progression, posture and conservation of energy. Patient in chair post treatment with all needs met, OFFICE RUNNER in the room changing bed and call light in reach. Rehab Potential: Good PT Mcfp Goals Fur Dyer Goals PT Mcfp Goals Time Frame: Oct 17, 2022 Roll Left & Right (QC): 6 Sit to Lying (QC): 6 Lying-Sitting on Side/Bed(QC): 6 Sit to Stand (QC): 6 Chair/Doe-bx-Qjcwp Xfer(QC): 6 Toilet Transfer (QC): 6 Does the Patient Walk: Yes Walk 10 feet (QC): 6 Walk 50ft with 2 Turns (QC): 6 Walk 150 ft (QC): 6 1 Step (curb) (QC): 4 4 Steps (QC): 4 12 Steps (QC): 4 PT Plan Problem List Problem List: Activity Tolerance, Functional Strength, Safety, Balance, Gait, Transfer, Bed Mobility, ROM Treatment/Plan Treatment Plan: Continue Plan of Care Treatment Plan: Bed Mobility, Education, Functional Activity Renny, Functional Strength, Group Therapy, Gait, Safety Treatment Duration: Oct 22, 2022 Frequency: 6 times per week Estimated Hrs Per Day: .25 hour per day Safety Risks/Education Patient Education: Gait Training, Transfer Techniques Teaching Recipient: Patient Teaching Methods: Demonstration, Discussion Response to Teaching: Verbalize Understanding, Return Demonstration Time Time In: 1110 Time Out: 1125 DATE: Sep 14, 2022 Total Billed Treatment Time: 15 Total Billed Treatment Visit, KANCHAN ROSS PT Sep 14, 2022 15:50
[2022-09-14 17:54] VITALS: BP 134/82
[2022-09-14] MEDS: ENOXAPARIN 40 MG/0.4 ML (LOVENOX) SYR SC SCH (19:50)
[2022-09-14 21:00] VITALS: BP 120/70
[2022-09-14] MEDS: PROMETHAZINE INJ 25 MG/ML (PHENERGAN) AMP IM PRN (22:34)
[2022-09-14 23:37] VITALS: BP 132/63
[2022-09-15] VITALS (9 sets, daily range): BP systolic 112–122; BP diastolic 60–71
[2022-09-15] MEDS: NS IV 1000 ML 1,000 ML IV SCH (03:16)
[2022-09-15 05:10] LABS: BASOPHILS # (AUTO) 0.1 10^3/uL (0.0-0.1); BASOPHILS % (AUTO) 0 % (0-10); EOSINOPHILS # (AUTO) 0.1 10^3/uL (0.0-0.3); EOSINOPHILS % (AUTO) 0 % (0-10); HEMATOCRIT 22 % (40-54); LYMPHOCYTES # (AUTO) 2.3 10^3/uL (1.0-4.0); LYMPHOCYTES % (AUTO) 10 % (12-44); MEAN CORPUSCULAR HEMOGLOBIN 29 pg (25-34); MEAN CORPUSCULAR HGB CONC 32 g/dL (32-36); MEAN CORPUSCULAR VOLUME 89 fL (80-99); MEAN PLATELET VOLUME 8.3 fL (9.0-12.2); MONOCYTES # (AUTO) 2.5 10^3/uL (0.0-1.0); MONOCYTES % (AUTO) 10 % (0-12); NEUTROPHILS # (AUTO) 16.2 10^3/uL (1.8-7.8); NEUTROPHILS % (AUTO) 67 % (42-75); PLATELET COUNT 392 10^3/uL (130-400); WHITE BLOOD COUNT 24.3 10^3/uL (4.3-11.0)
[2022-09-15 05:20] LABS: ALBUMIN 2.6 GM/DL (3.2-4.5); POTASSIUM 2.9 MMOL/L (3.6-5.0)
[2022-09-15 05:21] LABS: CALCIUM 7.8 MG/DL (8.5-10.1)
[2022-09-15 05:22] LABS: TOTAL PROTEIN 4.8 GM/DL (6.4-8.2)
[2022-09-15 05:24] LABS: BILIRUBIN,TOTAL 0.2 MG/DL (0.1-1.0)
[2022-09-15 05:26] LABS: CREATININE SERUM 0.89 MG/DL (0.60-1.30)
[2022-09-15] MEDS ORDERED: MAGNESIUM 1 GM/100 ML IVPB 100 ML IV ONE (07:00)
[2022-09-15] MEDS: POTASSIUM CL 10MEQ/50ML IVPB 50 ML IV SCH ×9 (07:35→16:54)
[2022-09-15] MEDS: DOCUSATE SODIUM 100 MG (COLACE) CAP PO SCH ×2 (07:35→20:18)
[2022-09-15] MEDS ORDERED: NS IV 500 ML 500 ML IV SCH (10:15)
--- NOTE | 2022-09-15 12:18 | Progress Note - Hospitalist ---
KWAME CLAROS 09/15/22 1218: Subjective HPI/CC On Admission Date Seen by Provider: Sep 15, 2022 Rio Retana is a 37yoM with past medical history of testicular cancer s/p orchiectomy and underwent cisplatin/etoposide regiment finished August 28 2022. He presented to the ED on 09/13 with intractable N/V/D. He has 2 other recent ER visits over the last 2 weeks for similar complaints. He was given antiemetics and started on IV fluids. He was found to be anemic with leukocytosis. He was also hyponatremic and hypokalemic. A urine cx was completed from the past ED visit last wednesday which showed no growth. He had taken cipro prior to this ED admission for suspected UTI. 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 He also received 1 unit of LRRBCs last week for a Hgb of less than 7 with appropriate response. Stool cultures, c diff toxin, and blood cultures were completed. He was admitted for further managment of his N/V and electrolyte abnormalities. On exam today he is feeling much better. He denies any further N/V. Last BM was liquid but much smaller in volume than prior to ED visit. Denies any blood in his emesis or stool. He denies any abdominal pain, fever, chills. Has gotten sick between his chemo doses before but not as bad as these last 2 weeks. He was able to tolerate a light breakfast of oatmeal this morning and has been able to keep fluids down. Drinking ensure shake during my interview. He also denies any chest pain or shortness of breath. Subjective/Events-last exam Patient seen and examined at bedside. He states that he feels much better this morning. He did have an episode of emesis last night. This morning he denies na usea and is eating breakfast. He would like to go home today but Dr Koo reassured him that his potassium level was still low and his Hgb was at transfusion level so we still had some things to fix before discharge. He was reluctant but agreeable to this plan. He is able to ambulate to the bathroom, will walk more today. Review of Systems General: No Chills; Fatigue HEENT: No Head Aches, No Visual Changes Pulmonary: No Dyspnea, No Cough Cardiovascular: No: Chest Pain, Palpitations Gastrointestinal: Nausea, Vomiting; No: Abdominal Pain Genitourinary: No Dysuria, No Hematuria Neurological: Weakness; No: Change in speech, Confusion Focused Exam Lactate Level 09/13/22 16:45: Lactic Acid Level 0.97 Objective Exam Vital Signs Vital Signs Date Time Temp Pulse Resp B/P (MAP) Pulse Ox O2 Delivery O2 Flow Rate FiO2 09/15/22 11:11 36.8 92 20 120/62 (81) 96 Room Air 09/13/22 18:58 21 Capillary Refill : Less Than 3 Seconds General Appearance: No Apparent Distress, WD/WN HEENT: PERRL/EOMI, Moist Mucous Membranes Neck: Supple; No JVD Respiratory: Lungs Clear, Normal Breath Sounds, No Accessory Muscle Use, No Respiratory Distress Cardiovascular: Regular Rate, Rhythm, Normal Peripheral Pulses Gastrointestinal: Non Tender, Soft; No Distended Rectal: Deferred Extremity: Non Tender, No Pedal Edema Neurologic/Psychiatric: Alert, Oriented x3, Normal Mood/Affect Skin: Normal Color, Warm/Dry, Pallor Results/Procedures Lab Laboratory Tests 09/15/22 05:02 Patient resulted labs reviewed. Imaging: Reviewed Imaging Films, Reviewed Imaging Report Assessment/Plan Assessment and Plan Assess & Plan/Chief Complaint Intractable N/V/D Reglan given in ED Promethazine and zofran prn Scopalamine patch symptoms improved likely related to damage to bowel epithelium caused by chemotherapy Regular diet as tolerated Stool cx negative, infectious etiology of diarrhea unlikely Fecal WBCs negative C diff toxins negative blood culture pending Hypokalemia 2.9 this morning, up from 2.7 receiving 80meq IV today Monitor CMP daily Encourage PO intake Hyponatremia 133 today up from 132 on admission Stable Likely secondary to emesis and diarrhea, encourage PO intake Anemia Hgb 7.0 MCV normal at 89 Likely represents chronic disease and effect of chemotherapy Will receive 1 unit of LRRBCs today Monitor CBC daily Leukocytosis WBC count of 24 today up from 22 in ED Continue to monitor CBC daily no signs of systemic infection Hx of testicular cancer Sees Dr Barillas, appointment upcoming Sep 23 Completed current chemo regimen on August 28 Diet- regular as tolerated DVT ppx- lovenox 40mg sq daily Code status- FULL WILMA KOO DO 09/16/22 0535: Supervisory-Addendum Brief Verification & Attestation Participated in pt care: history, MDM, physical Personally performed: exam, history, MDM, supervision of care Care discussed with: Medical Student Procedures: n/a Results interpretation: Verified all documentation Verification and Attestation of Medical Student E/M Service A medical student performed and documented this service in my presence. I reviewed and verified all information documented by the medical student and made modifications to such information, when appropriate. I personally performed the physical exam and medical decision making. Wilma Koo, Sep 16, 2022,05:35 KWAME CLAROS Sep 15, 2022 12:18 WILMA KOO DO Sep 16, 2022 05:35
--- NOTE | 2022-09-15 14:55 | Physical Therapy Daily Note ---
PT Daily Note-Current Subjective Patient lying supine in bed upon PT arrival, agreeable to treatment. Patient rates pain at 0/10 currently. Pain Section J - Health Conditions 1. Rarely or not at all 2. Occasionally 3. Frequently 4. Almost constantly 8. Unable to answer Pain Effect on Sleep: 1 Pain Interference with Therapy: 1 Pain Interference w/Day-to-Day: 1 Mental Status Patient Orientation: Person, Place, Time, Situation Transfers SCALE: Activities may be completed with or without assistive devices. 0-Jszcfoqvne-vecyvfb completes the activity by him/herself with no assistance from a helper. 5-Set-up or Clean-up Assistance-helper sets up or cleans up; patient completes activity. [place] assists only prior to or following the activity. 4-Supervision or Touching Assistance-helper provides verbal cues and/or touching/steadying and/or contact guard assistance as patient completes activity. Assistance may be provided throughout the activity or intermittently. 3-Partial/Moderate Assistance-helper does LESS THAN HALF the effort. [place] lifts, holds or supports trunk or limbs, but provides less than half the effort. 2-Substantial/Maximal Assistance-helper does MORE THAN HALF the effort. [place] lifts or holds trunk or limbs and provides more than half the effort. 5-Cvdkjhzuf-jlckas does ALL the effort. Patient does none of the effort to complete the activity. Or, the assistance of 2 or more helpers is required for the patient to complete the activity. If activity was not attempted, code reason: 7-Patient Refused. 9-Not Applicable-not attempted and the patient did not perform the activity before the current illness, exacerbation or injury. 10-Not Attempted due to Environmental Limitations-(lack of equipment, weather restraints, etc.). 88-Not Attempted due to Medical Conditions or Safety Concerns. Roll Left & Right (QC): 4 Sit to Lying (QC): 4 Lying to Sitting/Side of Bed(Q: 4 Sit to Stand (QC): 4 Chair/Tsq-ym-Tmnaq Xfer(QC): 44 Weight Bearing Right Lower Extremity: Right Full Weight Bearing Left Lower Extremity: Left Full Weight Bearing Assessment Current Status: Good Progress Patient tolerated treatment well. He performs all observed bed mobility and transfers with SBA Patient ambulates 350 feet with FWW, with SBA and verbal cues for safety, progression, posture and conservation of energy. Patient in bed post treatment with all needs met. PT Halfway Goals Halfway Goals PT Home Care Manager Rn Goals Time Frame: Oct 17, 2022 Roll Left & Right (QC): 6 Sit to Lying (QC): 6 Lying-Sitting on Side/Bed(QC): 6 Sit to Stand (QC): 6 Chair/Tfw-eq-Syxyz Xfer(QC): 6 Toilet Transfer (QC): 6 Does the Patient Walk: Yes Walk 10 feet (QC): 6 Walk 50ft with 2 Turns (QC): 6 Walk 150 ft (QC): 6 1 Step (curb) (QC): 4 4 Steps (QC): 4 12 Steps (QC): 4 PT Plan Treatment/Plan Treatment Plan: Continue Plan of Care Treatment Plan: Bed Mobility, Education, Functional Activity Renny, Functional Strength, Group Therapy, Gait, Safety Treatment Duration: Oct 22, 2022 Frequency: 6 times per week Estimated Hrs Per Day: .25 hour per day Safety Risks/Education Patient Education: Gait Training, Transfer Techniques Teaching Recipient: Patient Teaching Methods: Demonstration, Discussion Response to Teaching: Verbalize Understanding, Return Demonstration Time Time In: 1127 Time Out: 1137 DATE: Sep 15, 2022 Total Billed Treatment Time: 10 Total Billed Treatment Visit, GT KANCHAN RUSH PT Sep 15, 2022 14:55
[2022-09-15] MEDS: ENOXAPARIN 40 MG/0.4 ML (LOVENOX) SYR SC SCH (20:19)
[2022-09-16] MEDS: PROMETHAZINE INJ 25 MG/ML (PHENERGAN) AMP IM PRN (01:31)
[2022-09-16 03:07] VITALS: BP 110/71
[2022-09-16 06:24] LABS: BASOPHILS # (AUTO) 0.1 10^3/uL (0.0-0.1); BASOPHILS % (AUTO) 0 % (0-10); EOSINOPHILS # (AUTO) 0.1 10^3/uL (0.0-0.3); EOSINOPHILS % (AUTO) 1 % (0-10); HEMATOCRIT 24 % (40-54); HEMOGLOBIN 7.8 g/dL (13.3-17.7); LYMPHOCYTES # (AUTO) 1.7 10^3/uL (1.0-4.0); LYMPHOCYTES % (AUTO) 8 % (12-44); MEAN CORPUSCULAR HEMOGLOBIN 29 pg (25-34); MEAN CORPUSCULAR HGB CONC 33 g/dL (32-36); MEAN CORPUSCULAR VOLUME 89 fL (80-99); MEAN PLATELET VOLUME 8.5 fL (9.0-12.2); MONOCYTES # (AUTO) 2.1 10^3/uL (0.0-1.0); MONOCYTES % (AUTO) 10 % (0-12); NEUTROPHILS # (AUTO) 14.2 10^3/uL (1.8-7.8); NEUTROPHILS % (AUTO) 70 % (42-75); PLATELET COUNT 380 10^3/uL (130-400); WHITE BLOOD COUNT 20.3 10^3/uL (4.3-11.0)
[2022-09-16 06:39] LABS: ALBUMIN 2.5 GM/DL (3.2-4.5); POTASSIUM 3.2 MMOL/L (3.6-5.0)
[2022-09-16 06:40] LABS: CALCIUM 7.9 MG/DL (8.5-10.1)
[2022-09-16 06:42] LABS: TOTAL PROTEIN 4.7 GM/DL (6.4-8.2)
[2022-09-16 06:43] LABS: BILIRUBIN,TOTAL 0.3 MG/DL (0.1-1.0)
[2022-09-16 06:45] LABS: CREATININE SERUM 0.75 MG/DL (0.60-1.30)
[2022-09-16 07:47] VITALS: BP 113/60
[2022-09-16] MEDS: DOCUSATE SODIUM 100 MG (COLACE) CAP PO SCH (08:59)
--- NOTE | 2022-09-16 10:20 | Progress Note ---
KWAME CLAROS 09/16/22 1020: Progress Note Rio Retana is a 37yo M admitted for intractable N/V/D who recently completed chemo regimen for testicular cancer. HPI from admission "Rio Retana is a 37yoM with past medical history of testicular cancer s/p orchiectomy and underwent cisplatin/etoposide regiment finished August 28 2022. He presented to the ED on 09/13 with intractable N/V/D. He has 2 other recent ER visits over the last 2 weeks for similar complaints. He was given antiemetics and started on IV fluids. He was found to be anemic with leukocytosis. He was also hyponatremic and hypokalemic. A urine cx was completed from the past ED visit last wednesday which showed no growth. He had taken cipro prior to this ED admission for suspected UTI. 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 He also received 1 unit of LRRBCs last week for a Hgb of less than 7 with appropriate response. Stool cultures, c diff toxin, and blood cultures were completed. He was admitted for further managment of his N/V and electrolyte abnormalities. On exam today he is feeling much better. He denies any further N/V. Last BM was liquid but much smaller in volume than prior to ED visit. Denies any blood in his emesis or stool. He denies any abdominal pain, fever, chills. Has gotten sick between his chemo doses before but not as bad as these last 2 weeks. He was able to tolerate a light breakfast of oatmeal this morning and has been able to keep fluids down. Drinking ensure shake during my interview. He also denies any chest pain or shortness of breath." His hyponatremia eventually corrected with normal saline. He was supplemented with potassium which eventually fly to 3.2. IV phenergan and zofran as well as a scoplamine patch helped alleviate his nausea. He did have episode of emesis on 09/14 but did not have any more after. He remained hemodynamically stable with appropriate creatinine and BUN in spite of his fluids losses prior to admission. Dr Barillas checked an AFP level which was elevated due to recent CT scan findings concerning for metastasis of his testicular cancer. He received 1 unit of LRRBCs on 09/15 for a Hgb of 7.0 with appropriate rise to 7.8 which is consistent with his anemia from past lab work. He tolerated his regular diet with gradual increases in his appetite. He spoke with Dr Barillas regarding his CT findings and plans were discussed regarding going to [place] for excision or biopsy of his retroperitoneal mass. He will likely be discharged 09/16 as his N/V is under control and labs are close to baseline in the setting of his recent chemo and metastatic disease. Plan is for close outpatient follow up with PCP and with Dr Barillas for further planning regarding abdominal mass. WILMA KOO DO 09/16/222137: Supervisory-Addendum Brief Verification & Attestation Participated in pt care: history, MDM, physical Personally performed: exam, history, MDM, supervision of care Care discussed with: Medical Student Procedures: n/a Results interpretation: Verified all documentation Verification and Attestation of Medical Student E/M Service A medical student performed and documented this service in my presence. I reviewed and verified all information documented by the medical student and made modifications to such information, when appropriate. I personally performed the physical exam and medical decision making. Wilma Koo, Sep 16, 2022,21:38 KWAME CLAROS Sep 16, 2022 10:20 WILMA KOO DO Sep 16, 2022 21:38
[2022-09-16] MEDS ORDERED: KCL 20 MEQ TAB (K-DUR) PO SCH (10:45)
[2022-09-16] MEDS ORDERED: POTA-169 PO (11:37)
--- NOTE | 2022-09-16 11:37 | Discharge Summary ---
Discharge Summary Hospital Course Was the Problem List Reviewed?: Yes Problems/Dx: (1) Nausea vomiting and diarrhea Status: Acute (2) Dehydration Status: Acute Hospital Course Date of Admission: Sep 14, 2022 at 10:54 Admission Diagnosis : Family Physician/Provider: Antonio Schulz MD Date of Discharge: 09/16/22 Discharge Diagnosis: [ ] Hospital Course: Rio Retana is a 37yo M admitted for intractable N/V/D who recently completed chemo regimen for testicular cancer. HPI from admission "Rio Retana is a 37yoM with past medical history of testicular cancer s/p orchiectomy and underwent cisplatin/etoposide regiment finished August 28 2022. He presented to the ED on 09/13 with intractable N/V/D. He has 2 other recent ER visits over the last 2 weeks for similar complaints. He was given antiemetics an d started on IV fluids. He was found to be anemic with leukocytosis. He was also hyponatremic and hypokalemic. A urine cx was completed from the past ED visit last wednesday which showed no growth. He had taken cipro prior to this ED admission for suspected UTI. 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 He also received 1 unit of LRRBCs last week for a Hgb of less than 7 with appropriate response. Stool cultures, c diff toxin, and blood cultures were completed. He was admitted for further managment of his N/V and electrolyte abnormalities. On exam today he is feeling much better. He denies any further N/V. Last BM was liquid but much smaller in volume than prior to ED visit. Denies any blood in his emesis or stool. He denies any abdominal pain, fever, chills. Has gotten sick between his chemo doses before but not as bad as these last 2 weeks. He was able to tolerate a light breakfast of oatmeal this morning and has been able to keep fluids down. Drinking ensure shake during my interview. He also denies any chest pain or shortness of breath." His hyponatremia eventually corrected with normal saline. He was supplemented with potassium which eventually fly to 3.2. IV phenergan and zofran as well as a scoplamine patch helped alleviate his nausea. He did have episode of emesis on 09/14 but did not have any more after. He remained hemodynamically stable with appropriate creatinine and BUN in spite of his fluids losses prior to admission. Dr Ovalles checked an AFP level which was elevated due to recent CT scan findings concerning for metastasis of his testicular cancer. He received 1 unit of LRRBCs on 09/15 for a Hgb of 7.0 with appropriate rise to 7.8 which is consistent with his anemia from past lab work. He tolerated his regular diet with gradual increases in his appetite. He spoke with Dr Ovalles regarding his CT findings and plans were discussed regarding going to [place] for excision or biopsy of his retroperitoneal mass. He will likely be discharged 09/16 as his N/V is under control and labs are close to baseline in the setting of his recent chemo and metastatic disease. Plan is for close outpatient follow up with PCP and with Dr Ovalles for further planning regarding abdominal mass. Labs and Pending Lab Test: Laboratory Tests 09/16/22 05:00: White Blood Count 20.3H, Red Blood Count 2.69L, Hemoglobin 7.8L, Hematocrit 24L, Mean Corpuscular Volume 89, Mean Corpuscular Hemoglobin 29, Mean Corpuscular Hemoglobin Concent 33, Red Cell Distribution Width 18.3H, Platelet Count 380, Mean Platelet Volume 8.5L, Immature Granulocyte % (Auto) 11, Neutrophils (%) (Auto) 70, Lymphocytes (%) (Auto) 8L, Monocytes (%) (Auto) 10, Eosinophils (%) (Auto) 1, Basophils (%) (Auto) 0, Neutrophils # (Auto) 14.2H, Lymphocytes # (Auto) 1.7, Monocytes # (Auto) 2.1H, Eosinophils # (Auto) 0.1, Basophils # (Auto) 0.1, Immature Granulocyte # (Auto) 2.2H, Sodium Level 135, Potassium Level 3.2L, Chloride Level 101, Carbon Dioxide Level 26, Anion Gap 8, Blood Urea Nitrogen 9, Creatinine 0.75, Estimat Glomerular Filtration Rate 120, BUN/Creatinine Ratio 12, Glucose Level 98, Calcium Level 7.9L, Corrected Calcium 9.1, Total Bilirubin 0.3, Aspartate Amino Transf (AST/SGOT) 17, Alanine Aminotransferase (ALT/SGPT) 10, Alkaline Phosphatase 78, Total Protein 4.7L, Albumin 2.5L Microbiology 09/15/22 Stool Culture - Preliminary, Resulted 09/13/22 Blood Culture - Preliminary, Resulted No growth Home Meds Active Klor-Con M20 (Potassium Chloride) 20 Meq Tab.er.prt 20 Meq PO BID Assessment/Pt Instructions dr ovalles 09/23/22 Discharge Planning: <30 minutes discharge planning Discharge Instructions Discharge Diet: No Restrictions Discharge Physical Examination Vital Signs Vital Signs Date Time Temp Pulse Resp B/P (MAP) Pulse Ox O2 Delivery O2 Flow Rate FiO2 09/16/22 08:00 95 Room Air 09/16/22 07:47 37.6 96 18 113/60 (77) 09/13/22 18:58 21 General Appearance: No Apparent Distress, WD/WN, Chronically ill Allergies: Coded Allergies: No Known Drug Allergies (Unverified , 10/29/21) Discharge Summary Date of Admission Sep 14, 2022 at 10:54 Date of Discharge Discharge Date: Sep 16, 2022 Admission Diagnosis LU KOO DO Sep 16, 2022 11:37
[2022-09-16 11:49] VITALS: BP 113/60
[2022-09-16 11:50] VITALS: BP 113/64
--- NOTE | 2022-09-16 15:36 | Physical Therapy Daily Note ---
PT Daily Note-Current Subjective Patient lying supine in bed upon PT arrival agreeable to treatment. Patient rates pain at 0/10 currently. Pain Section J - Health Conditions 1. Rarely or not at all 2. Occasionally 3. Frequently 4. Almost constantly 8. Unable to answer Pain Effect on Sleep: 1 Pain Interference with Therapy: 1 Pain Interference w/Day-to-Day: 1 Transfers SCALE: Activities may be completed with or without assistive devices. 1-Xqnfgpplvh-hyzhccx completes the activity by him/herself with no assistance from a helper. 5-Set-up or Clean-up Assistance-helper sets up or cleans up; patient completes activity. [place] assists only prior to or following the activity. 4-Supervision or Touching Assistance-helper provides verbal cues and/or touching/steadying and/or contact guard assistance as patient completes activity. Assistance may be provided throughout the activity or intermittently. 3-Partial/Moderate Assistance-helper does LESS THAN HALF the effort. [place] lift s, holds or supports trunk or limbs, but provides less than half the effort. 2-Substantial/Maximal Assistance-helper does MORE THAN HALF the effort. [place] lifts or holds trunk or limbs and provides more than half the effort. 3-Ggqfvxgms-jgxxxi does ALL the effort. Patient does none of the effort to complete the activity. Or, the assistance of 2 or more helpers is required for the patient to complete the activity. If activity was not attempted, code reason: 7-Patient Refused. 9-Not Applicable-not attempted and the patient did not perform the activity before the current illness, exacerbation or injury. 10-Not Attempted due to Environmental Limitations-(lack of equipment, weather restraints, etc.). 88-Not Attempted due to Medical Conditions or Safety Concerns. Roll Left & Right (QC): 6 Sit to Lying (QC): 6 Lying to Sitting/Side of Bed(Q: 6 Sit to Stand (QC): 6 Chair/Htm-jj-Hfhpg Xfer(QC): 6 Toilet Transfer (QC): 6 Weight Bearing Right Lower Extremity: Right Full Weight Bearing Left Lower Extremity: Left Full Weight Bearing Gait Training Distance: 450' Walk 10 feet (QC): 6 Walk 50 ft with 2 Turns(QC): 6 Walk 150 ft (QC): 6 Gait Assistive Device: None Assessment Current Status: Excellent Progress Patient tolerated treatment well. He performs all observed bed mobility and transfers with independence. Patient ambulates 450 feet with FWW, with SBA and verbal cues for safety, progression, posture and conservation of energy. Patient in bed post treatment with all needs met. PT Weight Loss Sales Consultant Goals Weight Loss Sales Consultant Goals PT Snf Goals Time Frame: Oct 17, 2022 Roll Left & Right (QC): 6 Sit to Lying (QC): 6 Lying-Sitting on Side/Bed(QC): 6 Sit to Stand (QC): 6 Chair/Hod-as-Isgmz Xfer(QC): 6 Toilet Transfer (QC): 6 Does the Patient Walk: Yes Walk 10 feet (QC): 6 Walk 50ft with 2 Turns (QC): 6 Walk 150 ft (QC): 6 1 Step (curb) (QC): 4 4 Steps (QC): 4 12 Steps (QC): 4 PT Plan Treatment/Plan Treatment Plan: Continue Plan of Care Treatment Plan: Bed Mobility, Education, Functional Activity Renny, Functional Strength, Group Therapy, Gait, Safety Treatment Duration: Oct 22, 2022 Frequency: 6 times per week Estimated Hrs Per Day: .25 hour per day Safety Risks/Education Patient Education: Gait Training Teaching Recipient: Patient, Family Teaching Methods: Demonstration, Discussion Response to Teaching: Verbalize Understanding, Return Demonstration Time Time In: 1044 Time Out: 1054 DATE: Sep 16, 2022 Total Billed Treatment Time: 10 Total Billed Treatment Visit, KANCHAN DESAI PT Sep 16, 2022 15:36
== END 2022-09-16 14:12 | disposition home or self-care (01) | DRG 394 ==
LOC: EDUNIT# 16:26 → ER FS 16:26 → 4TH 18:42 → OBSVTOIN 09-14 10:54
PROVIDERS: ADMIT Internal Medicine; ATTEND Internal Medicine
DX: K52.1 Toxic gastroenteritis and colitis (principal); C77.2 Secondary and unspecified malignant neoplasm of intra-abdominal lymph nodes; E87.1 Hypo-osmolality and hyponatremia; C78.6 Secondary malignant neoplasm of retroperitoneum and peritoneum; R11.2 Nausea with vomiting, unspecified; T45.1X5A Adverse effect of antineoplastic and immunosuppressive drugs, initial encounter; E86.0 Dehydration; D64.9 Anemia, unspecified; D72.829 Elevated white blood cell count, unspecified; E87.6 Hypokalemia; Z85.47 Personal history of malignant neoplasm of testis; Z79.899 Other long term (current) drug therapy
CPT/HCPCS: 36415; 80053; 82105; 83605; 83690; 83735; 85025; 86850; 86900; 86901; 86920; 87015; 87040; 87045; 87046; 87324; 87449; 87899; 89055; 96361; 96374; 96375; G0378

== ENCOUNTER 2022-09-21 14:45 | Emergency (ER) | payer MEDICARE, MEDICAID ==
[~2022-09-21 14:45] MED LIST changes: +POTA-169 PO
[2022-09-21] MEDS ORDERED: FAMOTIDINE 20 MG (PEPCID) TABLET PO STA (14:55)
[2022-09-21] MEDS ORDERED: ANTACID SUSP 30 ML UDC (MYLANTA) PO ONE (15:00)
[2022-09-21] MEDS ORDERED: LIDOCAINE 2% VISCOUS 15 ML UDC PO ONE (15:00)
[2022-09-21] MEDS ORDERED: DroPERidol INJECTION 5 MG/2 ML (ED ONLY!) IV ONE (15:00)
[2022-09-21 15:08] LABS: BASOPHILS # (AUTO) 0.1 10^3/uL (0.0-0.1); BASOPHILS % (AUTO) 1 % (0-10); EOSINOPHILS % (AUTO) 0 % (0-10); HEMATOCRIT 27 % (40-54); HEMOGLOBIN 8.2 g/dL (13.3-17.7); LYMPHOCYTES # (AUTO) 1.4 10^3/uL (1.0-4.0); LYMPHOCYTES % (AUTO) 8 % (12-44); MEAN CORPUSCULAR HEMOGLOBIN 28 pg (25-34); MEAN CORPUSCULAR HGB CONC 30 g/dL (32-36); MEAN CORPUSCULAR VOLUME 91 fL (80-99); MEAN PLATELET VOLUME 8.6 fL (9.0-12.2); MONOCYTES # (AUTO) 1.6 10^3/uL (0.0-1.0); MONOCYTES % (AUTO) 9 % (0-12); NEUTROPHILS # (AUTO) 13.9 10^3/uL (1.8-7.8); NEUTROPHILS % (AUTO) 81 % (42-75); PLATELET COUNT 330 10^3/uL (130-400); WHITE BLOOD COUNT 17.2 10^3/uL (4.3-11.0)
--- NOTE | 2022-09-21 15:16 | ED Chest Pain ---
General Chief Complaint: Chest Pain Stated Complaint: CHEST PAIN Source: patient, old records Exam Limitations: no limitations History of Present Illness Date Seen by Provider: Sep 21, 2022 Time Seen by Provider: 14:47 Initial Comments 37yoM with PMH of testicular cancer with mets s/p chemotherapy now with new large retroperitoneal mass coming in due to chest pain. The pain started yesterday, constant, burning discomfort. Nothing really seems to make it better or worse. Denies ever having this discomfort before. Denies any lower extremity swelling or pain, no prior history of DVT or PE, no shortness of breath, fever, cough, or any other concerns. Also denies any cardiac history and does not smoke. Allergies and Home Medications Allergies Coded Allergies: No Known Drug Allergies (Unverified , 10/29/21) Patient Home Medication List Home Medication List Reviewed: Yes Potassium Chloride (Klor-Con M20) 20 Meq Tab.er.prt, 20 MEQ PO BID Prescribed by: LU KOO on 09/16/22 1137 Review of Systems Review of Systems Constitutional: No fever EENTM: No Symptoms Reported Respiratory: No Symptoms Reported Cardiovascular: See HPI Gastrointestinal: See HPI Genitourinary: No Symptoms Reported Musculoskeletal: no symptoms reported Skin: no symptoms reported Psychiatric/Neurological: No Symptoms Reported Endocrine: No Symptoms Reported Past Vcmdcrg-Khames-Dhzjjb Hx Patient Social History Tobacco Use?: No Use of E-Cig and/or Vaping dev: No Substance use?: No Alcohol Use?: No Pt feels they are or have been: No Immunizations Up To Date First/Initial COVID19 Vaccinat: denies Second COVID19 Vaccination Dave: denies Third COVID19 Vaccination Date: denies Past Medical History Surgery/Hospitalization HX: Metastatic Testicular cancer, Colon Cancer, Right Orchiectomy 03/2022,Portacath placement May 2022 Surgeries: Yes Testicular Testicular Family Medical History No Pertinent Family Hx Physical Exam Vital Signs Vital Signs - First Documented 09/21/22 14:45 Temp 36.6 Pulse 105 Resp 21 B/P (MAP) 118/72 (87) Pulse Ox 100 O2 Delivery Room Air Capillary Refill : NONE Height, Weight, BMI Height: '" Weight: lbs. oz. kg; 27.00 BMI Method: General Appearance: No Apparent Distress, WD/WN HEENT: PERRL/EOMI, Normal ENT Inspection, Pharynx Normal Neck: Full Range of Motion, Normal Inspection, Non Tender, Supple Respiratory: Chest Non Tender, Lungs Clear, Normal Breath Sounds, No Accessory Muscle Use, No Respiratory Distress Cardiovascular: Regular Rate, Rhythm, No Edema, Normal Peripheral Pulses Gastrointestinal: Normal Bowel Sounds, Soft; No Distended, No Guarding; Tenderness (epigastric) Extremity: Normal Capillary Refill, Normal Inspection, Normal Range of Motion, Non Tender, No Calf Tenderness, No Pedal Edema Neurologic/Psychiatric: Alert, No Motor/Sensory Deficits, Normal Mood/Affect Skin: Normal Color, Warm/Dry Progress/Results/Core Measures Results/Orders Lab Results Laboratory Tests Test 09/21/22 15:00 Range/Units White Blood Count 17.2 H 4.3-11.0 10^3/uL Red Blood Count 2.98 L 4.30-5.52 10^6/uL Hemoglobin 8.2 L 13.3-17.7 g/dL Hematocrit 27 L 40-54 % Mean Corpuscular Volume 91 80-99 fL Mean Corpuscular Hemoglobin 28 25-34 pg Mean Corpuscular Hemoglobin Concent 30 L 32-36 g/dL Red Cell Distribution Width 17.3 H 10.0-14.5 % Platelet Count 330 130-400 10^3/uL Mean Platelet Volume 8.6 L 9.0-12.2 fL Immature Granulocyte % (Auto) 1 % Neutrophils (%) (Auto) 81 H 42-75 % Lymphocytes (%) (Auto) 8 L 12-44 % Monocytes (%) (Auto) 9 0-12 % Eosinophils (%) (Auto) 0 0-10 % Basophils (%) (Auto) 1 0-10 % Neutrophils # (Auto) 13.9 H 1.8-7.8 10^3/uL Lymphocytes # (Auto) 1.4 1.0-4.0 10^3/uL Monocytes # (Auto) 1.6 H 0.0-1.0 10^3/uL Eosinophils # (Auto) 0.0 0.0-0.3 10^3/uL Basophils # (Auto) 0.1 0.0-0.1 10^3/uL Immature Granulocyte # (Auto) 0.2 H 0.0-0.1 10^3/uL Neutrophils % (Manual) 77 % Lymphocytes % (Manual) 9 % Monocytes % (Manual) 9 % Eosinophils % (Manual) 0 % Basophils % (Manual) 1 % Band Neutrophils 4 % Platelet Estimate NORMAL Hypochromasia 2+ Microcytosis 1+ Macrocytosis 1+ Prothrombin Time 14.1 12.2-14.7 SEC INR Comment 1.0 0.8-1.4 Activated Partial Thromboplast Time 25 24-35 SEC Sodium Level 137 135-145 MMOL/L Potassium Level 4.5 3.6-5.0 MMOL/L Chloride Level 99 98-107 MMOL/L Carbon Dioxide Level 26 21-32 MMOL/L Anion Gap 12 5-14 MMOL/L Blood Urea Nitrogen 13 7-18 MG/DL Creatinine 0.86 0.60-1.30 MG/DL Estimat Glomerular Filtration Rate 115 BUN/Creatinine Ratio 15 Glucose Level 107 H 70-105 MG/DL Calcium Level 9.0 8.5-10.1 MG/DL Corrected Calcium 9.8 8.5-10.1 MG/DL Magnesium Level 2.1 1.6-2.4 MG/DL Total Bilirubin 0.3 0.1-1.0 MG/DL Aspartate Amino Transf (AST/SGOT) 14 5-34 U/L Alanine Aminotransferase (ALT/SGPT) 13 0-55 U/L Alkaline Phosphatase 91 40-136 U/L Troponin I < 0.30 <0.30 NG/ML Total Protein 6.0 L 6.4-8.2 GM/DL Albumin 3.0 L 3.2-4.5 GM/DL Lipase 35 8-78 U/L My Orders Orders - TAM RITTER MD Cbc With Automated Diff (09/21/22 14:55) Magnesium (09/21/22 14:55) Chest 1 View Ap/Pa Only (09/21/22 14:55) Ekg Tracing (09/21/22 14:55) Comprehensive Metabolic Panel (09/21/22 14:55) Protime With Inr (09/21/22 14:55) Partial Thromboplastin Time (09/21/22 14:55) O2 (09/21/22 14:55) Monitor-Rhythm Ecg Trace Only (09/21/22 14:55) Ed Iv/Invasive Line Start (09/21/22 14:55) Lipase (09/21/22 14:55) Troponin I Fs (09/21/22 14:55) Lidocaine 2% Viscous 15 Ml (Xylocaine Vi (09/21/22 15:00) Famotidine Tablet (Pepcid Tablet) (09/21/22 14:55) Antacid Suspension (Mylanta Suspension (09/21/22 15:00) Droperidol Inj (Ed Only) (Inapsine Inj ( (09/21/22 15:00) Manual Differential (09/21/22 15:00) Medications Given in ED Current Medications Medications Dose Ordered Sig/Elizabeth Route Start Time Stop Time Status Last Admin Dose Admin Al Hydrox/Mg Hydrox/Simethicone 30 ml ONCE ONCE PO 09/21/22 15:00 09/21/22 15:01 DC 09/21/22 15:21 30 ML Droperidol 1.25 mg ONCE ONCE IV 09/21/22 15:00 09/21/22 15:01 DC 09/21/22 15:21 1.25 MG Lidocaine HCl 15 ml ONCE ONCE PO 09/21/22 15:00 09/21/22 15:01 DC 09/21/22 15:21 15 ML Vital Signs/I&O 09/21/22 14:45 Temp 36.6 Pulse 105 Resp 21 B/P (MAP) 118/72 (87) Pulse Ox 100 O2 Delivery Room Air Progress Progress Note : Progress Note 37-year-old male presenting for burning chest pain. ABCs were intact and vitals were stable on presentation. Physical exam with no significant abnormalities other than some mild epigastric discomfort. EKG ordered and interpreted by me showing no acute ischemic changes. An IV was placed and basic labs were obtained were significant for negative troponin, leukocytosis with a white blood cell count of 17, downtrending from prior, and normal creatinine. Symptoms not consistent with ACS. Upon laying down, heart rate in the 90s, oxygen saturation completely normal, no shortness of breath, no clinical signs of a DVT, and overall I think a PE is unlikely. Chest x-ray ordered and interpreted by me showing no pneumothorax, normal cardiac silhouette, and no obvious pneumonia. I reviewed his CT imaging from September 09 showing the large retroperitoneal mass. I also reviewed his discharge summary from a few days ago where he had intractable vomiting. He was given a GI cocktail as well as droperidol for his nausea. Symptoms have improved. Does not appear to have any life-threatening causes of chest burning at this time. I believe he stable for discharge with outpatient follow-up with his oncologist. He was sent home with strict return precautions. Initial ECG Impression Date: Sep 21, 2022 Initial ECG Impression Time: 14:50 Initial ECG Rate: 102 Initial ECG Rhythm: S.Tach Comment Narrow QRS, normal axis, no significant ST changes or T wave abnormality Diagnostic Imaging Diagonstic Imaging: Xray (chest) Comments NAME: CAMILLA ANGUIANO JR [facility] REC#: [id number] PT STATUS: REG ER : 1985 PHYSICIAN: TAM RITTER MD ADMIT DATE: 09/21/22/ER FS Draft Date of Exam:09/21/22 CHEST 1 VIEW AP/PA ONLY INDICATION: Chest pain. TECHNIQUE/COMPARISON: A frontal chest was obtained at 2:59 PM and compared to 07/19/2022. FINDINGS: The Port-A-Cath is unchanged. The heart and mediastinal silhouette are normal in appearance. The lungs are clear. There is no pneumothorax or pleural fluid. IMPRESSION: No acute process in the chest. Dictated on workstation # [id number] Dict: 09/21/22 1512 Trans: 09/21/22 1514 [id number] Interpreted by: LONI BANDA MD Electronically signed by: Departure Impression Primary Impression: Chest pain Qualified Codes: R07.82 - Intercostal pain Disposition: 01 HOME, SELF-CARE Condition: Stable Departure-Patient Inst. Decision time for Depature: 16:00 Referrals: ARLIN MEDINA MD (PCP/Family) Primary Care Physician Patient Instructions: Chest Pain, Adult ED Add. Discharge Instructions: This does not appear to be a life-threatening cause of chest pain such as a heart attack at this time. We recommend taking dduo-gyq-slcqaiw medicines for it, and you can also take nausea medicines at home. Follow-up with your oncologist as scheduled, sooner if not improving. TAM RITTER MD Sep 21, 2022 15:16
[2022-09-21 15:22] LABS: PROTHROMBIN TIME PATIENT 14.1 SEC (12.2-14.7)
[2022-09-21 15:23] LABS: BAND NEUTROPHILS 4 %; LYMPHOCYTES % (MANUAL) 9 %; NEUTROPHILS % (MANUAL) 77 %
[2022-09-21 15:24] LABS: BASOPHILS % (MANUAL) 1 %; EOSINOPHILS % (MANUAL) 0 %; HYPOCHROMASIA 2+; MICROCYTOSIS 1+; MONOCYTES % (MANUAL) 9 %; PLATELET ESTIMATE NORMAL
[2022-09-21 15:32] LABS: ALANINE AMINOTRANSFERASE 13 U/L (0-55); ALKALINE PHOSPHATASE 91 U/L (40-136); BILIRUBIN,TOTAL 0.3 MG/DL (0.1-1.0); BUN/CREATININE RATIO 15; CARBON DIOXIDE 26 MMOL/L (21-32); CHLORIDE 99 MMOL/L (98-107); CREATININE SERUM 0.86 MG/DL (0.60-1.30); GFR ESTIMATED 115; GLUCOSE 107 MG/DL (70-105); MAGNESIUM 2.1 MG/DL (1.6-2.4); POTASSIUM 4.5 MMOL/L (3.6-5.0); SODIUM 137 MMOL/L (135-145)
[2022-09-21 15:33] LABS: LIPASE 35 U/L (8-78)
[2022-09-21 15:49] VITALS: BP 115/67
== END 2022-09-21 15:49 | disposition home or self-care (01) ==
LOC: EDUNIT# 14:45 → ER FS 14:47
DX: R07.9 Chest pain, unspecified (principal); R10.13 Epigastric pain; R11.2 Nausea with vomiting, unspecified; C62.90 Malignant neoplasm of unspecified testis, unspecified whether descended or undescended; C78.6 Secondary malignant neoplasm of retroperitoneum and peritoneum; Z92.21 Personal history of antineoplastic chemotherapy; Z90.79 Acquired absence of other genital organ(s); Z28.310 Unvaccinated for COVID-19
CPT/HCPCS: 36415; 71045; 80053; 83690; 83735; 84484; 85007; 85027; 85610; 85730; 93005; 93041

== ENCOUNTER → 2022-10-05 | Outpatient (CLI) | payer MEDICARE, MEDICAID ==
[~2022-10-05] MED LIST changes: +CATHETER FLUSH 10 ML SYR IVP PRN
== END ==
LOC: RAD 08:09
PROVIDERS: ATTEND Family Medicine
DX: C62.90 Malignant neoplasm of unspecified testis, unspecified whether descended or undescended (principal)
CPT/HCPCS: 82947

== ENCOUNTER → 2022-10-05 | Outpatient (CLI) | payer MEDICARE, MEDICAID ==
[~2022-10-05] MED LIST changes: -CATHETER FLUSH 10 ML SYR IVP PRN; +GADOTERATE 0.5 MMOL/ML (CLARISCAN) 15 ML VIAL IV ONE
--- NOTE | 2022-10-05 09:41 | Diagnostic Imaging Report ---
PROCEDURE: MR imaging of the brain with and without contrast. TECHNIQUE: Multiplanar, multisequence MR imaging of the brain was performed with and without contrast. INDICATION: Testicular tumor workup COMPARISON: None. FINDINGS: No acute infarct. No acute or chronic hemorrhage. 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 No hydrocephalus. No mass or abnormal enhancement. The pituitary gland sella are normal. The midline craniocervical anatomy is normal. The paranasal sinuses and mastoids are clear. IMPRESSION: No evidence of intracranial metastatic disease. No mass or abnormal enhancement. 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 No hydrocephalus. Dictated by: Dictated on workstation # [id number]
--- NOTE | 2022-10-05 16:08 | Diagnostic Imaging Report ---
INDICATION: Initial staging malignant neoplasm of testes. Serum blood glucose level at the time of injection is 120 mg/dL. TECHNIQUE: The patient was administered 9.9 mCi F-18 FDG intravenously in the right antecubital location and PET imaging was performed from the top of the skull to mid thighs. Noncontrast CT was also performed for attenuation correction and anatomic correlation. CORRELATION is made with prior CT chest, abdomen and pelvis study from 09/09/2022. No prior PET studies are available for comparison. There is symmetric activity throughout the brain. Soft tissues of the neck are unremarkable. There is uptake identified in the left upper lobe. There appears to also be uptake in the superior segment of the left lower lobe. Features are suggestive of pneumonia. No discrete mass is identified. No mediastinal or hilar hypermetabolism is detected. The large mixed solid and cystic mass in the retroperitoneum, midline abdomen described on prior CT is again noted showing some hypermetabolic foci along the right anterolateral margin. SUV max is approximately 11.2. Focus on the left side has an SUV max of 23.9. No other hypermetabolic foci are seen apart from diffuse moderate uptake throughout the marrow of the axial and appendicular skeleton. No definite iliac or inguinal hypermetabolism is seen. IMPRESSION: 1. There appears to be some airspace infiltrate in the left upper lobe and left lower lobe, suggestive of an infectious/inflammatory process such as pneumonia. Interval follow-up to confirm clearing would be recommended. 2. No mediastinal or hilar hypermetabolism is identified. 3. Large mixed solid and cystic mass in the retroperitoneum does show multiple foci of hypermetabolism, suggestive of a metastatic lesion. 4. No other hypermetabolic foci are identified apart from moderate generalized marrow uptake throughout the axial and appendicular skeleton. Findings are likely owing to a marrow proliferative process. Metastatic disease cannot be entirely excluded. No other significant abnormalities are seen. Dictated by: Dictated on workstation # [id number]
== END ==
LOC: RAD 08:08
PROVIDERS: ATTEND Internal Medicine Hematology & Oncology
DX: K68.9 Other disorders of retroperitoneum (principal); R91.8 Other nonspecific abnormal finding of lung field; C62.90 Malignant neoplasm of unspecified testis, unspecified whether descended or undescended
CPT/HCPCS: 70553

== ENCOUNTER 2022-10-06 08:47 | Outpatient (RCR) | payer MEDICARE, MEDICAID ==
[2022-09-28 10:35] VITALS: BP 101/67
[2022-09-29 14:58] LABS: BASOPHILS # (AUTO) 0.1 10^3/uL (0.0-0.1); BASOPHILS % (AUTO) 0 % (0-10); EOSINOPHILS # (AUTO) 0.1 10^3/uL (0.0-0.3); EOSINOPHILS % (AUTO) 0 % (0-10); HEMATOCRIT 29 % (40-54); HEMOGLOBIN 9.2 g/dL (13.3-17.7); LYMPHOCYTES # (AUTO) 1.3 10^3/uL (1.0-4.0); LYMPHOCYTES % (AUTO) 4 % (12-44); MEAN CORPUSCULAR HEMOGLOBIN 28 pg (25-34); MEAN CORPUSCULAR HGB CONC 32 g/dL (32-36); MEAN CORPUSCULAR VOLUME 88 fL (80-99); MEAN PLATELET VOLUME 8.8 fL (9.0-12.2); MONOCYTES # (AUTO) 2.2 10^3/uL (0.0-1.0); MONOCYTES % (AUTO) 7 % (0-12); NEUTROPHILS # (AUTO) 25.4 10^3/uL (1.8-7.8); NEUTROPHILS % (AUTO) 87 % (42-75); PLATELET COUNT 362 10^3/uL (130-400); WHITE BLOOD COUNT 29.3 10^3/uL (4.3-11.0)
[2022-09-29 15:06] LABS: ALBUMIN 3.3 GM/DL (3.2-4.5)
[2022-09-29 15:08] LABS: CALCIUM 8.8 MG/DL (8.5-10.1)
[2022-09-29 15:09] LABS: TOTAL PROTEIN 6.2 GM/DL (6.4-8.2)
[2022-09-29 15:11] LABS: BILIRUBIN,TOTAL 0.8 MG/DL (0.1-1.0)
[2022-09-29 15:13] LABS: CREATININE SERUM 1.64 MG/DL (0.60-1.30)
[2022-09-29 15:15] VITALS: BP 95/63
[2022-09-29 15:15] LABS: MAGNESIUM 2.1 MG/DL (1.6-2.4)
[2022-09-29 15:52] LABS: POTASSIUM 2.3 MMOL/L (3.6-5.0)
[~2022-10-06] VITALS: Ht 162.6 cm; Wt 60.2 kg
[~2022-10-06 08:47] MED LIST changes: -GADOTERATE 0.5 MMOL/ML (CLARISCAN) 15 ML VIAL IV ONE; +HEParin (CENTRAL IV FLUSH) 500 UNIT/5 ML SYR IV ONE; +HEParin (CENTRAL IV FLUSH) 500 UNIT/5 ML SYR ONE; +NS IV 1000 ML (CANCER CTR) IV SCH; +NS IV 1000 ML 1,000 ML IV ONE; +NS IV 1000 ML 1,000 ML ONE; +NS IV 500 ML 500 ML IV ONE; +NS IV 500 ML 500 ML ONE; +ONDANSETRON INJECTION 4 MG/2 ML (SDV) IVP ONE; +PROCHLORPERAZINE INJ 10 MG/2ML VIAL IV ONE
[2022-10-06] MEDS ORDERED: POTASSIUM CHLORIDE INJ 40 MEQ in D5 NS 1,000 ML IV SOLN 1,000 ML IV ONE (09:30)
[2022-10-06] MEDS ORDERED: POTASSIUM CHLORIDE INJ 40 MEQ in NS IV 1000 ML 1,000 ML IV ONE (09:32)
[2022-10-06 11:32] VITALS: BP 93/59
[2022-10-06] MEDS ORDERED: HEParin (CENTRAL IV FLUSH) 500 UNIT/5 ML SYR IV ONE (13:45)
== END 2022-10-22 | disposition home or self-care (01) ==
LOC: ONC 08:47
PROVIDERS: ATTEND Internal Medicine Hematology & Oncology
DX: Z51.11 Encounter for antineoplastic chemotherapy (principal); Z45.2 Encounter for adjustment and management of vascular access device; C62.90 Malignant neoplasm of unspecified testis, unspecified whether descended or undescended
CPT/HCPCS: 36591; 80053; 83735; 85025; 96360; 96375; 96523; 99214